=== PATIENT | female | born 1975 | race Caucasian/White ===

== ENCOUNTER 2017-09-24 11:29 | Emergency (ER) | payer OTHER, SELFPAY ==
[2017-09-24 11:31] VITALS: BP 120/76; PULSE 79; RESP 16; O2SAT 100; BMI 22.3
--- NOTE | 2017-09-24 11:42 | NURSING ---
NO OLD EKGS
--- NOTE | 2017-09-24 11:48 | EKG12_ITS ---
Test Reason : CP Blood Pressure : / mmHG Vent. Rate : 082 BPM Atrial Rate : 082 BPM P-R Int : 128 ms QRS Dur : 074 ms QT Int : 360 ms P-R-T Axes : 069 043 063 degrees QTc Int : 420 ms Normal sinus rhythm Normal ECG Confirmed by LEEANN DUBON, BERNICE ([id number]), editorial director ILDEFONSO ROLDAN ([id number] on 09/27/2017 8:37:59 AM Referred By: Confirmed By:BERNICE BRADSHAW MD
[2017-09-24 12:06] LABS: Absolute Lymphocyte Count 1.02 X10^3/ul (0.83-4.51); Absolute Neutrophil Count 3.8 X10^3/uL (2.0-7.7); Basophil# 0.04 X10^3/uL; Basophil% 0.8 % (0-1); Eosinophil# 0.05 X10^3/uL; Hematocrit 38.5 % (37-47); Hemoglobin 12.5 g/dl (12.0-15.0); Lymphocyte # 1.02 X10^3/ul (4.0); Lymphocyte % 19.6 % (19-41); Mean Corp Hgb Conc 32.5 g/gl (32-36); Mean Corpuscular Volume 101.6 fL (81-99); Mean Platelet Vol. 10.3 fl (6.2-12.0); Monocyte# 0.34 X10^3/uL; Monocyte% 6.5 % (0-10); Neutrophil # 3.75 X10^3/uL (2.7-7.7); Neutrophil % 71.9 % (47-70); Platelet Count 280 K/mm3 (150-450); RBC Distribution Width CV 12.4 % (11.6-14.6); RBC Distribution Width SD 45.5 fl (35.1-43.9); Red Blood Count 3.79 M/mm3 (4.2-5.4); White Blood Count 5.2 K/mm3 (4.4-11.0)
[2017-09-24 12:08] LABS: POSITIVE COUNT NO; POSITIVE DIFFERENTIAL NO; POSITIVE MORPHOLOGY NO
--- NOTE | 2017-09-24 12:14 | RAD_ITS ---
STUDY: X-RAY CHEST REASON FOR EXAM: Female, 41 years old. Chest pain. TECHNIQUE: PA and lateral views of the chest. COMPARISON: Prior comparison studies are not available for review at this time. FINDINGS: Cardiac monitoring leads are present. The lungs are clear and hyperexpanded. There is no demonstrated pleural abnormality. Normal size heart. Normal mediastinum and flakita. There is prominence of the pulmonary hilar arteries without peripheral pulmonary vascular congestion. Normal visualized aortic arch and descending thoracic aorta. There is an increased kyphosis of the thoracic spine. Normal visualized ribs, clavicles, and shoulders. There is no demonstrated abnormality of the visualized soft tissue structures of the upper abdomen. RAD/Chest PA and Lateral IMPRESSION: No radiographic evidence of acute cardiopulmonary disease. Electronically Signed: Debbie Hill MD at 12:33 EST , Service support ,
[2017-09-24 12:22] LABS: Anion Gap 9 (5-15); BUN 9 mg/dL (7-18); BUN/Creat Ratio 10.9 RATIO (10-20); Calcium,Total 9.4 mg/dL (8.5-10.1); Chloride 104 mmol/L (98-107); Creatinine, Serum 0.83 mg/dL (0.55-1.02); EST Glomerular Filtration Rate 81 mL/min (>60); Est Glom Filt Rate - Afr Amer 98 mL/min (>60); Glucose 87 mg/dL (74-106); Potassium 4.2 mmol/L (3.5-5.1); Sodium Level 142 mmol/L (136-145)
[2017-09-24 12:37] VITALS: BP 109/57; PULSE 84; RESP 18; O2SAT 100
--- NOTE | 2017-09-24 12:39 | ED.DCSUM_ITS ---
- ER Visit Summary Date of Service: 09/24/17 Chief Complaint: Chest pain History of Present Illness: The patient is a 41 F presenting with 2 weeks of intermittent midsternal nonradiating chest pain that has now been constant for the past 48 hours. She has a history of mitral valve prolapse and palpitations as well as anxiety and this does feel somewhat similar but she was concerned because the symptoms have been fairly constant now for 2 days. The pain is not pleuritic nor is it exertional or associated with diaphoresis or dyspnea. She denies recent travel or mobilization. She has been under a fair amount of stress recently and has been seeing a counselor. Denies any suicidal thoughts or ideation. Physical Examination: Vital signs are within normal limits. She is not in distress. Neck is supple. Heart tones are regular and without murmur. Lungs are clear bilaterally. Abdomen is soft and nontender. No tenderness along the lower extremity venous system, palpable cords, edema, or other evidence of DVT. Test Results: CBC and chemistries both normal. Troponin negative after 48 hours of constant symptoms. EKG unremarkable. Two-view chest x-ray unremarkable based on my independent interpretation. Emergency Department Course and Treatment: Workup here is unremarkable. Troponin negative after 2 days of symptoms which makes acute coronary syndrome extremely unlikely. The pain is not pleuritic and she has no clinical evidence of DVT. Additionally, her pulse ox is 100% so I think that pulmonary embolism is unlikely. Overall she looks well and I think she can safely follow-up as an outpatient. Treatment Plan: Follow-up with her primary care physician Disposition: Home in stable condition Impression: Initial encounter chest pain of uncertain etiology, initial encounter anxiety This note was generated with [employer] dictation software. It may contain incorrect words, spelling, and punctuation that were not noted in review of the chart prior to signing ED Disposition - Plan for ED Patient: Chief Complaint: Chest Pain Instructions: ED Chest Pain Atypical Unkn Cause Referrals: Ciara Frederick DO [Primary Care Provider] -
[2017-09-24 12:59] VITALS: BP 107/61; PULSE 71; RESP 16; O2SAT 100
== END 2017-09-24 13:04 | disposition home or self-care (01) ==
LOC: ED 12:41
PROVIDERS: Emergency Provider Emergency Medicine; Family Provider Internal Medicine; PCP Internal Medicine
DX: R07.9 Chest pain, unspecified (principal); R00.2 Palpitations; F41.9 Anxiety disorder, unspecified
CPT/HCPCS: 71046; 80048; 84484; 85025; 93005; 99285; A4216

== ENCOUNTER 2018-09-04 21:45 | Inpatient (IN) | payer OTHER, SELFPAY ==
[2018-09-04 17:22] VITALS: BMI 32.8
--- NOTE | 2018-09-04 20:49 | OB.TRI.NOTE ---
- Problem List (1) Advanced maternal age (AMA), 40 years or greater Status: Acute (2) Previous section Status: Acute (3) False labor after 37 completed weeks of gestation Status: Acute History of Present Illness Date of Service: 09/04/18 Was patient seen by the physician?: Yes Reason For Visit: R/O LABOR Date of Service: 09/04/18 Final DESMOND: 09/06/18 Final DESMOND Source: LMP Gestational age: 39 Weeks and 5 Days History of Present Illness: Patient presents to triage for labor evaluation today. Patient is 39+5 weeks by LMP and early 1st trimester ultrasound dating. Patient reports that ctx were intermittent on and off throughout last night and then became regular q 30 minutes apart starting at 0700 in the morning. As the day progressed, the ctx also progressed and became longer and stronger to where they are every 2-5 minutes apart and lasting 30-90 seconds in length. Patient denies VB, denies SROM. reports +FM. Patient's course has been uncomplicated though her history is significant for hx of multiple myomectomies that did not perforate through uterus and hx of LTCS for intolerance to labor with persistent deep variables from partially prolapsed umbilical cord. Allergies celecoxib [From Celebrex] Allergy (Verified 09/24/17 11:30) Other latex Allergy (Verified 09/24/17 11:30) Other morphine Allergy (Verified 09/24/17 11:30) Anaphylaxis NSAIDS (Non-Steroidal Anti-Inflamma Allergy (Verified 09/04/18 17:38) Hives food dye Allergy (Uncoded 09/04/18 17:38) Hives Review of Systems Constitutional: Denies: Chills, Fever, Weight Change HEENT: Denies: Head Aches, Sinus Congestion, Sinus Drainage Cardiovascular: Denies: Chest Pain, Palpitations Respiratory: Denies: Cough, Shortness of breath at rest, Sputum production Gastrointestinal: Denies: Nausea, Vomiting Genitourinary: Denies: Dysuria Musculoskeletal: Denies: Joint Pain, Joint Tenderness Skin: Denies: Rash, Wounds Neurological: Denies: Numbness, Tingling, Focal weakness Psychiatric: Denies: Anxiety, Depression, Homicidal Ideations, Suicidal Ideations Hematologic/ Lymphatic: Denies: Easy Bruising, Easy Bleeding Physical Exam Vitals: See nursing note for vital signs - patient is afebrile and normotensive General: Alert, Oriented x3, No apparent distress HEENT: Atraumatic, Normocephalic. Negative for: Thyromegaly, Lymphadenopathy Cardiovascular: Regular rate, Regular Rhythm Lungs: Clear to auscultation Abdomen: Soft, Non Tender, Gravid, Appropriate for Gestational Age Extremities:: No edema Neurological: Deep Tendon Reflexes 2+/4 and Symmetrical, Neuro grossly intact RHEUMATOLOGY SPECIALIST: Normal external genitalia. Negative for: Vulvar lesions Estimated gestational size: Appropriate for gestational size Presentation: Cephalic Cervix Dilation (cm): 3 - Per RN Station: -2 Effacement (%): 80 NST - FHR Rate Baby A Baseline: 130 Variability:: Moderate Accelerations:: 15 x 15 Decelerations:: None NST Reactive:: Yes, Appropriate for gestational age FHR Category:: Category I Uterine Activity:: Ctx q 2-10 minutes, most mildly palpable with strongest palpable about 10 minutes apart. Ctx lasting 40-120 seconds. Impression/Plan 42 y/o @ 39.5 wks, Category I FHT, TOLAC, Early vs. False Labor P: 1) Consultation with Dr. Tsang OB back-up - cervix is unchanged after several hours after walking and position changes. Patient elects discharge to home as NST is reactive 2) Labor precautions reviewed 3) RTC as scheduled tomorrow if labor does not progress for repeat labor evaluation Siri NIXON
[2018-09-04] MEDS: Lactated Ringers 1,000 ML 50 ML IV ×2 (22:32→23:40)
--- NOTE | 2018-09-04 22:39 | PCM.HP.OB ---
- Problem List (1) Advanced maternal age (AMA), 40 years or greater Status: Acute (2) Previous section Status: Acute (3) False labor after 37 completed weeks of gestation Status: Acute History Date of Admission: 09/04/18 Final DESMOND: 09/06/18 Final DESMOND Source: LMP Gestational age: 39 Weeks and 5 Days History of this : This is a 42 year-old, G [4], P [1], at 39.5 weeks gestational age returns back to triage reporting stronger and more intense contractions currently. Patient reports that contractions are closer and stronger now. Patient denies any vaginal bleeding, leaking of fluid or additional vaginal discharge. Patient continues to feel +FM. Per patient, contractions are coming <5 minutes apart and are lasting 60-120 seconds long. See [facility] record for full Personal Medical, Surgical, and Family Hx Allergies celecoxib [From Celebrex] Allergy (Verified 09/24/17 11:30) Other latex Allergy (Verified 09/24/17 11:30) Other morphine Allergy (Verified 09/24/17 11:30) Anaphylaxis NSAIDS (Non-Steroidal Anti-Inflamma Allergy (Verified 09/04/18 17:38) Hives food dye Allergy (Uncoded 09/04/18 17:38) Hives Home Medications: Home Medications Albuterol Aerosols 09/04/18 Cetirizine HCl [Zyrtec] 10 mg PO 09/04/18 DiphenhydrAMINE [Benadryl] 25 mg PO BID PRN PRN 09/04/18 Epinephrine [Epi Pen] 0.3 mg 09/04/18 L.acidoph,Paracasei, B.lactis [Probiotic] 1 each PO 09/04/18 Vits [Prenatabs FA] 1 tablet PO DAILY 09/04/18 Zantac 09/04/18 Zoloft 50mg PO daily Smoking Status: Former smoker Alcohol: None History Past Pregnancies: Past Pregnancies Delivery Date Name GA/Weeks Outcome Route Weight Infant Gender Labor Length Anesthesia Delivery Location Provider FOB 09/2004 6 weeks SAB 12/2013 40 weeks Live LTCS 7#3oz F 12/2016 11 weeks [facility] Labs: GBS neg, 1 hour GCT = 88, AFP Neg, Urine Tox Neg, O+ Abs Neg, Syphilis Neg, HIV NR, Rubella Immune, HepBsAg Neg, GC/CT = Neg/Neg, Urine Culture Neg, CBC WNL, TSH = 1.860, Vit B12 = 545 Expected Delivery Method: Spontaneous Vaginal, Describe any other labor & delivery plans:: Patient is considering an epidural at this time - may elect Nitrous Oxide first Number of Visits: 15 Review of Systems Constitutional: Denies: Chills, Fever, Weight Change HEENT: Denies: Head Aches, Sinus Congestion, Sinus Drainage Cardiovascular: Denies: Chest Pain, Palpitations Respiratory: Denies: Cough, Shortness of breath at rest, Sputum production Gastrointestinal: Denies: Abdominal Pain, Nausea, Vomiting Genitourinary: Denies: Dysuria Musculoskeletal: Denies: Joint Pain, Joint Tenderness Skin: Denies: Rash, Wounds Neurological: Denies: Numbness, Tingling, Focal weakness Psychiatric: Denies: Anxiety, Depression, Homicidal Ideations, Suicidal Ideations Hematologic/ Lymphatic: Denies: Easy Bruising, Easy Bleeding Physical Exam Vitals: VSS, Afebrile - see nursing note for copy of vital signs General: Alert, Oriented x3, No apparent distress HEENT: Atraumatic, Normocephalic. Negative for: Thyromegaly, Lymphadenopathy Cardiovascular: Regular rate, Regular Rhythm Lungs: Normal air movement Abdomen: Soft, Non Tender, Gravid, - - palpate strong with contractions Neurological: Deep Tendon Reflexes 2+/4 and Symmetrical, Neuro grossly intact BUTTON BREAKER: Normal external genitalia. Negative for: Vulvar lesions Estimated gestational size: Appropriate for gestational size Presentation: Cephalic Cervix Dilation (cm): 4 - Per staff anesthesiologist Station: -2 Effacement (%): 80 Assessment/Plan All Active Problems Advanced maternal age (AMA), 40 years or greater (Acute) Previous section (Acute) False labor after 37 completed weeks of gestation (Acute) This is a 42 year-old, G [4], P [1], at 39.5 weeks gestational age, TOLAC, Category I FHT, Labor. P: 1) Admit patient - IV heplock started and admission bloodwork drawn 2) Expectant management at this time 3) Epidural at request - may have nitrous at this time 4) Dr. Tsang OB back-up aware of admission and plan of care at this time 5) Anticipate Siri Hernández WASTE DISPOSAL ATTENDANT-JAQUELINEM
[2018-09-04 23:16] LABS: Hematocrit 38.6 % (37-47); Hemoglobin 12.5 g/dl (12.0-15.0); Mean Corp Hgb Conc 32.4 g/gl (32-36); Mean Corpuscular Hgb 33.2 pg (27.0-32.0); Mean Corpuscular Volume 102.4 fL (81-99); Mean Platelet Vol. 11.6 fl (6.2-12.0); Platelet Count 177 K/mm3 (150-450); RBC Distribution Width CV 17.8 % (11.6-14.6); RBC Distribution Width SD 64.5 fl (35.1-43.9); Red Blood Count 3.77 M/mm3 (4.2-5.4); White Blood Count 15.2 K/mm3 (4.4-11.0)
[2018-09-04 23:18] LABS: Scan Indicated on CBC? Y/N NO
--- NOTE | 2018-09-05 00:33 | PCM.PN.BLA ---
Progress Note Addendum: Update from nursing staff. Patient is now 5/80/-2 and continues to contract regularly at this time. HEEL SANDER RUBBER has been present in patient's room and spoke with patient. Epidural catheter has been placed but was not fully dosed per patient's preference, only test dose was given. Patient continues to labor well, supported at bedside by her . O: VSS, Afebrile FHT baseline 130, moderate variability, + accels, no decels noted Ctx q 3-5 minutes, lasting 60-120 seconds, palpate strong SVE = Deferred by this provider at this time, as last exam by RN < 1 hour ago P: 1) Dr. Tsang updated on patient status 2) Continue expectant management, encourage PO hydration and position changes 3) Will reassess cervix PRN with changes in maternal or status. Siri Hernández APRN-MAREN
--- NOTE | 2018-09-05 00:43 | PN_ITS ---
Progress Note Addendum: Update from nursing staff. Patient is now 5/80/-2 and continues to contract regularly at this time. PROCUREMENT CONSULTANT has been present in patient's room and spoke with patient. Epidural catheter has been placed but was not fully dosed per patient's preference, only test dose was given. Patient continues to labor well, supported at bedside by her . O: VSS, Afebrile FHT baseline 130, moderate variability, + accels, no decels noted Ctx q 3-5 minutes, lasting 60-120 seconds, palpate strong SVE = Deferred by this provider at this time, as last exam by RN < 1 hour ago P: 1) Dr. Tsang updated on patient status 2) Continue expectant management, encourage PO hydration and position changes 3) Will reassess cervix PRN with changes in maternal or status. Siri Hernández APRN-MAREN
--- NOTE | 2018-09-05 03:31 | PCM.PN.OB ---
Patient Problems: Active and Suspected Problems Advanced maternal age (AMA), 40 years or greater (Acute) Previous section (Acute) False labor after 37 completed weeks of gestation (Acute) Subjective: Patient changing positions, rocking back and forth while standing. Intermittent external monitoring of baby noted - recommendation for placement of internal monitors at this time to better assess heart tones and contraction pattern. Patient chose to have epidural catheter placed, considering having epidural dosed soon as her labor is becoming more uncomfortable. Patient requests SVE check at this time. Objective: FHT baseline 130, moderate variability, + accels, rare early or mild variable decel with mario to 110 for 10-15 seconds during contraction noted Ctx q 2-5 minutes, palpate moderate to strong lasting 60 seconds SVE = 6/90/-1, AROM for scant pink-brown fluid. Fluid without odor. FSE and IUPC placed at this time. - Physical Exam General: Alert, Oriented x3, Cooperative HEENT: Normocephalic Lungs: Normal air movement Cardiovascular: Regular rate, Regular Rhythm Abdomen: Soft, Non Tender, Non-Distended Extremities: No edema Weight: 191 lb Body Mass Index (BMI) 32.8 Laboratory Tests Past 24 Hrs 09/04/18 09/04/18 22:32 22:32 WBC 15.2 H RBC 3.77 L Hgb 12.5 Hct 38.6 MCV 102.4 H MCH 33.2 H MCHC 32.4 RDW 17.8 H RDW Differential 64.5 H Plt Count 177 MPV 11.6 Blood Type O POSITIVE Antibody Screen NEGATIVE Medical Necessity - Tobacco Use Smoking Status: Former smoker Assessment/Plan All Active Problems Advanced maternal age (AMA), 40 years or greater (Acute) Previous section (Acute) False labor after 37 completed weeks of gestation (Acute) A: 42 y/o @ 39.6 weeks, TOLAC, Category I FHT, Active Labor P: 1) Continue to monitor contraction pattern, if inadequate contraction pattern consider IV pitocin for labor augmentation 2) Patient requests epidural to be dosed at this time - anesthesia contacted 3) Anticipate , will start pushing with maternal urge or sensation of pelvic pressure Siri NIXON
[2018-09-05] MEDS: 0.9% Normal Saline 100 ML IV.SOLN. IV (03:45)
[2018-09-05] MEDS: Ondansetron 4 MG/2 ML Vial IV (04:02)
[2018-09-05] MEDS: Lactated Ringers 1,000 ML 50 ML IV ×2 (04:53→08:55)
--- NOTE | 2018-09-05 05:13 | PCM.PN.BLA ---
Progress Note Addendum: Urgently called to patient's room - prolonged heart rate decel noted with mario to 60-90s x 5 minutes with spontaneous recovery with maternal position changes, fluid bolus and O2 administration by facemask. Cervical exam done and patient found to be C/C/+1. After decel heart tracing baseline returned to 120 with moderate variability. + scalp stim also noted during exam. Will start trial of pushing soon. Anticipate . Dr. Tsang appraised of patient status and plan to start pushing shortly. Siri Hernández APRN-MAREN
--- NOTE | 2018-09-05 06:56 | PCM.PN.BLA ---
Progress Note Patient continues to push at this time - station of head remains +1 station. Patient reports fatigue - starting to feel increased incidence of heartburn and more frequent vomiting noted. Dr. Tsang updated of patient status, will continue to push at this time. Siri NIXON
--- NOTE | 2018-09-05 07:49 | PCM.PN.BLA ---
Progress Note Addendum: Patient reports exhaustion, feels like the baby is not moving down anymore and she is now requesting a repeat LTCS at this time. Repeat SVE = C/C/+1 station with small amount of caput. EFW = 8#, baby in LUAN position by Vlad's. Discussed option of IV pitocin administration for labor augmentation - contractions q 2 minutes currently and moderately strong to palpation. Patient declines IV pitocin augmentation. Desires to proceed with repeat LTCS at this time. Dr. Tsang notified of plan. Non-urgent LTCS called at this time - Category I FHT noted. Patient transferred to medical management. Will proceed with LTCS when Dr. Tsang is finished with her current operative case in the OR. Siri NIXON
--- NOTE | 2018-09-05 07:57 | PN_ITS ---
Progress Note Addendum: Patient reports exhaustion, feels like the baby is not moving down anymore and she is now requesting a repeat LTCS at this time. Repeat SVE = C/C/+1 station with small amount of caput. EFW = 8#, baby in LUAN position by Vlad's. Discussed option of IV pitocin administration for labor augmentation - contractions q 2 minutes currently and moderately strong to palpation. Patient declines IV pitocin augmentation. Desires to proceed with repeat LTCS at this time. Dr. Tsang notified of plan. Non-urgent LTCS called at this time - [facility] I T noted. Patient transferred to medical management. Will proceed with LTCS when Dr. Tsang is finished with her current operative case in the OR. Siri NIXON
--- NOTE | 2018-09-05 08:26 | NURSING ---
2304 elieser-aware of pt here , going to come in to evaluate pt 2311-elieser radar operator in room discussion done to place catheter and leave in, in the event of emergent situation for r c/s. 0009- test dose for epidural catheter 0337-called darwinr to come start epidural dosing 0345-epidural infusion started.
[2018-09-05] MEDS: Sodium Citrate/Citric Acid 30 ML UDC PO (08:55)
--- NOTE | 2018-09-05 09:08 | PCM.PN.BLA ---
Progress Note pt was seen at bedside, counseled on risks of repeat fully dilated Failed TOLAC c/s- pt was counseled on risks of bleeding, infection, injury to pelvic structures, trauma due to engaged head, cervical laceration. pt at this time accepts the risks and wishes to proceed. pt would like to proceed with BTL at this time as well. will proceed with section - pre op abx ordered- new consent obtained. FHR Cat 1.
[2018-09-05] MEDS: Oxytocin 30 units/NS 500 ml 30 UNITS/500 ML IV.SOLN 334 UNITS IV (09:59)
--- NOTE | 2018-09-05 10:17 | PCM.OB.VAG ---
Vaginal Delivery Maternal Presentation: Active Labor Amniotic Membrane Rupture Type: Artificial Amniotic Fluid Description: Clear Final DESMOND: 09/06/18 Gestational age: 39 Weeks and 6 Days Date of Procedure: 09/05/18 Pre-Operative Diagnosis: term gestation, TOLAC Post-Operative Diagnosis: Live male , successful , term gestation Surgery/ Procedure Performed: Vacuum Assisted Vaginal Delivery - Vacuum applied but suctioned was not able to be maintained- i was able to used the vacuum one pull with one popoff at +3 station- brought head to crowing and head delivered with good maternal effort. Type of Anesthesia: Epidural Description of Procedure: Pt was taken to OR for Repeat cs- while on table in supine position after epidural dosing i examined patient- found to be at +2-+3 station and at this time i felt the patient could deliver vaginally as trying to disengage head could cause more pontential injury. OR was complete with Double set up and staff available. Pt was placed in yellow fin stirrups and pushed effectively. Vacuum was attempted but unable to keep suction- however on one attempt suction remained and with gentle traction and good maternal pushing efforts the head crowned- vacuum popped off x 1 and with next contraction the infant delivered with good maternal effort- no complication with delivery. Delayed cord clamping performed. Terminal meconium noted. vigorous at delivery. Second degree perineal laceration repaired with 2-0 vicryl. placenta delivered spontaneously. Presentation: Vertex Placental Delivery Description: Spontaneous Placenta Disposition: [facility] Cord Vessel Description: 3 Vessels Cord Entanglement: None Drain: [place] to straight drain Estimated Blood Loss: 300 A gender: Male (1 minute): 8 (5 minute): 9 Episiotomy Description: None Laceration: Perineal Extension/lac - repaired with 2-0 vicryl, 2nd degree Medications given after delivery: IV Pitocin Complications: None
--- NOTE | 2018-09-05 10:23 | OP.PCM_ITS ---
Vaginal Delivery Maternal Presentation: Active Labor Amniotic Membrane Rupture Type: Artificial Amniotic Fluid Description: Clear Final DESMOND: 09/06/18 Gestational age: 39 Weeks and 6 Days Date of Procedure: 09/05/18 Pre-Operative Diagnosis: term gestation, TOLAC Post-Operative Diagnosis: Live male , successful , term gestation Surgery/ Procedure Performed: Vacuum Assisted Vaginal Delivery - Vacuum applied but suctioned was not able to be maintained- i was able to used the vacuum one pull with one popoff at +3 station- brought head to crowing and head delivered with good maternal effort. Type of Anesthesia: Epidural Description of Procedure: Pt was taken to OR for Repeat cs- while on table in supine position after epidural dosing i examined patient- found to be at +2-+3 station and at this time i felt the patient could deliver vaginally as trying to disengage head could cause more pontential injury. OR was complete with Double set up and staff available. Pt was placed in yellow fin stirrups and pushed effectively. Vacuum was attempted but unable to keep suction- however on one attempt suction remained and with gentle traction and good maternal pushing efforts the head crowned- vacuum popped off x 1 and with next contraction the infant delive red with good maternal effort- no complication with delivery. Delayed cord clamping performed. Terminal meconium noted. Infant vigorous at delivery. Second degree perineal laceration repaired with 2-0 vicryl. placenta delivered spontaneously. Presentation: Vertex Placental Delivery Description: Spontaneous Placenta Disposition: [facility] Cord Vessel Description: 3 Vessels Cord Entanglement: None Drain: [place] to straight drain Estimated Blood Loss: 300 Infant A gender: Male (1 minute): 8 (5 minute): 9 Episiotomy Description: None Laceration: Perineal Extension/lac - repaired with 2-0 vicryl, 2nd degree Medications given after delivery: IV Pitocin Complications: None
[2018-09-05] MEDS: Oxytocin 30 units/NS 500 ml 30 UNITS/500 ML IV.SOLN 167 UNITS IV (10:30)
[2018-09-05 18:00] VITALS: BP 112/61; PULSE 121; RESP 16; TEMP 36.4; O2SAT 97
[2018-09-05] MEDS: Acetaminophen 500 MG Tablet 1000 MG PO (18:22)
[2018-09-05 20:43] VITALS: BP 105/55; PULSE 103; RESP 16; TEMP 36.6; O2SAT 96
[2018-09-05 23:43] VITALS: BP 118/60; PULSE 61; RESP 18; TEMP 36.5; O2SAT 98
[2018-09-06 04:36] VITALS: BP 111/57; PULSE 75; RESP 18; TEMP 36.3; O2SAT 96
--- NOTE | 2018-09-06 08:11 | PCM.PN.OB ---
Patient Problems: Active and Suspected Problems Advanced maternal age (AMA), 40 years or greater (Acute) Previous section (Acute) False labor after 37 completed weeks of gestation (Acute) Subjective: pt seen up at bedside, doing well. reports good pain control. Lochia mild. Breast feeding well. pt reports voiding w/o difficulty - Physical Exam General: Alert, Oriented x3 Vital Signs Temp Pulse Resp BP Pulse Ox 97.4 F L 75 18 111/57 L 96 09/06/18 04:36 09/06/18 04:36 09/06/18 04:36 09/06/18 04:36 09/06/18 04:36 Oxygen Delivery Method Room Air Weight: 86.636 kg Body Mass Index (BMI) 32.8 Intake and Output for Last 24 Hours 09/04/18 09/05/18 09/06/18 23:59 23:59 23:59 Intake Total 3212 / 3212 Output Total 1425 / 1425 Balance 1787 / 1787 Medical Necessity - Tobacco Use Smoking Status: Former smoker Assessment/Plan All Active Problems Advanced maternal age (AMA), 40 years or greater (Acute) Previous section (Acute) False labor after 37 completed weeks of gestation (Acute) PPD#1, doing well Pain mgmt ambulation dc home requested per patient
--- NOTE | 2018-09-06 08:15 | DCINST_ITS ---
Discharge Diet: No Restrictions Discharge Activity: Return to Normal Activity, May not drive while taking narcotic pain medications., May Shower May resume sexual activity in: 4-6 weeks Additional Activity Instructions:: Nothing in the vagina for 4-6 weeks. You may return to work/school in 6 weeks. Call your doctor if your incision/area has: Continuous Slow Oozing, Sudden Increased Bleeding, Increased Pain/ Swelling, Increased Redness, Foul Smelling Discharge Additional Instructions: If you experience any of the following, contact your healthcare provider. * Bleeding that soaks a pad every hour for 2 hours * Fever 100.4 or higher * Unrelieved incision or abdominal pain * Swelling, redness, discharge or bleeding from your incision or episiotomy site * Your incision begins to separate * Problems urinating (including inability to urinate or burning while urinating). * Visual changes * Severe headache * Flu-like symptoms * Pain or redness in one of both of your breasts * Pain, warmth, tenderness or swelling in your legs, especially the calf area * Frequent nausea and vomiting * Symptoms of depression or anxiety If you experience any of the following, call 911 or go to the nearest Emergency Room. * Chest pain * Problems breathing * Seizure activity * Partial or complete paralysis of a body part, slurred speech, weakness or drooping of the face, or a sudden inability to walk or hold your balance Allergies/Adverse Reactions: Allergies celecoxib [From Celebrex] Allergy (Verified 09/24/17 11:30) Other latex Allergy (Verified 09/24/17 11:30) Other morphine Allergy (Verified 09/24/17 11:30) Anaphylaxis NSAIDS (Non-Steroidal Anti-Inflamma Allergy (Verified 09/04/18 17:38) Hives food dye Allergy (Uncoded 09/04/18 17:38) Hives Medications to take at Discharge Albuterol Aerosols 2 puff PO PRN PRN 09/04/18 Cetirizine HCl [Zyrtec] 10 mg PO DAILY 09/04/18 DiphenhydrAMINE [Benadryl] 25 mg PO BID PRN PRN 09/04/18 Epinephrine [Epi Pen (for allergic rxn)] 0.3 mg PRN PRN 09/04/18 L.acidoph,Paracasei, B.lactis [Probiotic] 1 each PO DAILY 09/04/18 Vits [Prenatabs FA ] 1 tablet PO DAILY 09/04/18 Zantac 150 mg PO BID 09/04/18 Ferrous Sulfate Syrup 300 mg PO DAILY@0800 09/05/18 Pyridoxine HCl [Vitamin B6] 100 mg PO DAILY 09/05/18 Acetaminophen [Tylenol] 1,000 mg PO Q8H PRN PRN #30 tablet 09/06/18 The following prescriptions were given: Acetaminophen [Tylenol] 1,000 mg PO Q8H PRN PRN #30 tablet PRN Reason: MILD PAIN (-10/29)/Temp>99.6F When: Call to make an appointment with your doctor in 6 weeks. If you had elevated Blood Pressure or 4th degree laceration you will need to be seen in 2 weeks. Primary Care Physician: Cheryl Maguire DO [Primary Care Provider] - Test Results: Test results from this visit will be discussed in further detail at your follow- up appointment, if applicable.
[2018-09-06 09:25] VITALS: BP 102/56; PULSE 83; RESP 16; TEMP 36.8; O2SAT 96
--- NOTE | 2018-09-06 12:45 | CASEMGMT ---
Social Work Brief Assessment - Labor and Delivery Unit Refer documentation below for further details. Date of Referral/Notification: 12/04/2018 Time of Referral: 9 Referred By: Dr Lemus Reason for Referral: maternal anxiety history Date of Intervention: 09-06-2018 Time of Intervention: 1245 Informant: Medical record and mother of baby (JERE) Marni Morelos History: MOB is a 42-year-old female, G4, P1 to 2 after delivering baby Vasiliy Morelos. MOB delivered baby via delivery. Baby Vasiliy weighed 7 pounds 14 ounces at , ?s 8 and 9 at 1 and 5 minutes of life. MOB with history of IUI though for child born in 2013. MOB has an older daughter at home. Father of baby (FOB) is the father to both children and is Mark Murdock, age 49. Mark as older sons from a previous marriage, who all live out of [facility]. MOB denies abuse in relationship with FOB. MOB reports originally from the [facility] and moved back from [place] 2 years ago, first trying out the [facility] for a while and then moving back to [place]. MOB reports to have a college education, does stay at home at this point to care for the children. FOB works in management at [employer]. MOB reports depression and anxiety during this , prescribed Zoloft and that this has been helpful. MOB does have a counselor named Tessy. MOB reports that FOWilfrid has bipolar disorder, has been through [facility] IOP program, and is in current outpatient treatment. MOB reports family history for self of a sister, father, and grandfather with history of bipolar disorder. MOB repots a niece also struggles with depression. MOB denies nay history of suicidal thoughts, plans, intent, or past attempts. No thoughts of harm to others either. MOB denies any substance use or abuse history. Maternal drug screen done on 01-26-18 and negative for any drugs of abuse. Assessment: MOB pleasant, cooperative, talkative and engaged in conversation with this typewriters functional tester. MOB held good eye contact and with logical thought process and normal speech patterns. MOB reports to have needed supplies for baby, to have adequate finances, to have adequate support from FOB and from MOB?s mother who lives locally. MOB reports to feel a connection to this baby and is looking forward to going home. MOB receptive to discussions about depression, anxiety, psychosis risks and importance of self-care. MOB plans to remain on antidepressants in the period. MOB denies any concerns for home going and accepting of community resource information and depression packet this typewriters functional tester provided. Note, MOB attentive, gentle and engaged with during social work visit, had baby to breast, smiled at baby, and gazed at baby intermittently. MOB expressed thanks for social work visit and support this date. Plan: MOB and baby to home today. [facility] resources and packet provided including online and local supports available. No further needs requested or indicated. -JESSICA Solis, MS
[2018-09-06 13:59] VITALS: BP 114/60; PULSE 104; RESP 18; TEMP 36.6; O2SAT 96
== END 2018-09-06 16:15 | disposition home or self-care (01) | DRG 807 ==
PROVIDERS: Admitting Provider Obstetrics & Gynecology; Family Provider Internal Medicine; PCP Internal Medicine; Referring Provider Obstetrics & Gynecology; Visit Provider Obstetrics & Gynecology
DX: O34.219 Maternal care for unspecified type scar from previous cesarean delivery (principal); O76 Abnormality in fetal heart rate and rhythm complicating labor and delivery; O75.81 Maternal exhaustion complicating labor and delivery; O77.0 Labor and delivery complicated by meconium in amniotic fluid; O70.1 Second degree perineal laceration during delivery; Z88.5 Allergy status to narcotic agent; Z88.8 Allergy status to other drugs, medicaments and biological substances; Z91.040 Latex allergy status; Z87.891 Personal history of nicotine dependence; Z3A.39 39 weeks gestation of pregnancy; Z37.0 Single live birth
CPT/HCPCS: 59025; 59050; 85027; 86850; 86900; 99218; J7120; G0378; J2405

== ENCOUNTER 2019-06-21 13:32 | Emergency (ER) | payer MEDICAID, SELFPAY ==
[2019-06-21 13:33] VITALS: BP 119/83; PULSE 124; RESP 18; TEMP 36.1; O2SAT 95; BMI 27.4
--- NOTE | 2019-06-21 14:43 | ED.VISSUMM ---
- ER Visit Summary Date of Service: 06/21/19 Chief Complaint: [Sore throat] History of Present Illness: The patient is a 43 F [presents to the ER with complaint of a sore throat that started yesterday. Patient states that her daughter was seen in the emergency department yesterday and had a negative strep screen. Patient eventually was started on amoxicillin empirically until her culture results came back. Patient also has a young son with her today that also being seen in the emergency department who was seen for a viral URI by his primary care physician earlier in the week. Patient has minimal cough. She is had no fever. Patient has history of mastocytosis and history of mitral valve prolapse. Patient has had prior appendectomy and prior tonsillectomy.] Physical Examination: [HEENT-PERRLA, EOMI. Cranial nerves II through XII grossly intact. TMs clear. Mucous membranes moist. No adenopathy. Tonsils are absent. No pharyngeal erythema. No ulcerating lesions noted. Uvula midline without trismus. No significant adenopathy. Cardiovascular-regular rate and rhythm without murmur or ectopy Lungs-clear to auscultation, chest wall stable without crepitus or subcu emphysema Abdomen-normoactive bowel sounds, soft, nontender, no rebound or rigidity, no peritoneal signs. Extremities-intact ?4, normal range of motion, normal pulses, atraumatic] Test Results: [Rapid strep screen performed was negative.] Emergency Department Course and Treatment: [Patient to follow-up with primary care physician in 3 to 5 days.] Treatment Plan: [Follow up with primary care physician 3 to 5 days.] Disposition: [Discharged to home in stable condition] Impression: [Viral pharyngitis] This note was generated with [employer] dictation software. It may contain incorrect words, spelling, and punctuation that were not noted in review of the chart prior to signing ED Disposition - Plan for ED Patient: Referrals: Cheryl Maguire DO [Primary Care Provider] -
--- NOTE | 2019-06-21 14:45 | ED.DEP ---
ED Disposition - Plan for ED Patient: Instructions: PHARYNGITIS, Viral Referrals: Cheryl Maguire DO [Primary Care Provider] - 3-5 Days
[2019-06-21 14:51] VITALS: PULSE 98; RESP 17; O2SAT 96
== END 2019-06-21 14:56 | disposition home or self-care (01) ==
LOC: ED 13:54
PROVIDERS: Emergency Provider Emergency Medicine; Family Provider Internal Medicine; PCP Internal Medicine
DX: J02.8 Acute pharyngitis due to other specified organisms (principal); I34.1 Nonrheumatic mitral (valve) prolapse; Z79.899 Other long term (current) drug therapy
CPT/HCPCS: 87880; 99282

== ENCOUNTER → 2019-09-17 15:22 | Outpatient (CLI) | payer MEDICAID, SELFPAY ==
[2019-09-17 14:58] VITALS: BMI 27.4
--- NOTE | 2019-09-17 15:23 | RAD_ITS ---
STUDY: X-RAY CHEST REASON FOR EXAM: Female, 43 years old. Pt. states she has had a cough since MAY 2019, currently paired with a fever TECHNIQUE: PA and lateral views of the chest. COMPARISON: Comparison is made with prior examination dated September 24, 2017. FINDINGS: The lungs are clear and expanded. Scattered calcified granulomas. There is no demonstrated pleural abnormality. Normal size heart. Normal mediastinum and flakita. Normal visualized pulmonary arteries. Normal visualized aortic arch and descending thoracic aorta. Normal visualized thoracic spine. Normal visualized ribs, clavicles, and shoulders. There is no demonstrated abnormality of the visualized soft tissue structures of the upper abdomen. RAD/Chest PA and Lateral IMPRESSION: Normal x-ray examination of the chest. Electronically Signed: Orion Gaines, at 15:44 EST , Service support ,
== END ==
LOC: HPRAD 15:23
PROVIDERS: PCP Internal Medicine; Referring Provider Physician Assistant Surgical; Visit Provider Physician Assistant Surgical
DX: J20.9 Acute bronchitis, unspecified (principal)
CPT/HCPCS: 71046

== ENCOUNTER 2021-02-26 07:56 | Day surgery (SDC) | payer MEDICAID, SELFPAY ==
[2019-09-17 14:58] VITALS: BMI 27.4
--- NOTE | 2021-02-18 16:15 | PCM.HP.BLA ---
History and Physical Date of Admission: 02/26/21 Marilee Tsang MD Physician Specialty: SENIOR TALENT ACQUISITION SPECIALIST H&P ? Signed Encounter Date: 02/17/2021 Expand AllCollapse All Expand All by Default Hide copied text Hover for details Pre-Op History and Physical ? HPI: The patient is a 25 year old female presenting for discussion regarding painful heavy menses and possible EM polyp found on ultrasound. Pt was given management options and would like to proceed with surgical intervention with Hysteroscopy, D&C, polypectomy. Pt reports doing well with new pill- had menses still heavy and did have a couple days of light spotting after stopping menses. ? She is scheduled for Hysteroscopy D&C and polypectomy, for AUB, Endometrial polyp on 02/26/21. Procedure discussed along with risks, benefits and complications. Other alternatives discussed for management. Consent form signed? Yes. ? ? PAST MEDICAL HISTORY PAST MEDICAL HISTORY Diagnosis Date ? Abdominal pain, right lower quadrant ? ? Suspected ruptured ovarian cyst ? Acute appendicitis without mention of peritonitis 06/22/2011 ? Dysmenorrhea ? ? HSV (herpes simplex virus) anogenital infection 2017 ? PMH - PAST MEDICAL HISTORY OF 02/03/2002 ? color vision - normal ? PMH - PAST MEDICAL HISTORY OF ? ? Started Menstrual Period 06/30 ? ? PAST SURGICAL HISTORY PAST SURGICAL HISTORY Procedure Laterality Date ? LAPAROSCOPY, SURGICAL, APPENDECTOMY ? 06/22/11 ? ? ? CURRENT MEDICATIONS Current Outpatient Medications Medication Sig Dispense Refill ? valACYclovir (VALTREX) 500 mg tablet Take 1 tablet by mouth twice daily. 14 tablet 3 ? L-Norgest and E Estradiol-E Estrad (SEASONIQUE) 0.15 mg-30 mcg (84)/10 mcg (7) Take 1 tablet by mouth once daily. 1 Package 4 ? No current facility-administered medications for this visit. ? ? ALLERGIES: Patient has no known allergies. ? PERSONAL HISTORY: SOCIAL HISTORY Social History ? Tobacco Use ? Smoking status: Never Smoker ? Smokeless tobacco: Never Used Vaping Use ? Vaping Use: Never used Substance Use Topics ? Alcohol use: No ? Drug use: No ? FAMILY HISTORY: FAMILY HISTORY FAMILY HISTORY Problem Relation Age of Onset ? other (Kidney Stones) Mother ? ? other (Crohn's) Mother ? ? other (congenital hip disease) Father ? ? Hypertension Maternal Grandmother ? ? Cancer Maternal Grandfather ? ? Cancer Paternal Grandfather ? ? Paternal side ? Cancer Maternal Uncle ? ? Hodgkins ? ? REVIEW OF SYMPTOMS: negative except as noted above PHYSICAL EXAMINATION: ? VITALS: Blood pressure 108/60, height 5' 6 (1.676 m), weight 135 lb (61.2 kg), last menstrual period 01/29/2021. ? GENERAL: The patient is well nourished, well hydrated in no acute distress. , The patient is oriented to time, place, and person. NECK: full range of motion ? IMPRESSION: AUB, endometrial polyp ? PLAN: Hysterscopy, D&C, polypectomy with symphion. ? Pt has been counseled on risks/benefits and alternatives of surgery including but not limited to anesthesia, bleeding, infection, uterine perforation with subsequent injury to pelvic structures including bowel, bladder, ureters and vessels. Pt wishes to proceed with surgery at this time. ? Covid testing reviewed- not vaccinated ? ? ? I have reviewed and updated past medical and surgical history, medications and allergies Marilee Tsang MD ?8:41 AM Office Visit on 02/17/2021 Office Visit on 02/17/2021 Note shared with patient Marilee Tsang MD Physician Specialty: SENIOR TALENT ACQUISITION SPECIALIST H&P ? Signed Encounter Date: 02/16/2021 Expand AllCollapse All Expand All by Default Hide copied text Hover for details Pre-Op History and Physical ? HPI: The patient is a 45 year old female presenting for discussion regarding AUB and desires sterilization. Pt reports if stops aygestin starts bleeding- pt wants to proceed with ablation and sterilization. She is scheduled for Hysteroscopy, Laura Ablation, and Laparoscopic bilateral salpingectomy, for AUB, Desires sterilization on 02/26/21. Procedure discussed along with risks, benefits and complications. Other alternatives discussed for management. Consent form signed? Yes. ? ? PAST MEDICAL HISTORY PAST MEDICAL HISTORY Diagnosis Date ? Anemia ? ? anxiety ? ? Asthma ? ? mild ? Complication of anesthesia ? ? Avoids narcotics - became unresponsive once morphine given ? Fibroids ? ? History of blood transfusion ? ? Infertility, female ? ? Needed IUI and clomid to conceive first child ? Mitral valve prolapse ? ? Urticaria pigmentosa ? ? ? PAST SURGICAL HISTORY PAST SURGICAL HISTORY Procedure Laterality Date ? APPENDECTOMY HX ? ? ? SNGL ? 01/06/2014 ? LTCS, double layer closure ? HYSTEROSCOPY ? ? ? x 4 others, one was 2 hrs w/ 5 liters of fluid used ? HYSTEROSCOPY; INTRAUT SEPTUM ? 01/05/2012 ? op report- myosure resection of septum and fibroid, no mention of entry into myometrium ? TONSILLECTOMY HX ? CURRENT MEDICATIONS Current Outpatient Medications Medication Sig Dispense Refill ? norethindrone (AYGESTIN) 5 mg tablet Take 1 tablet by mouth once daily. Take 1tab TID until bleeding stops, then take 1 tab BID for 2 two then one tab daily for 5 days. 90 tablet 0 ? albuterol HFA (PROVENTIL HFA, VENTOLIN HFA) 90 mcg/actuation inhaler Inhale 2 Puffs as instructed every 4 hours as needed (for wheezing and shortness of breath). 18 g 0 ? ferrous sulfate 220 mg (44 mg iron)/5 mL solution Take 5 mL by mouth once daily. 60 mL 1 ? EPINEPHrine (EPIPEN) 0.3 mg/0.3 mL auto-injector Inject 0.3 mg subcutaneously as needed. ? LACTOBACILLUS ACIDOPHILUS (PROBIOTIC ORAL) Take 1 tablet by mouth once daily. ? ? ? VIT/IRON FUM/FOLIC AC ( TABLET ORAL) Take 1 tablet by mouth once daily. ? ? ? mupirocin (CHICHI CANTU) Apply 1 Each to affected area as directed. (Patient not taking: Reported on 01/05/2021 ) 1 Tube 0 ? sertraline (ZOLOFT) 50 mg tablet Take 1 tablet by mouth once daily. Take 1/2 tab for 6 days then increase to 1 tab. 30 tablet 11 ? iron ps cmplx-vitamin D3 (NOVAFERRUM 125) 125 mg iron- 100 unit/5 mL liqd Take 5 mL by mouth every other day. 1 Bottle 0 ? ranitidine (ZANTAC) 150 mg tablet Take 150 mg by mouth twice daily. ? ? ? cetirizine (ZYRTEC) 10 mg tablet Take 10 mg by mouth once daily. ? ? ? pyridoxine HCl, vitamin B6, (VITAMIN B-6 ORAL) Take by mouth. (Patient not taking: Reported on 01/05/2021 ) ? ? ? CALCIUM CARB/MAGNESIUM OXID/D3 (CALCIUM MAGNESIUM + D ORAL) Take 1 tablet by mouth once daily. ? ? ? No current facility-administered medications for this visit. ? ? ALLERGIES: Celebrex [Celecoxib], Latex, Morphine, Narcotics [Opioids - Morphine Analogues], and Seasonal Allergies ? PERSONAL HISTORY: SOCIAL HISTORY Social History ? Tobacco Use ? Smoking status: Former Smoker ? ? Types: Cigarettes ? ? Quit date: 10/11/2002 ? ? Years since quittin.3 ? Smokeless tobacco: Never Used ? Tobacco comment: Smoked one pack a week x 8 years. Substance Use Topics ? Alcohol use: No ? Drug use: No ? FAMILY HISTORY: FAMILY HISTORY FAMILY HISTORY Problem Relation Age of Onset ? Arthritis Mother ? ? Skin Cancer Mother ? ? Heart Mother ? ? Skin Cancer Sister ? ? No Known Problems Father ? ? Arthritis Maternal Grandmother ? ? Hypertension Maternal Grandmother ? ? Heart Maternal Grandfather ? ? Arthritis Paternal Grandmother ? ? Cancer Paternal Grandmother ? ? Aneurysm Paternal Grandfather ? ? Allergies Daughter ? ? ? REVIEW OF SYMPTOMS: negative except as noted above PHYSICAL EXAMINATION: ? VITALS: Blood pressure 138/78, weight 171 lb (77.6 kg), last menstrual period 12/24/2020, currently . ? GENERAL: The patient is well nourished, well hydrated in no acute distress. , The patient is oriented to time, place, and person. NECK: full range of motion ? IMPRESSION: 45yo with AUB and desires sterilization ? PLAN: Laparoscopic bilateral salpingectomy, Hysteroscopy, Laura ablation. ? Pt has been counseled on risks/benefits and alternatives of surgery including but not limited to anesthesia, bleeding, infection, injury to pelvic structures including bowel, bladder, ureters and vessels. Pt wishes to proceed with surgery at this time. Title 19 signed 01/23/21 Covid Vaccinated. I have reviewed and updated past medical and surgical history, medications and allergies Marilee Tsang MD ? ? Office Visit on 02/16/2021 Office Visit on 02/16/2021 Note viewed by patient
[2021-02-26 08:21] LABS: Internal QC Validated? YES +Cl - CLEAR BKGD; Pregnancy, Urine Negative Negative
[2021-02-26 08:33] LABS: Hematocrit 41.9 % (37-47); Hemoglobin 13.8 g/dL (12.0-15.0); Mean Corp Hgb Conc 32.9 g/dL (32-36); Mean Corpuscular Hgb 32.1 pg (27.0-32.0); Mean Corpuscular Volume 97.4 fL (81-99); Mean Platelet Vol. 9.8 fl (6.2-12.0); Platelet Count 298 K/mm3 (150-450); RBC Distribution Width CV 12.5 % (11.6-14.6); RBC Distribution Width SD 44.9 fl (35.1-43.9); White Blood Count 7.4 K/mm3 (4.4-11.0)
[2021-02-26] MEDS: Lactated Ringers 1,000 ML 100 ML IV (08:35)
[2021-02-26 08:36] VITALS: BP 130/75; PULSE 90; RESP 16; TEMP 37.3; O2SAT 98; BMI 28.3
--- NOTE | 2021-02-26 09:15 | EMB_PTH ---
PATIENT: SOFIE SIEGEL LOC: [facility] [place] U#:[id number] AGE/SX: 45/F ROOM: RE02/26/[address]: Dr. Marilee Lemus, MDDOB: 1975 BED: DIS: 02/26/2021 SPEC #: [id number] RECD: 02/26/21 12:44 STATUS: JAMARI DELILAH #: [id number] CHICO: 02/26/21 09:[address]: Marilee Lemus DEPT: SURGICAL PATHOLOGY RECD BY: Kianna Olmedo ENTERED: 02/26/21 13:11 SP TYPE: ENDOM BX/C ANNIEHR DR: Dr. Cheryl Maguire, DO Tissues: A - Endometrium, NOS B - Fallopian tube Procedures: Surgery Specimen Level II Surgery Specimen Level IV HEADER OPERATION: Hysteroscopy, dilation and curettage, polypectomy, Symphion PRE-OP DIAGNOSIS: AUB, endometrial polyp TISSUE SUBMITTED: A ? Endometrial curettings and polyp, B ? Bilateral fallopian tubes MICROSCOPIC DIAGNOSIS A. Endometrium, curettings: Polypoid fragments of benign weakly proliferative to inactive endometrium. Benign stromal hyperplasia consistent with exogenous hormonal effect. B. Bilateral fallopian tubes, salpingectomies: Complete segments of fallopian tubes with no pathologic change. Benign paratubal cysts. AM:richard 02/27/2021 MICROSCOPIC DESCRIPTION Slides are reviewed. GROSS DESCRIPTION A - Received in fixative is one container labeled with the patient's name and designated endometrial curetting and polyp. The specimen consists of multiple irregular fragments of red-mandujano soft tissue that in aggregate measure 5.5 x 5 x 0.2 cm. The specimen is totally submitted in four cassettes. B - Received in fixative is one container labeled with the patient's name and designated bilateral fallopian tubes. The specimen consists of two fallopian tubes with an average length of 8 cm and has an average diameter of 0.5 cm. One fallopian tube contains a smooth, glistening paratubal cyst measuring 1 cm in greatest dimension and containing clear fluid. Both fallopian tubes have normal fimbriated ends. No mass lesions are identified. Perinatal Breastfeeding Assistant sections are submitted in two cassettes as follows: 1??fallopian tube with cyst, 2 - the other fallopian tube. / AM:richard 02/26/21 TC:5 CPT: 44526 x2, 82538
--- NOTE | 2021-02-26 09:15 | EMB_PTH ---
PATIENT: SOFIE SIEGEL [place] [facility] [place][id number] AGE/SX: 45/F ROOM: RE02/26/[address]: Dr. Marilee Lemus, MDDOB: 1975 BED: DIS: 02/26/2021 SPEC #: [id number] RECD: 02/26/21 12:44 STATUS: JAMARI DELILAH #: [id number] CHICO: 02/26/21 09:[address]: Marilee Lemus DEPT: SURGICAL PATHOLOGY RECD BY: Kianna Olmedo ENTERED: 02/26/21 13:11 SP TYPE: ENDOM BX/C ANNIEHR DR: Dr. Cheryl Maguire, DO Tissues: A - Endometrium, NOS B - Fallopian tube Procedures: Surgery Specimen Level II Surgery Specimen Level IV HEADER OPERATION: Hysteroscopy, dilation and curettage, polypectomy, Symphion PRE-OP DIAGNOSIS: AUB, endometrial polyp TISSUE SUBMITTED: A ? Endometrial curettings and polyp, B ? Bilateral fallopian tubes MICROSCOPIC DIAGNOSIS A. Endometrium, curettings: Polypoid fragments of benign weakly proliferative to inactive endometrium. Benign stromal hyperplasia consistent with exogenous hormonal effect. B. Bilateral fallopian tubes, salpingectomies: Complete segments of fallopian tubes with no pathologic change. AM:richard 02/27/2021 MICROSCOPIC DESCRIPTION Slides are reviewed. GROSS DESCRIPTION A - Received in fixative is one container labeled with the patient's name and designated endometrial curetting and polyp. The specimen consists of multiple irregular fragments of red-mandujano soft tissue that in aggregate measure 5.5 x 5 x 0.2 cm. The specimen is totally submitted in four cassettes. B - Received in fixative is one container labeled with the patient's name and designated bilateral fallopian tubes. The specimen consists of two fallopian tubes with an average length of 8 cm and has an average diameter of 0.5 cm. One fallopian tube contains a smooth, glistening paratubal cyst measuring 1 cm in greatest dimension and containing clear fluid. Both fallopian tubes have normal fimbriated ends. No mass lesions are identified. Pain Management Nurse sections are submitted in two cassettes as follows: 1??fallopian tube with cyst, 2 - the other fallopian tube. / AM:richard 02/26/21 TC:5 CPT: 83620 x2, 41662
[2021-02-26] MEDS: Bupivacaine Mpf 0.5% 30 ML VIAL (09:44)
[2021-02-26] MEDS: Lubricating Jelly 60 GM Tube 30 GM TOPICAL (09:44)
--- NOTE | 2021-02-26 10:16 | OP.PCM_ITS ---
Report of Operation Date of Procedure: 02/26/21 Pre-Operative Diagnosis: AUB, Desires sterilization Post-Operative Diagnosis: same, Septate uterus, endometrial Polyps, Surgery/Procedure Performed:: Hysteroscopy, D&C, Polypectomy , Laparoscopic bilateral salpingectomy Description of Surgical Findings:: Septate uterus noted - unable to perform ablation. Endometrial polyps - polypectomy with symphion performed Surgeon: Marilee Lemus supervisor in charge: Daphne Ramon Type of Anesthesia: General and Local Special Medications: 0.5% marcaine Specimen's removed: Bilateral fallopian tubes, Endometrial curettings, endometrial polyps Drains: none Estimated Blood Loss (mL): 5 Fluids Replaced: 800 Description of Procedure: Informed consent was obtained the patient was taken the operating room she was placed in supine position. She was given anesthesia. She was then placed in the [facility] where she was prepped and draped in the normal sterile fashion. At this time the weighted speculum was placed in the posterior fornix of vagina. Single-tooth tenaculum was used to gently grasp the anterior lip the cervix. At this time the uterine cavity was sounded to approximately 11 cm. Gentle dilatation was performed once adequate dilatation of the cervix was achieved the hysteroscope using normal saline as a distention medium was placed. septat uterus noted. At This time decision not to perform mary due to uterine anomly. Sharp currettage performed- large amount of tissue and polypoid tissue. decision to use Symphion resecting device used to perform further polypectomy. Tissue will be sent to pathology for evaluation. Maniulator placed for laparosocpic portion. Tenaculum removed. Legs then placed in parallel with the abdomen the tenaculum and the weighted speculum were removed. 2 towel clamps were placed at level of umbilicus. Marcaine was injected infraumbilical and a small incision was made. The 5 mm trocar was placed under direct visualization. CO2 gas was used to insufflate the intra- abdominal cavity. Upon inspection no gross abnormalities appreciated- the uterus tubes and ovaries appeared to be normal. At this time then the LLQ and RLQ ports were placed First Marcaine was injected and small incision was made a knife and the 5 mm trocars were placed. At this time then tubes were traced back to the fimbriated ends. Ligasure was used to coagulate and ligate along mesosalpynx bilaterally until tubes removed completely. Good hemostasis was appreciated. At this time procedure was deemed complete successful. The gas was desufflated on from the intra-abdominal cavity. The trochars were removed. Skin was closed using 4-0 Monocryl in a subcutaneous fashion. Dermabond glue was placed. Instrument lap and needle counts were correct ?2. The uterine manipulator was removed. Vaginal sweep was performed it was negative. There were no complications anticipated normal postoperative course for this patient. Grafts/Implants Used: none Procedure Start Time: 09:44 Procedure Stop Time: 10:17 Complications none Admit VTE Documentation VTE Present on Admission: Yes VTE Mechan Device Prophylaxis: SCD's VTE Pharm Prophylaxis ordered?: No Reason prophylaxis not ordered:: Procedure Not Indicated
--- NOTE | 2021-02-26 10:23 | EX.PCM.DISCH ---
Discharge Instructions Procedure Other Diet Discharge Diet: No restrictions Activity May resume sexual activity in: 2 weeks Lifting Restrictions: 20-25 lbs Dressing / Incision Call your doctor if your incision/area has: Continuous Slow Oozing, Sudden Increased Bleeding, Increased Pain/ Swelling, Increased Redness, Foul Smelling Discharge and Swelling at the incision site Call your doctor if you observe: Fever of 101 or Higher, Inability to urinate, Inability to have a bowel movement, Using more than 1 pad per hour and Uncontrolled pain Additional Dressing/Incision Instructions:: You have skin glue over your incision sites, do not pick off. You may shower and let the soap and water run over the incision sites and dab dry. Follow Up Care Please Follow Up With: Marilee Lemus MD When: 1-2 weeks post OP if you need an appointment please call [phone] Test Results: Test results from this visit will be discussed in further detail at your follow-up appointment, if applicable. Discharge Plan Admission Attending Provider: Marilee Lemus Primary Care Provider: Cheryl Maguire Discharge Orders/Prescriptions Prescriptions: No Action magnesium 200 mg tablet 325 mg PO QHS RF: 0 ascorbic acid (vitamin C) 500 mg capsule 500 mg PO DAILY RF: 0 epinephrine 0.3 MG syringe 0.3 mg PRN PRN (Reason: Anaphylaxis) RF: 0 Albuterol Aerosols 2 puff PO PRN PRN (Reason: asthma) RF: 0 vit,[id number] 1 TABLET tablet 1 tab PO DAILY RF: 0 L.acidoph, paracasei,B. lactis 1 EACH capsule 1 ea PO DAILY RF: 0 fexofenadine 180 MG tablet 180 mg PO BID RF: 0 albuterol sulfate 1 INHALER inhaler 1 - 2 puff inhalation Q4H PRN PRN (Reason: Sob &/Or Wheezing) RF: 0 famotidine [Pepcid] 20 mg Tablet 20 mg PO DAILY RF: 0 norethindrone acetate 5 mg Tablet 5 mg PO TID RF: 0 Disposition Discharge Orders: Discharge Patient (Routine); Ordered 02/26/21 Ordered By: Dr. Marilee Lemus
[2021-02-26 10:32] VITALS: BP 102/57; BP 130/75; PULSE 93; RESP 16; TEMP 36.2; O2SAT 94
[2021-02-26 10:45] VITALS: BP 106/57; BP 130/75; PULSE 84; RESP 16; O2SAT 95
[2021-02-26 11:00] VITALS: BP 106/50; BP 130/75; PULSE 81; RESP 16; TEMP 36.2; O2SAT 96
[2021-02-26 12:05] VITALS: BP 115/60; BP 130/75; PULSE 88; RESP 18; TEMP 36.7; O2SAT 99
== END 2021-02-26 12:20 | disposition home or self-care (01) ==
LOC: SDC 07:58 → AC 08:00
PROVIDERS: Anesthesiology; PCP Internal Medicine; Referring Provider Obstetrics & Gynecology; Visit Provider Obstetrics & Gynecology
PROC: 0U5B8ZZ Destruction of Endometrium, Via Natural or Artificial Opening Endoscopic (ICD-10-PCS; CPT 58558; principal; 2021-02-26 09:00)
PROC: (CPT 58661; 2021-02-26 09:00)
DX: N85.01 Benign endometrial hyperplasia (principal); Z30.2 Encounter for sterilization; N93.9 Abnormal uterine and vaginal bleeding, unspecified; N83.8 Other noninflammatory disorders of ovary, fallopian tube and broad ligament; Z79.899 Other long term (current) drug therapy; Z87.891 Personal history of nicotine dependence; Q51.28 Other and unspecified doubling of uterus
CPT/HCPCS: 58558; 58661; 81025; 85027; 88302; 88305; J7120; C1760; J2405

== ENCOUNTER 2021-04-09 05:28 | Day surgery (SDC) | payer MEDICAID, SELFPAY ==
--- NOTE | 2021-04-07 12:57 | PCM.HP.BLA ---
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 Signed Encounter Date: 04/07/2021 Expand AllCollapse All Expand All by Default Hide copied text Hover for details Pre-Op History and Physical ? HPI: The patient is a 45 year old female presenting for discussion regarding surgical management for abnormal uterine bleeding. Patient underwent laparoscopic bilateral salpingectomy with attempted endometrial ablation. On hysteroscopy was noted that the patient still has a uterine septum and unable to perform ablation or use Mirena IUD. At that time D&C was performed- pathology came back as Hyperplasia w/o atypia. Postoperatively continued Aygestin therapy but in the meantime started having breakthrough bleeding and significant headaches with it. Patient would like to proceed with definitive management with hysterectomy at this time. ? She is scheduled for TLH, Cystoscopy, for AUB, Endometrial Hyperplasia, Uterine anomaly on 04/09/21. Procedure discussed along with risks, benefits and complications. Other alternatives discussed for management. Consent form signed? Yes. ? ? PAST MEDICAL HISTORY PAST MEDICAL HISTORY Diagnosis Date ? Anemia ? ? anxiety ? ? Asthma ? ? mild ? Benign endometrial hyperplasia ? ? Complication of anesthesia ? ? Avoids narcotics - became unresponsive once morphine given ? Fibroids ? ? History of blood transfusion ? ? Infertility, female ? ? Needed IUI and clomid to conceive first child ? Mitral valve prolapse ? ? Urticaria pigmentosa ? ? ? PAST SURGICAL HISTORY PAST SURGICAL HISTORY Procedure Laterality Date ? APPENDECTOMY HX ? ? ? SNGL ? 01/06/2014 ? LTCS, double layer closure ? D&C, DIAG AND/OR THERAPEUTIC ? 02/26/2021 ? polypectomy, BENIGN ENDOMETRIAL HYPERPLASIA, septum ? HYSTEROSCOPY ? ? ? x 4 others, one was 2 hrs w/ 5 liters of fluid used ? HYSTEROSCOPY; INTRAUT SEPTUM ? 01/05/2012 ? op report- myosure resection of septum and fibroid, no mention of entry into myometrium ? SALPINGECTOMY Bilateral 02/26/2021 ? laparoscopic ? TONSILLECTOMY HX ? CURRENT MEDICATIONS Current Outpatient Medications Medication Sig Dispense Refill ? norethindrone (AYGESTIN) 5 mg tablet Take 1 tablet by mouth once daily. 30 tablet 5 ? albuterol HFA (PROVENTIL HFA, VENTOLIN HFA) 90 mcg/actuation inhaler Inhale 2 Puffs as instructed every 4 hours as needed (for wheezing and shortness of breath). 18 g 0 ? mupirocin (CHICHI CANTU) Apply 1 Each to affected area as directed. (Patient not taking: Reported on 01/05/2021 ) 1 Tube 0 ? sertraline (ZOLOFT) 50 mg tablet Take 1 tablet by mouth once daily. Take 1/2 tab for 6 days then increase to 1 tab. 30 tablet 11 ? ferrous sulfate 220 mg (44 mg iron)/5 mL solution Take 5 mL by mouth once daily. 60 mL 1 ? iron ps cmplx-vitamin D3 (NOVAFERRUM 125) 125 mg iron- 100 unit/5 mL liqd Take 5 mL by mouth every other day. 1 Bottle 0 ? ranitidine (ZANTAC) 150 mg tablet Take 150 mg by mouth twice daily. ? ? ? cetirizine (ZYRTEC) 10 mg tablet Take 10 mg by mouth once daily. ? ? ? pyridoxine HCl, vitamin B6, (VITAMIN B-6 ORAL) Take by mouth. (Patient not taking: Reported on 01/05/2021 ) ? ? ? EPINEPHrine (EPIPEN) 0.3 mg/0.3 mL auto-injector Inject 0.3 mg subcutaneously as needed. ? CALCIUM CARB/MAGNESIUM OXID/D3 (CALCIUM MAGNESIUM + D ORAL) Take 1 tablet by mouth once daily. ? ? ? LACTOBACILLUS ACIDOPHILUS (PROBIOTIC ORAL) Take 1 tablet by mouth once daily. ? ? ? VIT/IRON FUM/FOLIC AC ( TABLET ORAL) Take 1 tablet by mouth once daily. ? ? ? No current facility-administered medications for this visit. ? ? ALLERGIES: Celebrex [Celecoxib], Latex, Morphine, Narcotics [Opioids - Morphine Analogues], and Seasonal Allergies ? PERSONAL HISTORY: SOCIAL HISTORY Social History ? Tobacco Use ? Smoking status: Former Smoker ? ? Types: Cigarettes ? ? Quit date: 10/11/2002 ? ? Years since quittin.5 ? Smokeless tobacco: Never Used ? Tobacco comment: Smoked one pack a week x 8 years. Substance Use Topics ? Alcohol use: No ? Drug use: No ? FAMILY HISTORY: FAMILY HISTORY FAMILY HISTORY Problem Relation Age of Onset ? Arthritis Mother ? ? Skin Cancer Mother ? ? Heart Mother ? ? Skin Cancer Sister ? ? No Known Problems Father ? ? Arthritis Maternal Grandmother ? ? Hypertension Maternal Grandmother ? ? Heart Maternal Grandfather ? ? Arthritis Paternal Grandmother ? ? Cancer Paternal Grandmother ? ? Aneurysm Paternal Grandfather ? ? Allergies Daughter ? ? ? REVIEW OF SYMPTOMS: negative except as noted above PHYSICAL EXAMINATION: ? VITALS: Last menstrual period 12/24/2020, currently . ? GENERAL: The patient is well nourished, well hydrated in no acute distress. , The patient is oriented to time, place, and person. NECK: full range of motion LUNGS: Clear to auscultation bilaterally. no wheezes, rhonchi or rales HEART: Regular rate and rhythm and Normal heart sounds ? IMPRESSION: AUB, Endoemtrial hyperplasia, Uterine anomaly ? PLAN: TLH, Cystoscopy ? Pt has been counseled on risks/benefits and alternatives of surgery including but not limited to anesthesia, bleeding, infection, injury to pelvic structures including bowel, bladder, ureters and vessels. Pt wishes to proceed with surgery at this time. ? COVID VACCINATED ? PRE AND POST OP INSTRUCTIONS reviewed ERAS protocol reviewed POST OP MEDS GIVEN - reviewed allergies with patient- percocet- pt reports can take as well as motrin. Celebrex reviewed- not allergy- intermittent intolerance. ? I have reviewed and updated past medical and surgical history, medications and allergies Marilee Tsang MD ?9:29 AM Office Visit on 04/07/2021 Office Visit on 04/07/2021 Note shared with patient
[2021-04-09] VITALS (9 sets, daily range): BP systolic 102–124; BP diastolic 56–74; PULSE 75–99; RESP 16–20; TEMP 36.2–37; O2SAT 96–100; BMI 29.0
[2021-04-09 06:19] LABS: Internal QC Validated? YES +Cl - CLEAR BKGD; Pregnancy, Urine Negative Negative
[2021-04-09] MEDS: Phenazopyridine 95 MG Tablet 190 MG PO (06:53)
[2021-04-09] MEDS: Gabapentin 600 MG Tablet PO (06:53)
[2021-04-09] MEDS: Acetaminophen 500 MG Tablet 1000 MG PO (06:53)
[2021-04-09] MEDS: Scopolamine 1mg/72hr Patch 1 PATCH TD (06:54)
[2021-04-09] MEDS: Celecoxib 200 MG Capsule 400 MG PO (06:54)
[2021-04-09] MEDS: Enoxaparin 40 MG/0.4 ML Syringe SC (06:56)
[2021-04-09] MEDS: Lactated Ringers 1,000 ML 40 ML IV (06:59)
[2021-04-09] MEDS: dexAMETHasone 10 MG/ML Vial 8 MG IV (06:59)
[2021-04-09 07:01] LABS: Hemoglobin 12.5 g/dL (12.0-15.0); Mean Corp Hgb Conc 32.1 g/dL (32-36); Mean Corpuscular Hgb 31.8 pg (27.0-32.0); Mean Corpuscular Volume 99.2 fL (81-99); Mean Platelet Vol. 10.2 fl (6.2-12.0); Platelet Count 283 K/mm3 (150-450); RBC Distribution Width CV 12.8 % (11.6-14.6); Red Blood Count 3.93 M/mm3 (4.2-5.4); White Blood Count 8.2 K/mm3 (4.4-11.0)
[2021-04-09 07:12] LABS: Magnesium 2.2 mg/dL (1.6-2.6)
--- NOTE | 2021-04-09 07:27 | OP.PCM_ITS ---
Problems Associated Problem List Diagnoses (1) Endometrial hyperplasia: (2) Abnormal uterine bleeding (AUB): (3) Uterine anomaly: (4) Septate uterus: Report of Operation Date of Procedure: 04/09/21 Pre-Operative Diagnosis: AUB, endometrial hyperplasia, Uterine anomaly, Septate uterus Post-Operative Diagnosis: same , suspect adenomyosis Surgery/Procedure Performed:: TLH, Cystoscopy Surgeon: Marilee Lemus Assistant: Daphne Ramon Type of Anesthesia: General Special Medications: 0.5% maracaine Specimen's removed: uterus, cervix Drains: none Estimated Blood Loss (mL): 50 Fluids Replaced: 700 Description of Procedure: Patient take to OR and prepped and draped in usual sterile fashion in dorsal lithotomy position with her arms tucked in a neurologically safe and neutral position. The uterus sounded to 10.5 cm. The detective narcotics and vice uterine manipulator was placed and aguirre were placed. Attention was turned to the abdomen. All port sites were infiltrated with 0.5% marcaine before the incisions were made. The anterior abdominal wall was tented up with towel clamps and using a direct visualization entry approach a 5 mm intraumbilical port was placed. Intraperitoneal placement was confirmed with the laparoscope and the pneumoperitoneum was created. The patient was placed in Trendelenburg and 5 mm right and left lower quadrant ports were placed under direct visualization. The Infraumbilical incision was removed and replaced supraumbilically for better visualization. Air seal rapid insufflator was used. The bowel was swept away. Ovaries appeared normal. previous salpingectomy appreciated. The uteroovarian ligaments were clamped, sealed and ligated. round ligaments were divided. The anterior peritoneum was dissected down to create the bladder flap with blunt dissection and the LigaSure. The uterine arteries were isolated, clamped, sealed and cut. There was minimal back bleeding from the uterus. Straight bites on uterine arteries performed to drop them off the cuff. The manipulator was used as guide to create colpotomy using monopolar tip of ligasure. once specimen was removed attention was turned to vaginal portion. The specimen was handed off. The cuff was closed with interrupted 0-vicryl figure of 8 sutures. Cystoscopy was performed bilateral ureters were visualized with good efflux. bladder was intact. aguirre replaced and sponge stick placed in vagina. The pneumoperitoneum was recreated and the cuff and pedicles were hemostatic. Good was placed over cuff and pedicles. The skin incisions were closed with skin glue and 3-0 monocryl in the LLQ port site. The vaginal sweep was completed by me. Grafts/Implants Used: none bookkeeper assistant help to hold camera, manipulate uterus and retract for cuff closure. Grafts/Implants Used: none Procedure Start Time: 07:51 Procedure Stop Time: 09:03 Complications none Admit VTE Documentation VTE Present on Admission: Yes VTE Mechan Device Prophylaxis: SCD's VTE Pharm Prophylaxis ordered?: Yes
--- NOTE | 2021-04-09 07:30 | HYST_PTH ---
PATIENT: SOFIE SIEGEL LOC: [facility] [place] U#:[id number] AGE/SX: 45/F ROOM: RE04/09/[address]: Dr. Marilee Lemus, MDDOB: 1975 BED: DIS: 04/09/2021 SPEC #: [id number] RECD: 04/09/21 10:43 STATUS: JAMARI REHomer #: [id number] CHICO: 04/09/21 07:[address]: Marilee Lemus DEPT: SURGICAL PATHOLOGY RECD BY: Kianna Olmedo ENTERED: 04/09/21 12:46 SP TYPE: HYSTERECT OTHR DR: Dr. Cheryl Maguire DO Tissues: Uterus, NOS Procedures: Decalcification bone/plaque Surgery Specimen Level V HEADER OPERATION: ERAS, hysterectomy, TLH, cystoscopy PRE-OP DIAGNOSIS: Endometrial hyperplasia, uterine septum, abnormal uterine bleeding TISSUE SUBMITTED: Uterus and cervix MICROSCOPIC DIAGNOSIS Uterus, hysterectomy: Cervix ? minimal chronic inflammation. Endometrium ? late secretory endometrium. Myometrium ? leiomyomas and adenomyosis. AM:richard 04/10/2021 COMMENT Case has been reviewed in consultation with Dr. De La Cruz who concurs with the above diagnosis. IDC:SJ MICROSCOPIC DESCRIPTION Slides are reviewed. GROSS DESCRIPTION Received in fixative is one container labeled with the patient's name and designated uterus and cervix. The specimen consists of a hysterectomy specimen consisting of uterus with cervix and weighing 222 gm and measuring 11.5 x 10 x 6 cm. The serosal surface is focally ragged. Multiple subserosal nodules are noted. The ectocervical mucosa is unremarkable. The external os is oval in contour. The endocervical canal measures 4 cm in length and the endocervical mucosa is unremarkable. The triangular endometrial cavity measures 5 cm in length and up to 3.5 cm in width. No distinct uterine septum is noted. The endometrium is mandujano, glistening without any mass lesion and measures 0.1 cm in thickness. Sections of the uterine wall reveal multiple intramural and subserosal nodular masses. The largest mass measures 3 cm in greatest dimension. Sections of this mass reveal extensive calcified cut surfaces. Sections of the rest of the nodular mass reveal multiple nodules. Sections of these masses reveal mandujano whorled cut surfaces without areas of hemorrhage, necrosis or cystic degeneration. The uterine wall measures up to 3 cm in thickness. Telecommunications Operator sections are submitted in 12 cassettes as follows: 1 - anterior cervix, 2?- posterior cervix, 3-5 - anterior uterine wall, 6-8 - posterior uterine wall. Almost the entire endometrium is submitted. 9 & 10 - smaller and intermediate nodular masses, 11 & 12 - largest nodular mass with calcified area, submitted after decalcification. / SJ:richard 04/09/21 TC:5 CPT: 62365, 21895
[2021-04-09] MEDS: Cefazolin 2 GM in 0.9% Normal Saline 100 ML IV (07:46)
[2021-04-09 08:26] LABS: Bedside Glucose 84 mg/dL (70-110)
[2021-04-09] MEDS: Ondansetron 4 MG/2 ML Vial IV (09:00)
--- NOTE | 2021-04-09 09:05 | EX.PCM.DISCH ---
Discharge Instructions Diet Discharge Diet: No restrictions Activity Discharge Activity: May Not Drive (while taking narcotics. may drive when pain controlled. ) and May Shower Return to work on:: 03/12/21 May shower in (days): 1 May resume sexual activity in: 6-8 weeks Weight Bearing Status: Full weight bearing Lifting Restrictions: 20 Additional Activity Instructions:: NOTHING IN THE VAGINA x 6-8 weeks. Dressing / Incision Call your doctor if your incision/area has: Continuous Slow Oozing, Sudden Increased Bleeding, Increased Pain/ Swelling, Increased Redness, Foul Smelling Discharge and Swelling at the incision site Call your doctor if you observe: Fever of 101 or Higher, Inability to have a bowel movement, Using more than 1 pad per hour and Uncontrolled pain Change Dressing in: leave in place till F/U (you have skin glue over incision sites- do not pick off) Cleanse incision/area with: Soap & Water, Keep Dressing Clean & Dry and - (you may let soap and water run over incision sites and dab dry. ) Follow Up Care Please Follow Up With: Marilee Lemus MD When: 2 weeks as scheduled for post op visit Test Results: Test results from this visit will be discussed in further detail at your follow-up appointment, if applicable. Discharge Plan Admission Attending Provider: Marilee Lemus Primary Care Provider: Cheryl Maguire Discharge Orders/Prescriptions Prescriptions: No Action magnesium 200 mg tablet 325 mg PO QHS RF: 0 epinephrine 0.3 MG syringe 0.3 mg IM PRN PRN (Reason: Anaphylaxis) RF: 0 Albuterol Aerosols 2 puff PO PRN PRN (Reason: asthma) RF: 0 vit,[id number] 1 TABLET tablet 3 tab PO DAILY RF: 0 L.acidoph, paracasei,B. lactis 1 EACH capsule 1 ea PO DAILY RF: 0 fexofenadine 180 MG tablet 180 mg PO BID RF: 0 albuterol sulfate 1 INHALER inhaler 1 - 2 puff inhalation Q4H PRN PRN (Reason: Sob &/Or Wheezing) RF: 0 famotidine [Pepcid] 20 mg Tablet 20 mg PO DAILY RF: 0 norethindrone acetate 5 mg Tablet 2.5 mg PO BID RF: 0 ferrous sulfate 27 mg iron Tablet 27 mg PO DAILY RF: 0 d-mannose 500 mg Capsule 500 mg PO DAILY RF: 0 Referrals / Follow Up: Cheryl Maguire DO [Primary Care Provider] - Disposition Disposition (needs filled in before D/C Order can be placed): Home, Self Care
[2021-04-09 12:15] LABS: Hematocrit 38.6 % (37-47); Hemoglobin 12.7 g/dL (12.0-15.0); Mean Corp Hgb Conc 32.9 g/dL (32-36); Mean Corpuscular Hgb 32.6 pg (27.0-32.0); Mean Corpuscular Volume 99.2 fL (81-99); Mean Platelet Vol. 10.3 fl (6.2-12.0); Platelet Count 273 K/mm3 (150-450); RBC Distribution Width CV 12.9 % (11.6-14.6); RBC Distribution Width SD 46.6 fl (35.1-43.9); Red Blood Count 3.89 M/mm3 (4.2-5.4); White Blood Count 17.8 K/mm3 (4.4-11.0)
[2021-04-09] MEDS: HYDROcodone Bitartrate/Apap 5/325 Tablet PO (14:00)
== END 2021-04-09 14:37 | disposition home or self-care (01) ==
LOC: SDC 05:28 → AC 05:30
PROVIDERS: Anesthesiology; PCP Internal Medicine; Referring Provider Obstetrics & Gynecology; Visit Provider Obstetrics & Gynecology
PROC: 0UT94ZZ Resection of Uterus, Percutaneous Endoscopic Approach (ICD-10-PCS; CPT 58570; principal; 2021-04-09 07:10)
DX: N85.00 Endometrial hyperplasia, unspecified (principal); Q51.9 Congenital malformation of uterus and cervix, unspecified; J45.909 Unspecified asthma, uncomplicated; D64.9 Anemia, unspecified; F41.9 Anxiety disorder, unspecified; Z79.899 Other long term (current) drug therapy; Z87.891 Personal history of nicotine dependence
CPT/HCPCS: 58570; 81025; 82962; 83735; 85027; 86850; 86900; 86901; 88307; 88311; J7120; J2405

== ENCOUNTER 2021-09-14 06:21 | Outpatient (CLI) | payer OTHER, MEDICAID, SELFPAY ==
--- NOTE | 2021-09-14 06:30 | ECHOD_ITS ---
Reason For Study: CHEST PAIN Procedure This was a 2D Doppler, Color Flow transthoracic echocardiogram. Exam performed in department. Left Ventricle Normal LV size. Left ventricular systolic function is normal. The estimated ejection fraction is 60 %. Stage 1 diastolic dysfunction. No regional wall motion abnormalities noted. Right Ventricle Normal RV size. Normal systolic function. Atria Normal left atrium. Normal right atrium. Mitral Valve Posterior leaflet mitral valve prolapse. Mild (1+) eccentric mitral valve insufficiency. Tricuspid Valve Normal tricuspid valve. Aortic Valve Trisinus/trileaflet aortic valve. Pulmonic Valve Normal pulmonic valve. Great Vessels Normal aortic root. The pulmonary artery is normal size. Normal inferior vena cava. Pericardium/Pleural No pericardial effusion. MMode/2D Measurements & Calculations LVIDd: 4.8 cm IVSd: 0.67 cm Ao root diam: 3.0 cm LVIDs: 3.2 cm LVPWd: 0.72 cm RVDd: 3.4 cm FS: 32.9 % LAV(MOD-bp): 43.7 ml LVAd ap4: 26.4 cm2 LVAd ap2: 25.0 cm2 LAV(MOD-bp) Indexed: 23.7 ml/m2 LVLd ap4: 7.7 cm LVLd ap2: 7.8 cm LAV(MOD-sp2): 43.0 ml EDV(MOD-sp4): 75.0 ml EDV(MOD-sp2): 67.0 ml LAV(MOD-sp4): 44.2 ml EDV(sp4-el): 76.9 ml EDV(sp2-el): 68.0 ml LVAs ap4: 14.3 cm2 LVAs ap2: 14.4 cm2 LVLs ap4: 6.3 cm LVLs ap2: 6.2 cm ESV(MOD-sp4): 27.4 ml ESV(MOD-sp2): 27.8 ml ESV(sp4-el): 27.8 ml ESV(sp2-el): 28.4 ml EF(MOD-sp4): 63.4 % EF(MOD-sp2): 58.4 % EF(sp4-el): 63.9 % SV(MOD-sp4): 47.6 ml SV(MOD-sp2): 39.1 ml SV(sp4-el): 49.1 ml LA dimension(2D): 3.0 cm LA A4 area: 17.2 cm2 RA A4 area: 17.5 cm2 Doppler Measurements & Calculations MV E max devan: 61.3 cm/sec Lat Peak E' Devan: 13.0 cm/sec Med Peak E' Devan: 7.6 cm/sec MV A max devan: 74.5 cm/sec E/E' lat: 4.7 E/E' med: 8.0 MV E/A: 0.82 Ao V2 max: 140.3 cm/sec LV V1 max: 144.0 cm/sec PA V2 max: 96.1 cm/sec Ao max P.9 mmHg LV V1 max P.3 mmHg TR max devan: 222.2 cm/sec TR max P.8 mmHg ECHO/Echo Complete Interpretation Summary Normal LV size. Left ventricular systolic function is normal. The estimated ejection fraction is 60 %. Stage 1 diastolic dysfunction. Posterior leaflet mitral valve prolapse. Mild (1+) eccentric mitral valve insufficiency. Ordering Physician: Cheryl Maguire Referring Physician: Cheryl Maguire Performed By: Lyla Yarbrough, ULYSSES, RVT
--- NOTE | 2021-09-14 17:44 | STRESSREP ---
Stress Test Report Exercise myocardial perfusion stress test. 45-year-old lady with a history of chest pain. Stress protocol: Resting EKG demonstrates normal sinus rhythm with a rate of 80 bpm normal intervals are noted resting blood pressure is 122/70 mmHg. The patient exercised according to regular Neville protocol for total duration of 5 minutes and 30 seconds. Patient completed 2 minutes and 30 seconds of stage II of the Neville protocol the maximum heart rate attained was 162 bpm which was 92% of max impact at heart rate the maximum workload was 7 metabolic equivalents. Patient maintained sinus rhythm throughout the recording with 2 episodes of ventricular couplet activity. During recovery there were frequent premature ventricular complexes noted appear to have an inferior axis. At rest there were no ST or T wave changes noted to suggest ischemia. The test was terminated due to dyspnea. The peak blood pressure was 140/70 mmHg. With a rate-pressure product of 22,680. Myocardial perfusion protocol. 11.1 mCi of technetium 99m sestamibi was injected at rest. The patient exercised according to regular Neville protocol for total duration of 5-1/2 minutes and at peak exercise 32.6 mCi of technetium 99m sestamibi was injected stress images were obtained stress and rest images were reconstructed and compared in the short axis vertical long and horizontal long axis. Gated images were also obtained per Perfusion SPECT analysis: Review of the stress images demonstrate normal uptake of tracer noted in all areas of the myocardium. The resting images similarly demonstrate normal uptake of tracer noted in all areas of the myocardium. No areas of reversibility are noted to suggest ischemia and no previous infarct is noted. Gated SPECT analysis: The gated ejection fraction is 76%. Conclusion: Normal exercise myocardial perfusion stress test at a moderate workload. Preserved ejection fraction.
== END 2021-09-14 23:59 | disposition short-term general hospital (02) ==
LOC: CVS 06:24
PROVIDERS: PCP Internal Medicine; Referring Provider Internal Medicine; Visit Provider Internal Medicine
DX: R07.9 Chest pain, unspecified (principal)
CPT/HCPCS: 78452; 93017; 93306; A9500; A4216

== ENCOUNTER 2021-11-20 14:52 | Outpatient (CLI) | payer OTHER, MEDICAID, SELFPAY ==
[2021-11-20 16:15] LABS: Absolute Lymphocyte Count 1.61 X10^3/uL (0.83-4.51); Absolute Neutrophil Count 7.6 X10^3/uL (2.0-7.7); Basophil# 0.03 X10^3/uL; Basophil% 0.3 % (0-1); Eosinophil# 0.06 X10^3/uL; Eosinophils% 0.6 % (0-5); Hemoglobin 13.3 g/dL (12.0-15.0); Lymphocyte # 1.61 X10^3/ul (0.83-4.51); Lymphocyte % 16.3 % (19-41); Mean Corp Hgb Conc 33.3 g/dL (32-36); Mean Corpuscular Hgb 32.5 pg (27.0-32.0); Mean Corpuscular Volume 97.8 fL (81-99); Mean Platelet Vol. 10.4 fl (6.2-12.0); Monocyte# 0.57 X10^3/uL; Monocyte% 5.8 % (0-10); NRBC Flagged by Analyzer 0 % (0-5); Neutrophil # 7.57 X10^3/uL (2.7-7.7); Neutrophil % 76.7 % (47-70); Platelet Count 278 K/mm3 (150-450); RBC Distribution Width CV 12.3 % (11.6-14.6); RBC Distribution Width SD 44.1 fl (35.1-43.9); Red Blood Count 4.09 M/mm3 (4.2-5.4); White Blood Count 9.9 K/mm3 (4.4-11.0)
== END 2021-11-20 23:59 | disposition home or self-care (01) ==
LOC: LAB 14:55
PROVIDERS: PCP Internal Medicine; Visit Provider Dermatology
DX: D47.01 Cutaneous mastocytosis (principal); D22.5 Melanocytic nevi of trunk; L82.1 Other seborrheic keratosis; D18.01 Hemangioma of skin and subcutaneous tissue; Z71.89 Other specified counseling; Z80.8 Family history of malignant neoplasm of other organs or systems
CPT/HCPCS: 36415; 83520; 85025

== ENCOUNTER 2021-11-28 11:27 | Day surgery (SDC) | payer OTHER, MEDICAID, SELFPAY ==
[2021-11-28] VITALS (7 sets, daily range): BP systolic 95–130; BP diastolic 49–76; PULSE 99–138; RESP 16–18; TEMP 36.8–37.9; O2SAT 92–100; BMI 28.7
--- NOTE | 2021-11-28 11:49 | CT_ITS ---
EXAM: CT ABDOMEN AND PELVIS WITH INTRAVENOUS CONTRAST CLINICAL INDICATION: Rectal area pain.? Abscess. TECHNIQUE: Helically acquired images were obtained of the abdomen and pelvis with intravenous contrast. This CT exam was performed using one or more of the following dose reduction techniques: automated exposure control, adjustment of the mA and/or kV according to patient size, and/or use of iterative reconstruction technique. This report was created using flipClass report generation technology. CONTRAST: Oral and amp; IV Gastrografin and amp; 100mL Isovue-370 COMPARISON: None. FINDINGS: LOWER THORAX: Unremarkable. Lung bases are clear. No cardiomegaly. No significant pericardial effusion. ABDOMEN: LIVER: Unremarkable. Homogeneous. No focal mass. GALLBLADDER AND BILE DUCTS: Unremarkable. No calcified gallstones. No gallbladder distention or wall edema. No intra- or extrahepatic biliary ductal dilation. PANCREAS: Unremarkable. No focal cystic or solid mass. SPLEEN: Unremarkable. Normal size without focal cystic or solid mass. ADRENALS: Unremarkable. No nodules. KIDNEYS AND URETERS: Unremarkable. Normal renal size and position. No hydronephrosis. STOMACH AND BOWEL: Unremarkable. No stomach or bowel distention. No focal inflammatory change. PELVIS: APPENDIX: Normal. BLADDER: Unremarkable. REPRODUCTIVE: Unremarkable as visualized. No mass. ABDOMEN and PELVIS: INTRAPERITONEAL SPACE: Unremarkable. No ascites or other fluid collection. No free air. BONES/JOINTS: Unremarkable. No suspicious lytic or blastic abnormality. SOFT TISSUES: 5.0 x 5.0 x 1.8 cm rim-enhancing perianal abscess. No discrete abdominal or pelvic wall hernia. VASCULATURE: Unremarkable. Abdominal aorta is non-dilated. LYMPH NODES: Unremarkable. No enlarged lymph nodes. CT/Abdomen/Pelvis WITH Contrast IMPRESSION: 5 x 5 x 1.8 cm rim-enhancing perianal abscess. Electronically Signed: Dawson Weaver MD at 14:58 EDT ,
--- NOTE | 2021-11-28 11:54 | EX.ED.DYSGE1 ---
HPI History of Present Illness Chief Complaint: Other, Pain/Inj Informant: patient Narrative Narrative: Patient complains of rectal pain concerning for hemorrhoid. She states it started to hurt about a week ago but is gotten slowly worse. She does state that there is a red area that is tender and most of the pain is toward the left side of her rectum and buttock. She states she is actually developed some nausea but no vomiting. She has not been eating much because of the nausea. She is also had fevers up to 101. She has been taking Tylenol for the pain that helps but does not relieve it. It seems to be getting slowly worse. Nothing makes it better. No trauma. Patient has no history of immunosuppression or Crohn's ulcerative colitis or symptoms like that. No diabetes. No polyuria or polydipsia. She has had appendectomy, hysterectomy and salpingectomy. [facility] Medical History Allergic contact urticaria Anemia Asthma Chest pain on respiration Cutaneous mastocytosis Dietary restriction Fatigue Former smoker Frequent headaches Hay fever Heart disease History of Helicobacter pylori infection History of hemorrhoids History of irregular heartbeat History of ulceration Hx of echocardiogram Injury of head and neck Knee pain Limb weakness Mastocytosis Rectal abscess SOB (shortness of breath) Wears glasses Home Medications Albuterol Aerosols 2 puff PO PRN PRN 09/04/18 [History Last Taken 2 Months Ago ~07/06/18] L.acidoph, paracasei,B. lactis 1 ea PO DAILY 09/04/18 [History Last Taken 09/04/18 09:00] epinephrine 0.3 mg IM PRN PRN 09/04/18 [History Last Taken Unknown] vit,[id number] 3 tab PO DAILY 09/04/18 [History Last Taken 09/04/18 09:00] albuterol sulfate 1 - 2 puff INHALATION Q4H PRN PRN 06/21/19 [History Last Taken Unknown] magnesium 200 mg tablet 325 mg PO QHS 09/17/19 [History Last Taken Unknown] famotidine [Pepcid] 20 mg PO DAILY 02/19/21 [History Last Taken Unknown] d-mannose 500 mg PO DAILY 04/06/21 [History Last Taken Unknown] amoxicillin-pot clavulanate [Augmentin] 1 tab PO Q8H 5 Days #15 tab 11/28/21 [Rx Last Taken Unknown] tramadol 50 mg PO Q8H PRN #10 tab 11/28/21 [Rx Last Taken Unknown] Allergy/AdvReac Type Severity Reaction Status Date / Time latex Allergy Other Verified 11/28/21 11:29 morphine Allergy Anaphylaxis Verified 11/28/21 11:29 NSAIDS (Non-Steroidal Allergy Hives Verified 11/28/21 11:29 Anti-Inflamma celecoxib [From Celebrex] AdvReac Other Verified 11/28/21 11:29 food dye Allergy Hives Uncoded 11/28/21 11:29 NARCOTICS AdvReac HYPERSENSTIVE Uncoded 11/28/21 11:29 TO NARCOTICS Surgical History H/O bilateral salpingectomy History of History of hysteroscopy History of tonsillectomy and adenoidectomy Hx of appendectomy Social History Smoking Status: Former smoker ROS ROS ED Constitutional Constitutional ED: Reports chills and fever(s) ENT ENT ED: Denies rhinorrhea Cardiovascular Cardiovascular: Denies chest pain or palpitations Respiratory/Chest Respiratory/Chest: Denies dyspnea Gastrointestinal Gastrointestinal: Reports nausea and other Details: See history of present illness ; Denies abdominal pain, constipation, diarrhea, melena or vomiting Genitourinary Genitourinary ED: Denies dysuria or hematuria Musculoskeletal Musculoskeletal: Reports myalgias Integumentary Denies rash Neurologic Neurologic: Denies headache(s) Endocrine Endocrinology: Denies polydipsia or polyuria Allergic/Immunologic Allergic/Immunologic ED: Denies urticaria EXAM Physical Exam Const Vital Signs: 11/28/21 11:29 11/28/21 14:26 Temperature 98.4 F 98.3 F Temperature Source Temporal Temporal Pulse Rate 123 H 99 Respiratory Rate 17 18 Blood Pressure 128/70 H 122/59 H Blood Pressure Mean 89 80 Pulse Ox 98 100 Oxygen Delivery Method Room Air Room Air Positive well nourished and well developed Constitutional Narrative: Patient looks mildly uncomfortable. However, she does not want much for pain. She states she is comfortable now. She would take Tylenol but did not want IV meds for pain. She is still breast-feeding her youngest child. General Appearance ED: well developed; Negative for cyanotic or diaphoretic HEENT Reports moist mucous membranes Eyes PERRL Neck no lymphadenopathy and supple Chest Wall inspection of chest normal Resp normal respiratory effort and clear to auscultation bilaterally Cardio regular rhythm; Negative for regular rate Rate: tachycardic GI normal to inspection, nondistended, normoactive bowel sounds and non-tender GI Narrative: Patient does have some small hemorrhoids that are not inflamed or red. I do not see erythema generally around the rectum or buttock. However, the entire left gluteal area is slightly firmer than her right side. Superior and lateral to the rectum on the left side there is an area of erythema and softness that is about 1 cm around. This looks like an area that could be close to draining but there is no surrounding erythema in the fullness of the buttock seems quite deep. Palpation: soft Back/Spine no CVA tenderness Extremity normal to inspection Neuro oriented x3 Sensorium / Orientation: alert Psych mental status grossly normal Skin no rashes or lesions noted Skin Narrative: See skin exam of rectal area as above MDM MDM MDM Narrative Medical decision making narrative: Patient's labs do show elevated white count at 13 6. Electrolytes are overall unremarkable. Lactate is negative. CT scan does show a 5 x 5 x 1.8 cm rim-enhancing perianal abscess. I do not think that this is an abscess that I can appropriately drained in the emergency department. I discussed case with Dr. Olga Odonnell who is on for surgery. She is coming in to evaluate the patient. Plan is to take the patient to surgery. As long as she does well, she will likely be discharged home after that. Lab Data Attestation: I reviewed the patient's lab results. Labs: Laboratory Results - last 24 hr 11/28/21 11/28/21 11/28/21 12:05 12:05 12:05 WBC 13.6 H RBC 3.82 L Hgb 12.4 Hct 37.9 MCV 99.2 H MCH 32.5 H MCHC 32.7 RDW Std Deviation 44.4 H RDW Coeff of Bruna 12.2 Plt Count 286 MPV 9.7 Immature Gran % (Auto) 0.300 Neut % (Auto) 89.1 H Lymph % (Auto) 4.6 L Garza % (Auto) 5.6 Eos % (Auto) 0.2 Baso % (Auto) 0.2 Absolute Neuts (auto) 12.1 H Absolute Lymphs (auto) 0.62 L Nucleated RBC % 0 Sodium 138 Potassium 3.8 Chloride 106 Carbon Dioxide 28.0 Anion Gap 4 L BUN 10 Creatinine 0.78 Estim Creat Clear Calc 81.96 Est GFR (MDRD) Af Amer 103 Est GFR (MDRD) Non-Af 85 BUN/Creatinine Ratio 12.9 Glucose 105 Lactic Acid 0.8 Calcium 9.4 Radiography Diagnostic Testing: Clinical Impression(s) from Imaging Studies Abdomen/Pelvis CT 11/28/21 11:49 IMPRESSION: 5 x 5 x 1.8 cm rim-enhancing perianal abscess. Electronically Signed: Dawson Weaver MD at 14:58 EDT , Discharge Plan Dx/Rx/DC Orders Clinical Impression: Abscess, perianal, Leukocytosis Disposition Disposition: Acute Care Hospital [facility] [place] [facility]
[2021-11-28] MEDS: Acetaminophen 325 MG Tablet 650 MG PO (12:15)
[2021-11-28] MEDS: Ondansetron 4 MG/2 ML Vial IV (12:15)
[2021-11-28] MEDS: 0.9% Normal Saline 1,000 ML 1000 ML IV (12:15)
[2021-11-28 12:24] LABS: Absolute Lymphocyte Count 0.62 X10^3/uL (0.83-4.51); Absolute Neutrophil Count 12.1 X10^3/uL (2.0-7.7); Basophil# 0.03 X10^3/uL; Basophil% 0.2 % (0-1); Eosinophil# 0.03 X10^3/uL; Eosinophils% 0.2 % (0-5); Hematocrit 37.9 % (37-47); Hemoglobin 12.4 g/dL (12.0-15.0); Lymphocyte # 0.62 X10^3/ul (0.83-4.51); Lymphocyte % 4.6 % (19-41); Mean Corp Hgb Conc 32.7 g/dL (32-36); Mean Corpuscular Hgb 32.5 pg (27.0-32.0); Mean Corpuscular Volume 99.2 fL (81-99); Mean Platelet Vol. 9.7 fl (6.2-12.0); Monocyte# 0.76 X10^3/uL; Monocyte% 5.6 % (0-10); NRBC Flagged by Analyzer 0 % (0-5); Neutrophil # 12.09 X10^3/uL (2.7-7.7); Neutrophil % 89.1 % (47-70); Platelet Count 286 K/mm3 (150-450); RBC Distribution Width CV 12.2 % (11.6-14.6); RBC Distribution Width SD 44.4 fl (35.1-43.9); Red Blood Count 3.82 M/mm3 (4.2-5.4); White Blood Count 13.6 K/mm3 (4.4-11.0)
[2021-11-28 12:31] LABS: Anion Gap 4 (5-15); BUN 10 mg/dL (7-18); BUN/Creat Ratio 12.9 RATIO (10-20); Calcium,Total 9.4 mg/dL (8.5-10.1); Chloride 106 mmol/L (98-107); Creatinine, Serum 0.78 mg/dL (0.55-1.02); EST Glomerular Filtration Rate 85 mL/min (>60); Est Glom Filt Rate - Afr Amer 103 mL/min (>60); Estimated Creatinine Clearance 81.96 ml/min; Glucose 105 mg/dL (74-106); Potassium 3.8 mmol/L (3.5-5.1); Sodium Level 138 mmol/L (136-145)
[2021-11-28 12:43] LABS: Lactic Acid 0.8 mmol/L (0.4-1.9)
[2021-11-28] MEDS: Ketorolac 15 MG/ML Vial IV (14:29)
--- NOTE | 2021-11-28 16:05 | HP.PCM.SX_ITS ---
HPI - General HPI Narrative SOFIE SIEGEL, is a 46 F who presents with perineal pain. This has been going on for a week. She presents to [facility] ED and found to have champ-rectal abscess. CT scan findings c/w above. Patient noted to have elevated WBC. She denies chronic constipation. She denies straining with bowel movements, she denies prolonged sitting on toilet. She has not had previous perianal/perirectal abscess. [facility] Medical History Allergic contact urticaria Anemia Asthma Chest pain on respiration Cutaneous mastocytosis Dietary restriction Fatigue Former smoker Frequent headaches Hay fever Heart disease History of Helicobacter pylori infection History of hemorrhoids History of irregular heartbeat History of ulceration Hx of echocardiogram Injury of head and neck Knee pain Limb weakness Mastocytosis Rectal abscess SOB (shortness of breath) Wears glasses Home Medications Albuterol Aerosols 2 puff PO PRN PRN 09/04/18 [History Last Taken 2 Months Ago ~07/06/18] L.acidoph, paracasei,B. lactis 1 ea PO DAILY 09/04/18 [History Last Taken 09/04/18 09:00] epinephrine 0.3 mg IM PRN PRN 09/04/18 [History Last Taken Unknown] vit,[id number] 3 tab PO DAILY 09/04/18 [History Last Taken 09/04/18 09:00] albuterol sulfate 1 - 2 puff INHALATION Q4H PRN PRN 06/21/19 [History Last Taken Unknown] magnesium 200 mg tablet 325 mg PO QHS 09/17/19 [History Last Taken Unknown] famotidine [Pepcid] 20 mg PO DAILY 02/19/21 [History Last Taken Unknown] d-mannose 500 mg PO DAILY 04/06/21 [History Last Taken Unknown] amoxicillin-pot clavulanate [Augmentin] 1 tab PO Q8H 5 Days #15 tab 11/28/21 [Rx Last Taken Unknown] tramadol 50 mg PO Q8H PRN #10 tab 11/28/21 [Rx Last Taken Unknown] Allergy/AdvReac Type Severity Reaction Status Date / Time latex Allergy Other Verified 11/28/21 11:29 morphine Allergy Anaphylaxis Verified 11/28/21 11:29 NSAIDS (Non-Steroidal Allergy Hives Verified 11/28/21 11:29 Anti-Inflamma celecoxib [From Celebrex] AdvReac Other Verified 11/28/21 11:29 food dye Allergy Hives Uncoded 11/28/21 11:29 NARCOTICS AdvReac HYPERSENSTIVE Uncoded 11/28/21 11:29 TO NARCOTICS Surgical History H/O bilateral salpingectomy History of History of hysteroscopy History of tonsillectomy and adenoidectomy Hx of appendectomy Social History Smoking Status: Former smoker ROS Constitutional Constitutional: Reports fatigue and weight loss Cardiovascular Cardiovascular: Reports chest pain Respiratory/Chest Respiratory/Chest: Reports dyspnea Gastrointestinal Gastrointestinal: Reports abdominal pain, hematochezia and other Details: has rectal pain Genitourinary Genitourinary: Denies dysuria Musculoskeletal Musculoskeletal: Denies abnormal gait Integumentary Integumentary: Denies jaundice Neurologic Neurologic: Denies dizziness Vital Signs Vital Signs Vital Signs: 11/28/21 11:29 11/28/21 14:26 Temperature 98.4 F 98.3 F Temperature Source Temporal Temporal Pulse Rate 123 H 99 Respiratory Rate 17 18 Blood Pressure 128/70 H 122/59 H Blood Pressure Mean 89 80 Pulse Ox 98 100 Oxygen Delivery Method Room Air Room Air Weight Weight: 78.2 kg Body Mass Index (BMI) 28.7 Physical Exam Const oriented x3 and no apparent distress Resp normal respiratory effort Cardio regular rate GI soft to palpation Narrative: perianal erythematous site < 1 cm, probably pointing of the abscess Extremity normal to inspection Results Lab / Micro Data Result Diagrams: 11/28/21 12:05 11/28/21 12:05 Labs: Laboratory Results - last 24 hr 11/28/21 12:05: Sodium 138, Potassium 3.8, Chloride 106, Carbon Dioxide 28.0, Anion Gap 4 L, BUN 10, Creatinine 0.78, Estim Creat Clear Calc 81.96, Est GFR (MDRD) Af Amer 103, Est GFR (MDRD) Non-Af 85, BUN/Creatinine Ratio 12.9, Glucose 105, Calcium 9.4 11/28/21 12:05: Lactic Acid 0.8 11/28/21 12:05: WBC 13.6 H, RBC 3.82 L, Hgb 12.4, Hct 37.9, MCV 99.2 H, MCH 32.5 H, MCHC 32.7, RDW Std Deviation 44.4 H, RDW Coeff of Bruna 12.2, Plt Count 286, MPV 9.7, Immature Gran % (Auto) 0.300, Neut % (Auto) 89.1 H, Lymph % (Auto) 4.6 L, Hawkins % (Auto) 5.6, Eos % (Auto) 0.2, Baso % (Auto) 0.2, Absolute Neuts (auto) 12.1 H, Absolute Lymphs (auto) 0.62 L, Nucleated RBC % 0 Radiology Impression Abdomen/Pelvis CT 11/28/21 11:49 IMPRESSION: 5 x 5 x 1.8 cm rim-enhancing perianal abscess. Electronically Signed: Dawson Weaver MD at 14:58 EDT , Assessment & Plan Assessment/Plan (1) Rectal abscess: PLAN: I have discussed above with patient. Plan: already given IV antibiotics by ED physician as well as IV toradol for pain relief Will proceed to OR for I&D of rectal abscess and placement of drain Patient can be discharged to home after with pain medications and antibiotics To follow up with me in clinic for check on drain and slow pull back removal. Patient has been counseled as to the risks of the procedure, including but not limited to: infection, bleeding, injury to any blood vessels/nerves, scar tissue , recurrence of abscess, fistula, scar tissue, etc. - she understands. She wishes to proceed. I have answered all her questions and she has no further questions.
--- NOTE | 2021-11-28 17:15 | OP.PCM_ITS ---
Report of Operation Date of Procedure: 11/28/21 Pre-Operative Diagnosis: perirectal abscess Post-Operative Diagnosis: same Surgery/Procedure Performed:: incision and drainage and placement of drain of champ-rectal abscess Surgeon: Olga Odonnell Type of Anesthesia: General Anesthesiologist: Miladys Scherer Specimen's removed: cultures of purulent drainage of perirectal abscess Drains: large monika drain in abscessed cavity - champ-rectal Estimated Blood Loss (mL): < 10 ml Fluids Replaced: 500 ml RL Description of Procedure: After informed consent was given, the patient was brought into the Operating Room. Appropriate time out protocol was followed. The patient was the placed under anesthesia by the anesthesia provider. The patient was placed in the modified lithotomy position. The patient's perineum and genitalia were then prepped with a sterile surgical preparation. Appropriate surgical drapes were placed. The skin and subcutaneous tissues at the location of the abscess were then infiltrated with local anesthetic. A finder needle was used to identify the location of the abscess. This was at the left lateral aspect. Purulent fluid was aspirated. At the needle site, an incision was made radially with a 15 blade scalpel. The abscess was not supe rficial. It was at least 2 cm deep to the surface. Blunt dissection to the abscess cavity was done and then the abscess cavity was entered. A large amount of purulent fluid emanated from the opening. This was collected for cultures. Digital examination of the abscessed cavity was done. It was noted that the cavity extended superiorly along the left rectal sidewall about 3 cm and posteriorly crossing the midline to the right posterior aspect. This was consistent with a horseshoe abscess. To improve drainage, a small incision was made on the posterior right buttock, however there was no drainage, even with deeper examination. The cavity on the left was then bluntly dissected to delineate the entire cavity - about 5 cm deep and about 4 cm extending radially from the rectum. The cavity was vigorously irrigated with hydrogen peroxide and then normal saline, no further purulent drainage was noted. A wide Monika drain was then inserted into the cavity. 15 cm of the [place] drain was positioned into the abscess cavity to drain its entirety. it was sutured exteriorly to the skin using 2-0 nylon suture at two sites. Gauze dressings were applied to the incision site and netting underwear to hold this in place. The patient tolerated the procedure well and was brought to the Recovery Room in stable condition. Complications none noted
[2021-11-28] MEDS: Bupivacaine Mpf 0.5% 30 ML VIAL (17:50)
--- NOTE | 2021-11-28 18:07 | DCINST_ITS ---
Discharge Instructions Follow Up Care Test Results: Test results from this visit will be discussed in further detail at your follow-up appointment, if applicable. Discharge Plan Admission Attending Provider: Olga Odonnell Primary Care Provider: Cheryl Maguire Instructions Additional Instructions / Restrictions: Recommended pain control regimen - May take 600 mg ibuprofen (Motrin) and then in 3-4 hours, may take 650 mg acetaminophen (Tylenol), then in 3-4 hours may take 600 mg ibuprofen, then in 3- 4 hours may take 650 mg acetaminophen and so on for 2-3 days May take narcotic pain medication for pain that is not controlled by above and at night for comfort through the night Leave drain in place. It is sutured to the skin, so for cleaning you may want to consider a Bidet type cleaning method and/or moist towelettes. You will need pads in your underwear for the drainage. May shower, do not scrub in the area of surgery. Rinse well in this area and pat dry. Do not soak - no tub baths/swimming Regular diet as tolerated, drink plenty of fluids. If you feel constipated, you can take over the counter laxatives. Please call my office for an appointment to see me on December 04, please call for a time. If any questions, please call my office at and ask the dustless operator for the general surgery nurses desk Discharge Orders/Prescriptions Prescriptions: New tramadol 50 mg tablet 50 mg PO Q8H PRN (Reason: pain) Qty: 10 RF: 0 amoxicillin-pot clavulanate [Augmentin] 500-125 mg tablet 1 tab PO Q8H 5 Days Qty: 15 RF: 0 No Action magnesium 200 mg tablet 325 mg PO QHS RF: 0 epinephrine 0.3 MG syringe 0.3 mg IM PRN PRN (Reason: Anaphylaxis) RF: 0 Albuterol Aerosols 2 puff PO PRN PRN (Reason: asthma) RF: 0 vit,[id number] 1 TABLET tablet 3 tab PO DAILY RF: 0 L.acidoph, paracasei,B. lactis 1 EACH capsule 1 ea PO DAILY RF: 0 albuterol sulfate 1 INHALER inhaler 1 - 2 puff inhalation Q4H PRN PRN (Reason: Sob &/Or Wheezing) RF: 0 famotidine [Pepcid] 20 mg Tablet 20 mg PO DAILY RF: 0 d-mannose 500 mg Capsule 500 mg PO DAILY RF: 0 Referrals / Follow Up: Cheryl Maguire DO [Primary Care Provider] - Olga Odonnell MD [STAFF PHYSICIAN] - Keep Luis F appointment Disposition Disposition (needs filled in before D/C Order can be placed): Home, Self Care
--- NOTE | 2021-11-28 19:17 | SUR.PHASEII ---
1845- DR JONI WORTHY D/C FROM PACU WITH HR IN 120-130S, PT IS IN NO PAIN, ALBUTEROL TX GIVEN IN OR.
== END 2021-11-28 23:59 | disposition home or self-care (01) ==
LOC: ED 16:41 → SDC 17:08
PROVIDERS: Emergency Provider Emergency Medicine; PCP Internal Medicine; Visit Provider Surgery
PROC: (CPT 45020; principal; 2021-11-28 16:40)
DX: K61.1 Rectal abscess (principal); R11.0 Nausea; D72.829 Elevated white blood cell count, unspecified; R50.9 Fever, unspecified; Z20.822 Contact with and (suspected) exposure to COVID-19; J45.909 Unspecified asthma, uncomplicated; Z79.899 Other long term (current) drug therapy; Z87.891 Personal history of nicotine dependence
CPT/HCPCS: 45020; 00902; 74177; 80048; 83605; 85025; 87070; 87075; 87077; 87176; 87186; 87205; 87811; 99282; Q9967; J2405

== ENCOUNTER → 2021-12-10 | Outpatient (CLI) | payer OTHER, MEDICAID, SELFPAY ==
[2021-12-10 16:31] LABS: Absolute Lymphocyte Count 1.19 X10^3/uL (0.83-4.51); Absolute Neutrophil Count 10.8 X10^3/uL (2.0-7.7); Basophil# 0.04 X10^3/uL; Basophil% 0.3 % (0-1); Eosinophil# 0.06 X10^3/uL; Eosinophils% 0.5 % (0-5); Hematocrit 39.8 % (37-47); Hemoglobin 12.9 g/dL (12.0-15.0); Lymphocyte # 1.19 X10^3/ul (0.83-4.51); Lymphocyte % 9.3 % (19-41); Mean Corp Hgb Conc 32.4 g/dL (32-36); Mean Corpuscular Hgb 31.9 pg (27.0-32.0); Mean Corpuscular Volume 98.5 fL (81-99); Mean Platelet Vol. 9.8 fl (6.2-12.0); Monocyte# 0.62 X10^3/uL; Monocyte% 4.9 % (0-10); NRBC Flagged by Analyzer 0 % (0-5); Neutrophil # 10.81 X10^3/uL (2.7-7.7); Neutrophil % 84.6 % (47-70); Platelet Count 424 K/mm3 (150-450); RBC Distribution Width CV 12.1 % (11.6-14.6); RBC Distribution Width SD 43.8 fl (35.1-43.9); Red Blood Count 4.04 M/mm3 (4.2-5.4); White Blood Count 12.8 K/mm3 (4.4-11.0)
[2021-12-10 16:43] LABS: Erythrocyte Sedimentation Rate 20 mm/hr (0-30)
[2021-12-10 16:51] LABS: AST(SGOT) 15 U/L (15-37); Alanine Aminotransfer ALT/SGPT 26 U/L (13-56); Alkaline Phosphatase 57 U/L (45-117); BUN 14 mg/dL (7-18); BUN/Creat Ratio 18.2 RATIO (10-20); Calcium,Total 9.1 mg/dL (8.5-10.1); Chloride 105 mmol/L (98-107); Creatinine, Serum 0.77 mg/dL (0.55-1.02); EST Glomerular Filtration Rate 86 mL/min (>60); Est Glom Filt Rate - Afr Amer 104 mL/min (>60); Glucose 91 mg/dL (74-106); Potassium 3.9 mmol/L (3.5-5.1); Sodium Level 136 mmol/L (136-145)
[2021-12-10 16:52] LABS: Anion Gap 8 (5-15); CRP 3.71 mg/L (0.0-3.0); T4 Free Direct 1.08 ng/dL (0.76-1.46); Thyroid Stim Hormone (TSH) 3.05 uIU/mL (0.358-3.74)
[2021-12-14 17:24] LABS: ANTINUCLEAR ANTIBODIES DIRECT Negative (Negative)
== END | disposition home or self-care (01) ==
LOC: BIMLAB 14:50
PROVIDERS: PCP Internal Medicine; Referring Provider Internal Medicine; Visit Provider Internal Medicine
DX: M19.90 Unspecified osteoarthritis, unspecified site (principal); K52.9 Noninfective gastroenteritis and colitis, unspecified; D72.829 Elevated white blood cell count, unspecified; K61.1 Rectal abscess; K61.0 Anal abscess
CPT/HCPCS: 36415; 80053; 84439; 84443; 85025; 85652; 86038; 86140; 86225; 86235; 87040

== ENCOUNTER 2021-12-11 14:03 | Emergency (ER) | payer OTHER, MEDICAID, SELFPAY ==
[2021-12-11 14:05] VITALS: BP 131/78; PULSE 98; RESP 15; TEMP 36.7; O2SAT 97; BMI 28.3
--- NOTE | 2021-12-11 14:58 | CT_ITS ---
STUDY: CT PELVIS WITH CONTRAST REASON FOR EXAM: Female, 46 years old. rectal abscess RADIATION DOSAGE (If Supplied By Facility): CTDIvol = ( 28.21 ) mGy, DLP = ( 915.79 ) mGycm TECHNIQUE: Transaxial imaging of the pelvis was performed without oral contrast. IV 100mL Isovue-300 was administered intravenously. Individualized dose optimization techniques were used for this CT. COMPARISON: 11/28/2021. FINDINGS: The feet previously visualized left perirectal abscess has resolved, radiopaque gauze/packing visualized in the medial aspect of the left gluteal region most likely representing the abscess cavity. No evidence of fluid collections is visualized, no evidence of stranding of the perirectal fat planes is seen. The rectum is visualized and is unremarkable, distal rectosigmoid is unremarkable. No evidence of stranding of the pelvic fat planes. No evidence of pelvic collection is seen. There is no pelvic fluid. There is no pelvic lymphadenopathy or mass lesion. Subtle bilateral inguinal lymph nodes seen. The urinary bladder is distended. Normal visualized small intestine. Normal visualized colon. Normal visualized pelvic arteries. Normal abdominal wall. Normal osseous structures. CT/Pelvis WITH IV Contrast IMPRESSION: Resolution of the previously visualized pelvic abscess. Electronically Signed: Stewart Hardy MD at 15:40 EDT ,
--- NOTE | 2021-12-11 15:01 | EX.ED.DYSGE1 ---
HPI <NADIYA Parra - Last Filed: 12/11/21 15:05> History of Present Illness Chief Complaint: Abscess Narrative Narrative: 46-year-old female with history of multiple allergies, presents to the emergency department with concerns of a recurring infection in her left rectal area. Patient on 20 November noticed a lump to the left rectal area, she was seen in the emergency department on November 28, 2021, she did receive a CT scan which showed deep tissue infection. Patient did have a surgery from Dr. Odonnell, a 15 cm drain was placed. Since this time, for the last 2 weeks, patient has had worsening symptoms, patient states that the pain is worse, there is redness around the site as well as drainage around the tube. She has seen Dr. Odonnell for this x2, she states that this is okay and then did place her on amoxicillin. Patient saw her PCP today, he was unable to do anything, patient called with Dr. Bowers office again today however they were told to come to the emergency department. Patient states to have subjective fevers and chills. Patient states her some white discharge around the drain. She is here for reevaluation [facility] <NADIYA Parra - Last Filed: 12/11/21 15:05> [facility] Medical History (Updated 12/11/21 @ 16:[address] Colt Melendrez MD) Allergic contact urticaria Anemia Arthritis Asthma Chest pain on respiration Chronic diarrhea Cutaneous mastocytosis Dietary restriction Fatigue Former smoker Frequent headaches Hay fever Heart disease History of Helicobacter pylori infection History of hemorrhoids History of irregular heartbeat History of ulceration Hx of echocardiogram Injury of head and neck Knee pain Limb weakness Mastocytosis Mitral valve prolapse Rectal abscess SOB (shortness of breath) Urticaria Uterine fibroid Wears glasses Home Medications Albuterol Aerosols 2 puff PO PRN PRN 09/04/18 [History Last Taken 2 Months Ago ~07/06/18] L.acidoph, paracasei,B. lactis 1 ea PO DAILY 09/04/18 [History Last Taken 09/04/18 09:00] epinephrine 0.3 mg IM PRN PRN 09/04/18 [History Last Taken Unknown] vit,[id number] 3 tab PO DAILY 09/04/18 [History Last Taken 09/04/18 09:00] albuterol sulfate 1 - 2 puff INHALATION Q4H PRN PRN 06/21/19 [History Last Taken Unknown] magnesium 200 mg tablet 325 mg PO QHS 09/17/19 [History Last Taken Unknown] famotidine [Pepcid] 20 mg PO DAILY 02/19/21 [History Last Taken Unknown] d-mannose 500 mg PO DAILY 04/06/21 [History Last Taken Unknown] amoxicillin-pot clavulanate [Augmentin] 1 tab PO Q8H 5 Days #15 tab 11/28/21 [Rx Last Taken Unknown] diphenhydramine HCl 25 mg capsule 25 mg PO QHS PRN 12/10/21 [History Last Taken Unknown] ibuprofen 600 mg PO Q8H PRN PRN #21 tablet 12/11/21 [Rx Last Taken Unknown] Allergy/AdvReac Type Severity Reaction Status Date / Time latex Allergy Other Verified 12/11/21 14:09 morphine Allergy Anaphylaxis Verified 12/11/21 14:09 NSAIDS (Non-Steroidal Allergy Hives Verified 12/11/21 14:09 Anti-Inflamma celecoxib [From Celebrex] AdvReac Other Verified 12/11/21 14:09 food dye Allergy Hives Uncoded 12/11/21 14:09 NARCOTICS AdvReac HYPERSENSTIVE Uncoded 12/11/21 14:09 TO NARCOTICS Family History Grandfather Heart disease Myocardial infarction Mother Melanoma Father Melanoma Prostate cancer Sister Melanoma Other Arthritis Hypertension Surgical History (Updated 12/11/21 @ 16:[address] Colt Melendrez MD) H/O bilateral salpingectomy History of History of hysteroscopy History of tonsillectomy and adenoidectomy Hx of appendectomy Social History Smoking Status: Former smoker Tobacco: How many years used: 10 alcohol intake: never substance use type: does not use what type of physical activity do you participate in: none ROS <NADIYA Parra - Last Filed: 12/11/21 15:05> ROS ED ROS Narrative Constitutional: Negative for fever, chills, weight loss, weakness Eyes: Negative for vision loss, vision change, double vision ENT: Negative for any sore throat, ear pain, congestion Cardiovascular: Negative for any chest pain, tightness, palpitations, racing heartbeat Respiratory: Negative for any cough, sputum production, hemoptysis, shortness of breath, shortness of breath on exertion, orthopnea Gastrointestinal: Negative for any abdominal pain, nausea, vomiting, diarrhea, constipation, blood in stool, blood in vomit : Negative for any urinary frequency, incontinence, dysuria, retention, blood in urine. Positive for left perirectal abscess drainage, pain Muscle skeletal: Negative for any muscle joint pain, stiffness, myalgias, arthralgias, neck pain, back pain Neurological: Negative for any headache, dizziness, syncope, numbness or tingling Skin: Negative for any rashes, lumps, itching, abrasions, lacerations Psychiatric: Negative for any depression, anxiety, stress, suicidal ideation, homicidal ideation Hematologic: Negative for any easy bruising, excessive bruising, easy bleeding Allergies: Negative for any eczema, hives, rash EXAM <NADIYA Parra - Last Filed: 12/11/21 15:05> Physical Exam Narrative Exam Narrative: Vital signs reviewed. HEET: Head normocephalic atraumatic, TMs clear bilaterally. Posterior pharynx is clear, moist mucous membranes. Nares clear bilaterally. Neck: Supple with no lymphadenopathy or tenderness. No signs of meningismus, negative jolt sign. Cardiac: Regular rate and rhythm no murmurs gallops or rubs, equal peripheral pulses bilaterally. Respiratory: Lungs clear to auscultation bilaterally. No chest tenderness. Abdomen: Soft, nontender, nondistended. No abdominal bruit or pulsatile masses. No hepatosplenomegaly Extremities: No peripheral edema, no signs of gross trauma or deformity. Active full range of motion of all extremities. Neuro: Cranial nerves II through XII intact, no focal neurological deficits. Skin: Clean dry and intact with no rash, purpura, petechiae, vesicles or pustules. Backslash flank: No CVA tenderness, no midline spinal tenderness, no deformity. Psych: Normal mood and affect. No SI, HI or acute psychosis. Recatl: Patient has a open wound to the right buttock medially around the rectum. There is no rectal involvement. Patient does have a drain placed, there is no drainage from the drain. There is slight white drainage around the drain. There is slight induration however minimal erythema, edema. Patient does have pain on palpation. I do not see any gross infection, however there is slight induration around the incision site. Const Vital Signs: 12/11/21 14:05 Temperature 98.0 F Temperature Source Temporal Pulse Rate 98 Respiratory Rate 15 Blood Pressure 131/78 H Blood Pressure Mean 95 Pulse Ox 97 Oxygen Delivery Method Room Air Positive well nourished and well developed General Appearance ED: well developed <Dr. Colt Melendrez MD - Last Filed: 12/11/21 16:22> Physical Exam Const Vital Signs: 12/11/21 14:05 Temperature 98.0 F Temperature Source Temporal Pulse Rate 98 Respiratory Rate 15 Blood Pressure 131/78 H Blood Pressure Mean 95 Pulse Ox 97 Oxygen Delivery Method Room Air MDM <NADIYA Parra - Last Filed: 12/11/21 15:05> [facility] Lab Data Labs: Laboratory Results - last 24 hr 12/11/21 15:05 WBC 8.8 RBC 3.85 L Hgb 12.4 Hct 37.9 MCV 98.4 MCH 32.2 H MCHC 32.7 RDW Std Deviation 44.0 H RDW Coeff of Bruna 12.2 Plt Count 330 MPV 9.4 Immature Gran % (Auto) 0.500 Neut % (Auto) 82.3 H Lymph % (Auto) 10.7 L [place] % (Auto) 5.7 Eos % (Auto) 0.6 Baso % (Auto) 0.2 Absolute Neuts (auto) 7.3 Absolute Lymphs (auto) 0.94 Nucleated RBC % 0 Radiography Diagnostic Testing: Clinical Impression(s) from Imaging Studies Pelvis CT 12/11/21 14:58 IMPRESSION: Resolution of the previously visualized pelvic abscess. Electronically Signed: Stewart Hardy MD at 15:40 EDT Reading Location ID and State: [facility] / [place] Tel , Service support , <Dr. Colt Melendrez MD - Last Filed: 12/11/21 16:22> [facility] Narrative Medical decision making narrative: Seen and evaluated independently and in conjunction with nurse practitioner. Agree with notes above unless documented otherwise. As above, patient had a perirectal abscess drainage and has a Monika drain in. She was seen 5 days ago by her surgeon and was advised to continue removing the drain little by little. There is approximately 15 cm packed within the abscess cavity which was about 2 cm deep. She states the pain has worsened and she is having some creamy discharge from the wound around the packing/drain. She denies any fevers or chills, but there is some redness around it. On exam, very tender wound in the 9 o'clock position, there is no anal discharge, but there is some scant amount of purulent discharge from the wound around the packing. The packing is within place. There is erythema around the edges of the wound, but no cellulitis that seems to extend away from it or palpable abscess, I am not able to express any significant amount of the material with pushing around the affected area. She had a CBC yesterday with a white blood count just over 12, repeated that and her blood count came back down to 8.8. We also obtained a CT with IV contrast of the area, it shows that the abscess is indeed resolved and the packing is in place. This is reassuring. We discussed options here. She is only been on antibiotics for about 48 hours and certainly has not failed those. We discussed boosting that with a dose of IV vancomycin and having her follow-up after the weekend as it is Tuesday evening right now. She prefers that. We also discussed removing the Monika drain in case she is having mastocytosis/reaction to the material of it, and not replacing it with gauze packing which she declines right now. Her surgeon is unfortunately out of the country for 2 weeks now, and she was referred to her colleague Dr. Garner who will be in the office and able to see her on Tuesday, which she plans on doing as well. Her PCP suggested wound care and she wants to see them, which I think is reasonable, if they decide to replace the drain with something there that would be reasonable as well. She was offered something for pain and prefers prescription ibuprofen tablets only which she can take without any allergy, she sometimes reacts to the plastic on the caplets and does not want any narcotics. After the vancomycin she will be discharged home and we discussed reasons to return she is comfortable with this plan, she will continue the Augmentin. Lab Data Attestation: I reviewed the patient's lab results. Labs: Laboratory Results - last 24 hr 12/11/21 15:05 WBC 8.8 RBC 3.85 L Hgb 12.4 Hct 37.9 MCV 98.4 MCH 32.2 H MCHC 32.7 RDW Std Deviation 44.0 H RDW Coeff of Bruna 12.2 Plt Count 330 MPV 9.4 Immature Gran % (Auto) 0.500 Neut % (Auto) 82.3 H Lymph % (Auto) 10.7 L [place] % (Auto) 5.7 Eos % (Auto) 0.6 Baso % (Auto) 0.2 Absolute Neuts (auto) 7.3 Absolute Lymphs (auto) 0.94 Nucleated RBC % 0 Radiography Diagnostic Testing: Clinical Impression(s) from Imaging Studies Pelvis CT 12/11/21 14:58 IMPRESSION: Resolution of the previously visualized pelvic abscess. Electronically Signed: Stewart Hardy MD at 15:40 EDT Reading Location ID and State: [address] [place] [address] Tel , Service support , Discharge Plan Triage Chief Complaint: Abscess ED Midlevel Provider: Dustin Le ED Provider: Colt Melendrez Dx/Rx/DC Orders Clinical Impression: Wound infection, S/P champ-rectal abscess repair, follow-up exam Instructions: ED Wound Check (Infection) Prescriptions: New ibuprofen 600 MG tablet 600 mg PO Q8H PRN PRN (Reason: pain) Qty: 21 RF: 0 No Action magnesium 200 mg tablet 325 mg PO QHS RF: 0 diphenhydramine HCl [Benadryl] 25 mg capsule 25 mg PO QHS PRNRF: 0 epinephrine 0.3 MG syringe 0.3 mg IM PRN PRN (Reason: Anaphylaxis) RF: 0 Albuterol Aerosols 2 puff PO PRN PRN (Reason: asthma) RF: 0 vit,[id number] 1 TABLET tablet 3 tab PO DAILY RF: 0 L.acidoph, paracasei,B. lactis 1 EACH capsule 1 ea PO DAILY RF: 0 albuterol sulfate 1 INHALER inhaler 1 - 2 puff inhalation Q4H PRN PRN (Reason: Sob &/Or Wheezing) RF: 0 famotidine [Pepcid] 20 mg Tablet 20 mg PO DAILY RF: 0 d-mannose 500 mg Capsule 500 mg PO DAILY RF: 0 amoxicillin-pot clavulanate [Augmentin] 500-125 mg tablet 1 tab PO Q8H 5 Days Qty: 15 RF: 0 Primary Care Provider: Tomy Martel Referrals: [facility] [Outside] ([phone]) Tomy Martel MD [Primary Care Provider] - Disposition Disposition: Home, Self Care
[2021-12-11 15:20] LABS: Absolute Lymphocyte Count 0.94 X10^3/uL (0.83-4.51); Absolute Neutrophil Count 7.3 X10^3/uL (2.0-7.7); Basophil# 0.02 X10^3/uL; Basophil% 0.2 % (0-1); Eosinophil# 0.05 X10^3/uL; Eosinophils% 0.6 % (0-5); Hematocrit 37.9 % (37-47); Hemoglobin 12.4 g/dL (12.0-15.0); Lymphocyte # 0.94 X10^3/ul (0.83-4.51); Lymphocyte % 10.7 % (19-41); Mean Corp Hgb Conc 32.7 g/dL (32-36); Mean Corpuscular Hgb 32.2 pg (27.0-32.0); Mean Corpuscular Volume 98.4 fL (81-99); Mean Platelet Vol. 9.4 fl (6.2-12.0); Monocyte% 5.7 % (0-10); NRBC Flagged by Analyzer 0 % (0-5); Neutrophil # 7.25 X10^3/uL (2.7-7.7); Neutrophil % 82.3 % (47-70); Platelet Count 330 K/mm3 (150-450); RBC Distribution Width CV 12.2 % (11.6-14.6); Red Blood Count 3.85 M/mm3 (4.2-5.4); White Blood Count 8.8 K/mm3 (4.4-11.0)
--- NOTE | 2021-12-11 16:35 | EX.ED.DYSGE1 ---
HPI History of Present Illness Chief Complaint: Abscess [facility] Medical History (Updated 12/11/21 @ 16:[address] Colt Melendrez MD) Allergic contact urticaria Anemia Arthritis Asthma Chest pain on respiration Chronic diarrhea Cutaneous mastocytosis Dietary restriction Fatigue Former smoker Frequent headaches Hay fever Heart disease History of Helicobacter pylori infection History of hemorrhoids History of irregular heartbeat History of ulceration Hx of echocardiogram Injury of head and neck Knee pain Limb weakness Mastocytosis Mitral valve prolapse Rectal abscess SOB (shortness of breath) Urticaria Uterine fibroid Wears glasses Home Medications Albuterol Aerosols 2 puff PO PRN PRN 09/04/18 [History Last Taken 2 Months Ago ~07/06/18] L.acidoph, paracasei,B. lactis 1 ea PO DAILY 09/04/18 [History Last Taken 09/04/18 09:00] epinephrine 0.3 mg IM PRN PRN 09/04/18 [History Last Taken Unknown] vit,[id number] 3 tab PO DAILY 09/04/18 [History Last Taken 09/04/18 09:00] albuterol sulfate 1 - 2 puff INHALATION Q4H PRN PRN 06/21/19 [History Last Taken Unknown] magnesium 200 mg tablet 325 mg PO QHS 09/17/19 [History Last Taken Unknown] famotidine [Pepcid] 20 mg PO DAILY 02/19/21 [History Last Taken Unknown] d-mannose 500 mg PO DAILY 04/06/21 [History Last Taken Unknown] amoxicillin-pot clavulanate [Augmentin] 1 tab PO Q8H 5 Days #15 tab 11/28/21 [Rx Last Taken Unknown] diphenhydramine HCl 25 mg capsule 25 mg PO QHS PRN 12/10/21 [History Last Taken Unknown] ibuprofen 600 mg PO Q8H PRN PRN #21 tablet 12/11/21 [Rx Last Taken Unknown] Allergy/AdvReac Type Severity Reaction Status Date / Time latex Allergy Other Verified 12/11/21 14:09 morphine Allergy Anaphylaxis Verified 12/11/21 14:09 NSAIDS (Non-Steroidal Allergy Hives Verified 12/11/21 14:09 Anti-Inflamma celecoxib [From Celebrex] AdvReac Other Verified 12/11/21 14:09 food dye Allergy Hives Uncoded 12/11/21 14:09 NARCOTICS AdvReac HYPERSENSTIVE Uncoded 12/11/21 14:09 TO NARCOTICS Family History Grandfather Heart disease Myocardial infarction Mother Melanoma Father Melanoma Prostate cancer Sister Melanoma Other Arthritis Hypertension Surgical History (Updated 12/11/21 @ 16:[address] Colt Melendrez MD) H/O bilateral salpingectomy History of History of hysteroscopy History of tonsillectomy and adenoidectomy Hx of appendectomy Social History Smoking Status: Former smoker Tobacco: How many years used: 10 alcohol intake: never substance use type: does not use what type of physical activity do you participate in: none EXAM Physical Exam Const Vital Signs: 12/11/21 14:05 Temperature 98.0 F Temperature Source Temporal Pulse Rate 98 Respiratory Rate 15 Blood Pressure 131/78 H Blood Pressure Mean 95 Pulse Ox 97 Oxygen Delivery Method Room Air MDM MDM MDM Narrative Medical decision making narrative: She didPatient appears well, patient appears nontoxic, vital signs are stable. Patient presents the emergency department for concern of a incision from an abscess with a drain being infected. Receive a repeat CBC here, the patient's white blood count was 8.8, this is better from the 12.8 which occurred yesterday. Patient does not appear septic, vital signs are stable. Patient also received a CT scan of the pelvis to ensure the infection has not returned, this CT scan showed resolution of the previously visualized pelvic abscess. At this time, believe the patient is stable for discharge. We did come up with a plan, patient will receive IV vancomycin 1 dose, and will follow up outpatient with her surgeon. Patient is happy with the plan of care and is stable for discharge. Strict return for any worsening symptoms Lab Data Labs: Laboratory Results - last 24 hr 12/11/21 15:05 WBC 8.8 RBC 3.85 L Hgb 12.4 Hct 37.9 MCV 98.4 MCH 32.2 H MCHC 32.7 RDW Std Deviation 44.0 H RDW Coeff of Bruna 12.2 Plt Count 330 MPV 9.4 Immature Gran % (Auto) 0.500 Neut % (Auto) 82.3 H Lymph % (Auto) 10.7 L [place] % (Auto) 5.7 Eos % (Auto) 0.6 Baso % (Auto) 0.2 Absolute Neuts (auto) 7.3 Absolute Lymphs (auto) 0.94 Nucleated RBC % 0 Radiography Diagnostic Testing: Clinical Impression(s) from Imaging Studies Pelvis CT 12/11/21 14:58 IMPRESSION: Resolution of the previously visualized pelvic abscess. Electronically Signed: Stewart Hardy MD at 15:40 EDT Reading Location ID and State: [facility] / [place] Tel , Service support , Discharge Plan Triage Chief Complaint: Abscess ED Midlevel Provider: Dustin Le ED Provider: Colt Melendrez Dx/Rx/DC Orders Clinical Impression: Wound infection, S/P champ-rectal abscess repair, follow-up exam Instructions: ED Wound Check (Infection) Prescriptions: New ibuprofen 600 MG tablet 600 mg PO Q8H PRN PRN (Reason: pain) Qty: 21 RF: 0 No Action magnesium 200 mg tablet 325 mg PO QHS RF: 0 diphenhydramine HCl [Benadryl] 25 mg capsule 25 mg PO QHS PRNRF: 0 epinephrine 0.3 MG syringe 0.3 mg IM PRN PRN (Reason: Anaphylaxis) RF: 0 Albuterol Aerosols 2 puff PO PRN PRN (Reason: asthma) RF: 0 vit,[id number] 1 TABLET tablet 3 tab PO DAILY RF: 0 L.acidoph, paracasei,B. lactis 1 EACH capsule 1 ea PO DAILY RF: 0 albuterol sulfate 1 INHALER inhaler 1 - 2 puff inhalation Q4H PRN PRN (Reason: Sob &/Or Wheezing) RF: 0 famotidine [Pepcid] 20 mg Tablet 20 mg PO DAILY RF: 0 d-mannose 500 mg Capsule 500 mg PO DAILY RF: 0 amoxicillin-pot clavulanate [Augmentin] 500-125 mg tablet 1 tab PO Q8H 5 Days Qty: 15 RF: 0 Primary Care Provider: Tomy Martel Referrals: [facility] [Outside] ([phone]) Tomy Martel MD [Primary Care Provider] - Disposition Disposition: Home, Self Care
--- NOTE | 2021-12-11 17:30 | ED.RN ---
PT HOT AND RED FROM [facility]. STATES REDNESS TO SCALP AND DOWN NECK. DR AWARE. RATE DECREASED TO HALF
[2021-12-11 18:33] VITALS: BP 130/82; PULSE 88; RESP 18; O2SAT 99
[2021-12-11] MEDS: DiphenhydrAMINE 50 MG/ML Syringe 25 MG IV (19:17)
[2021-12-11 19:30] VITALS: BP 123/53; PULSE 78; RESP 16; O2SAT 100
== END 2021-12-11 19:45 | disposition home or self-care (01) ==
PROVIDERS: Nurse Practitioner; Emergency Provider Emergency Medicine; PCP Internal Medicine; Visit Provider Emergency Medicine
DX: T81.40XA Infection following a procedure, unspecified, initial encounter (principal); Z98.890 Other specified postprocedural states; J45.909 Unspecified asthma, uncomplicated; M19.90 Unspecified osteoarthritis, unspecified site; Z87.891 Personal history of nicotine dependence
CPT/HCPCS: 72193; 85025; 96365; 96366; 96375; 99283; J7050; Q9967

== ENCOUNTER → 2021-12-11 | Outpatient (CLI) | payer OTHER, MEDICAID, SELFPAY ==
[2021-12-16 11:51] LABS: Calprotectin, Stool 143 ug/g (0-120)
== END | disposition home or self-care (01) ==
LOC: LABSPEC 13:55
PROVIDERS: PCP Internal Medicine; Referring Provider Internal Medicine; Visit Provider Internal Medicine
DX: K52.9 Noninfective gastroenteritis and colitis, unspecified (principal)
CPT/HCPCS: 72193; 83630; 83993; 85025; 87493; 87506; 96365; 96366; 96375; 99283; J7050; Q9967

== ENCOUNTER → 2021-12-24 | Outpatient (CLI) | payer OTHER, MEDICAID, SELFPAY ==
[2021-12-24 16:41] LABS: Absolute Lymphocyte Count 1.47 X10^3/uL (0.83-4.51); Basophil# 0.05 X10^3/uL; Basophil% 0.6 % (0-1); Eosinophil# 0.08 X10^3/uL; Hematocrit 40.6 % (37-47); Hemoglobin 13.1 g/dL (12.0-15.0); Lymphocyte # 1.47 X10^3/ul (0.83-4.51); Lymphocyte % 18.2 % (19-41); Mean Corp Hgb Conc 32.3 g/dL (32-36); Mean Corpuscular Hgb 32.3 pg (27.0-32.0); Mean Platelet Vol. 10.3 fl (6.2-12.0); Monocyte# 0.48 X10^3/uL; NRBC Flagged by Analyzer 0 % (0-5); Neutrophil # 5.96 X10^3/uL (2.7-7.7); Platelet Count 307 K/mm3 (150-450); Red Blood Count 4.06 M/mm3 (4.2-5.4); White Blood Count 8.1 K/mm3 (4.4-11.0)
[2021-12-24 16:57] LABS: ALB/GLOB Ratio 1.1 RATIO (0.9-2.4); AST(SGOT) 21 U/L (15-37); Alanine Aminotransfer ALT/SGPT 28 U/L (13-56); Alkaline Phosphatase 45 U/L (45-117); Anion Gap 6 (5-15); BUN 10 mg/dL (7-18); BUN/Creat Ratio 11.4 RATIO (10-20); Chloride 105 mmol/L (98-107); Creatinine, Serum 0.88 mg/dL (0.55-1.02); EST Glomerular Filtration Rate 74 mL/min (>60); Est Glom Filt Rate - Afr Amer 90 mL/min (>60); Globulin 3.7 g/dL (2.2-4.2); Glucose 83 mg/dL (74-106); Potassium 4.2 mmol/L (3.5-5.1); Protein, Total 7.7 g/dL (6.4-8.2); Sodium Level 137 mmol/L (136-145)
== END | disposition home or self-care (01) ==
LOC: BIMLAB 15:31
PROVIDERS: PCP Internal Medicine; Referring Provider Internal Medicine; Visit Provider Internal Medicine
DX: K52.9 Noninfective gastroenteritis and colitis, unspecified (principal); A49.8 Other bacterial infections of unspecified site
CPT/HCPCS: 36415; 80053; 85025

== ENCOUNTER → 2021-12-25 | Outpatient (CLI) | payer OTHER, MEDICAID, SELFPAY | END | disposition home or self-care (01) | LOC: LABSPEC 11:30 | PROVIDERS: PCP Internal Medicine; Referring Provider Internal Medicine; Visit Provider Internal Medicine | DX: K52.9 Noninfective gastroenteritis and colitis, unspecified (principal); A49.8 Other bacterial infections of unspecified site | CPT/HCPCS: 87493 ==

== ENCOUNTER → 2022-01-14 | Outpatient (CLI) | payer OTHER, MEDICAID, SELFPAY ==
[2022-01-14 14:31] LABS: Erythrocyte Sedimentation Rate 5 mm/hr (0-30)
[2022-01-14 14:33] LABS: Absolute Lymphocyte Count 1.11 X10^3/uL (0.83-4.51); Absolute Neutrophil Count 7.2 X10^3/uL (2.0-7.7); Basophil# 0.03 X10^3/uL; Basophil% 0.3 % (0-1); Eosinophil# 0.05 X10^3/uL; Eosinophils% 0.6 % (0-5); Hematocrit 39.2 % (37-47); Hemoglobin 12.7 g/dL (12.0-15.0); Lymphocyte # 1.11 X10^3/ul (0.83-4.51); Lymphocyte % 12.6 % (19-41); Mean Corp Hgb Conc 32.4 g/dL (32-36); Mean Corpuscular Hgb 32.3 pg (27.0-32.0); Mean Corpuscular Volume 99.7 fL (81-99); Mean Platelet Vol. 10.1 fl (6.2-12.0); Monocyte# 0.44 X10^3/uL; NRBC Flagged by Analyzer 0 % (0-5); Neutrophil # 7.18 X10^3/uL (2.7-7.7); Neutrophil % 81.2 % (47-70); Platelet Count 277 K/mm3 (150-450); RBC Distribution Width CV 12.8 % (11.6-14.6); RBC Distribution Width SD 47.5 fl (35.1-43.9); Red Blood Count 3.93 M/mm3 (4.2-5.4); White Blood Count 8.8 K/mm3 (4.4-11.0)
[2022-01-14 15:06] LABS: AST(SGOT) 13 U/L (15-37); Alanine Aminotransfer ALT/SGPT 19 U/L (13-56); Albumin, Serum 3.9 g/dL (3.2-5.0); Alkaline Phosphatase 47 U/L (45-117); Anion Gap 7 (5-15); BUN 12 mg/dL (7-18); BUN/Creat Ratio 15.4 RATIO (10-20); CRP < 2.90 mg/L (0.0-3.0); Calcium,Total 9.3 mg/dL (8.5-10.1); Chloride 107 mmol/L (98-107); Creatinine, Serum 0.78 mg/dL (0.55-1.02); EST Glomerular Filtration Rate 85 mL/min (>60); Est Glom Filt Rate - Afr Amer 103 mL/min (>60); Globulin 3.8 g/dL (2.2-4.2); Glucose 86 mg/dL (74-106); Protein, Total 7.7 g/dL (6.4-8.2); Sodium Level 140 mmol/L (136-145)
[2022-01-19 15:08] LABS: Anti-Centromere B Ab <0.2 AI (0.0-0.9); Anti-Chromatin <0.2 AI (0.0-0.9); Anti-Jo <0.2 AI (0.0-0.9); Anti-Scleroderma-70 AB <0.2 AI (0.0-0.9); RNP Ab <0.2 AI (0.0-0.9); SJOGREN'S Anti-SS-A test < 0.2 AI (0.0-0.9); SJOGREN'S Anti-SS-B test < 0.2 AI (0.0-0.9); Smith Ab <0.2 AI (0.0-0.9)
[2022-01-19 16:08] LABS: Endomysial Antibody IgA Negative (Negative)
[2022-01-20 09:39] LABS: Immunoglobulin A 114 mg/dL (87-352); t-Transglutaminase IgA <2 U/mL (0-3)
[2022-01-20 11:09] LABS: Anti-dsDNA Ab <1 IU/mL (0-9)
[2022-01-22 22:06] LABS: Alpha-1-Globulins 0.2 g/dL (0.0-0.4); Alpha-2-Globulins 0.7 g/dL (0.4-1.0); Cytoplasmic Ab (C-ANCA) <1:20 titer (Neg:<1:20); Gamma Globulin 1.4 g/dL (0.4-1.8); Immunoglobulin A 113 mg/dL (87-352); Immunoglobulin E 44 IU/mL (6-495); Immunoglobulin G 1301 mg/dL (586-1602); Immunoglobulin M 151 mg/dL (26-217); PROEL- TOTAL PROTEIN 7.3 g/dL (6.0-8.5)
[2022-01-22 22:33] LABS: Perinuclear Ab (P-ANCA) <1:20 titer (Neg:<1:20)
== END | disposition home or self-care (01) ==
LOC: LAB 13:43
PROVIDERS: PCP Internal Medicine; Referring Provider Internal Medicine Gastroenterology; Visit Provider Internal Medicine Gastroenterology
DX: K52.9 Noninfective gastroenteritis and colitis, unspecified (principal)
CPT/HCPCS: 36415; 80053; 82784; 82785; 83516; 84165; 85025; 85652; 86140; 86225; 86235; 86255; 86256; 86334

== ENCOUNTER → 2022-01-15 | Outpatient (CLI) | payer OTHER, MEDICAID, SELFPAY ==
[2022-01-20 11:21] LABS: Giardia Lamblia, Stool EIA Negative (Negative)
[2022-01-22 07:54] LABS: Calprotectin, Stool 19 ug/g (0-120)
== END | disposition home or self-care (01) ==
LOC: LABSPEC 13:08
PROVIDERS: PCP Internal Medicine; Referring Provider Internal Medicine Gastroenterology; Visit Provider Internal Medicine Gastroenterology
DX: K52.9 Noninfective gastroenteritis and colitis, unspecified (principal)
CPT/HCPCS: 83630; 83993; 87177; 87209; 87329; 87493; 87506

== ENCOUNTER 2022-03-03 11:05 | Day surgery (SDC) | payer OTHER, MEDICAID, SELFPAY ==
[2022-03-03] VITALS (7 sets, daily range): BP systolic 96–125; BP diastolic 56–77; PULSE 68–87; RESP 16; TEMP 36.2–36.9; O2SAT 95–100; BMI 27.5
[2022-03-03] MEDS: Lactated Ringers 1,000 ML 15 ML IV (11:55)
--- NOTE | 2022-03-03 12:47 | HP.PCM_ITS ---
History and Physical Date of Admission: 03/03/22 Date of Service:? 02/24/22 MR#: [id number] Acct: [id number] Name:SOFIE PRINGLE Rep #: [id number] : 1975 ? ? Provider: Dr. Julio Conde MD Age/Sex:? 46/F ? ? Location: [facility] Status: Signed Intake Vital Signs ? 02/24/2210:25 Height 5 ft 5 in Weight: 164 lb BMI 27.3 BP 126/74 H Blood Pressure Location Rt brachial Position Sitting Respiration 16 Pulse 74 Pulse Source Monitor Temp 97.5 F L Temp Source Temporal Pulse Oximetry (%) 98 Oxygen Delivery Method room air Intake Visit Reasons:?2 W FU RECTAL ABSCESS Chief Complaint: rectal abscess Enterprise Resource Planner Required: No Is patient in pain?: Yes Pain scale (1-10): 2 Allergies latex Allergy (Verified 02/24/22 10:26) Othermorphine Allergy (Verified 02/24/22 10:26) AnaphylaxisNSAIDS (Non-Steroidal Anti-Inflamma Allergy (Verified 02/24/22 10:26) Hivescelecoxib [From Celebrex] Adverse Reaction (Verified 02/24/22 10:26) Otherfood dye Allergy (Uncoded 02/24/22 10:26) HivesNARCOTICS Adverse Reaction (Uncoded 02/24/22 10:26) HYPERSENSTIVE TO NARCOTICS Medications Albuterol Aerosols 2 puff PO PRN PRN asthma 09/04/18 [History Confirmed 02/24/22] L.acidoph, paracasei,B. lactis 10 billion cell capsule 1 ea PO DAILY gut health 09/04/18 [History Confirmed 02/24/22] epinephrine 0.3 mg/0.3 mL injection, auto-injector 0.3 mg IM PRN PRN Anaphylaxis 09/04/18 [History Confirmed 02/24/22] vits,calcium no.78-iron fumarate-folic acid 29 mg-1 mg tablet 3 tab PO DAILY SUPPLEMENT 09/04/18 [History Confirmed 02/24/22] albuterol sulfate 90 mcg/actuation aerosol inhaler 1 - 2 puff inhalation Q4H PRN PRN Sob &/Or Wheezing 06/21/19 [History Confirmed 02/24/22] magnesium 200 mg tablet 325 mg PO QHS 09/17/19 [History Confirmed 02/24/22] famotidine 20 mg tablet (Pepcid) 20 mg PO DAILY 02/19/21 [History Confirmed 02/24/22] d-mannose 500 mg capsule 500 mg PO DAILY 04/06/21 [History Confirmed 02/24/22] amoxicillin 500 mg-potassium clavulanate 125 mg tablet (Augmentin) 1 tab PO Q8H 5 days #15 tabs 11/28/21 [Rx Confirmed 02/24/22] diphenhydramine HCl 25 mg capsule (Benadryl) 25 mg PO QHS PRN Sleep 12/10/21 [History Confirmed 02/24/22] ibuprofen 600 mg tablet 600 mg PO Q8H PRN PRN pain #21 TABLETS 12/11/21 [Rx Confirmed 02/24/22] nystatin 100,000 unit/mL oral suspension 400,000 unit (4 mL) PO Q6H 10 days #160 mL 12/24/21 [Rx Confirmed 02/24/22] clindamycin phosphate 1 % lotion 1 applic topical BID #60 mL 01/14/22 [Rx Confirmed 02/24/22] metronidazole 375 mg capsule (Flagyl) 375 mg PO TID #42 caps 01/14/22 [Rx Confirmed 02/24/22] vancomycin 125 mg capsule 125 mg PO Q6H #56 caps 01/14/22 [Rx Confirmed 02/24/22] PFSH Medical History? Allergic contact urticaria Anemia Arthritis Asthma Chest pain on respiration Chronic diarrhea Clostridioides difficile infection Cutaneous mastocytosis Dietary restriction Fatigue Former smoker Frequent headaches Hay fever Heart disease History of Helicobacter pylori infection History of hemorrhoids History of irregular heartbeat History of ulceration Hx of echocardiogram Injury of head and neck Knee pain Limb weakness Mastocytosis Mitral valve prolapse Oral candidiasis Rectal abscess Right carpal tunnel syndrome SOB (shortness of breath) Urticaria Uterine fibroid Wears glasses Surgical History? H/O bilateral salpingectomy History of History of hysteroscopy History of tonsillectomy and adenoidectomy Hx of appendectomy Family History? Grandfather Heart disease Myocardial infarctionMother MelanomaFather Melanoma Prostate cancerSister MelanomaOther Arthritis Hypertension Social History? Smoking Status:? Former smoker Tobacco: How many years used:? 10 alcohol intake:? never substance use type:? does not use what type of physical activity do you participate in:? none HPI HPI HPI: SOFIE MORELOS, is a 46 F who presents to the office today for complaint of a persistent perirectal opening following an I&D procedure in November.? This is her second consultation visit.? She reports that following her first visit on 02/10/2022 she experienced passage of a large amount of blood clot with her subsequent bowel movement.? Thereafter she did not experience further drainage or bleeding and seemed encouraged that things were better.? However, she notes recurrence of some perianal discomfort beginning yesterday.? She denies any associated fevers or chills.? She states that her bowel movements remain loose and frequent secondary to her chronic C. difficile infection. Below is recapitulated from patient's initial surgical visitation: Patient states that starting 20 November 2021 she began with a pain in her buttock that became progressively more symptomatic to the point that she was unable to sit comfortably.? She had initially question whether this was related to her change in antihistamine prescribed by her jump iron machine presser (she notes a history of urticaria mastocytosis and a change to Zyrtec that was associated with a serotonin-like syndrome description).? She states that when the discomfort did not improve, she sought ER evaluation where a CT scan was performed and an abscess was found.? She then underwent surgery with Dr. Odonnell who placed a [place] drain in the cavity for ongoing drainage.? She notes a allergy to latex and silicone and was concerned that there was increasing redness developing around the drain in the postoperative period.? She saw Dr. Odonnell for this issue and was advised to begin slowly backing out the drain.? Unfortunately this wound persisted and Dr. Odonnell left the country and was unavailable to her so Dr. Garner was asked to see her.? However, when she learned Dr. Garner did not have privileges at [facility] she presented to the ER where she was prescribed Augmentin for the cellulitis at her drain site.? She notes that she then followed up with Dr. Garner as an outpatient following this ER visit and he pulled the [place] drain and stated he was concerned for an allergic reaction.? She relates that there was one other visit with Dr. Garner and she was advised that if the wound continued to drain she may need to seek reevaluation as this could possibly represent a fistula.? Mrs. Morelos states that the wound is now draining a pinkish-dickinson color.? She notes that there is some new stinging pain.? She denies any recurrence of the fullness she first felt at this location.? She denies any fevers or chills.? She followed up with her PCP Dr. Martel who expressed concern that she still had an open wound and then established following with Dr. Sánchez for a diagnosis of refractory C. difficile who also prescribed a clindamycin gel for her wound given a prior culture showing staph growth. Patient was first diagnosed with C. difficile after she went on Augmentin for the redness around her Monika drain.? She was placed on Flagyl with seeming improvement in her symptoms, however her diarrhea recurred and she again tested positive for C. difficile.? At that time she was placed on p.o. bank.? Again, she experienced some improvement of her symptoms, but again she experienced a recurrence.? It was at this time that she saw Dr. Sánchez to declared she had a chronic C. difficile infection and prescribed a combination of Vanco and Flagyl.? She states that she has now completed the Flagyl and is on this until she is due to follow-up with Dr. Sánchez in March for a colonoscopy.? At this point she states that her stools are soft and controlled, but seems to bemoaning the fact that she has to restrict her diet of the things she most enjoys?detailing this to mean fruits and veggies.? She also relates that she is now showering 5-6 times daily after her bowel movements to try to keep her backside wound clean. Patient denies any significant family diagnoses and specifically denies any family history of inflammatory bowel disease.? Her only medications at this time are Zyrtec, Pepcid, and oral vancomycin. ROS General General: Yes weight change and fatigue; No appetite, colon cancer, breast cancer or weakness HEENT HEENT: No difficulty swallowing, eye injury, eye surgery, swollen glands or hoarseness Endo Endocrine: No thyroid disease, diabetes mellitus, thyroid cancer, Hair loss, heat intolerance or cold intolerance Skin Skin: Yes rash; No changing moles Breast Breast: No left breast lump, right breast lump, nipple discharge, breast pain, abnormal mammogram, abnormal US or breast enlargement Musc Musculoskeletal: No back problems, arthritis, rheumatoid arthritis, gout or joint pain Cardio Cardiovascular: Yes murmur; No pacemaker, heart disease, atrial fibrillation, high blood pressure, heart attack, heart stent, palpitations, shortness of breat with exertion or chest pain Psych Psychiatric: Yes anxiety; No depression or hearing voices Resp Respiratory: Yes shortness of breath, No sleep apnea, No cough, No COPD, Yes asthma, No emphysema and No wheezing Gastro Gastrointestinal: Yes abdominal pain, Yes nausea or vomiting, Yes diarrhea, No constipation, No blood in stool, Yes acid reflux, No hemorrhoids, No ulcers, No gallbladder problem and No black,tarry stools Manish Hematologic: No blood thinners, No blood disorders, No bleeding, Yes anemia and No blood clots Neuro Neurologic: No system reviewed and no additional complaints, except as documented, No as per HPI, No abnormal gait, No abnormal hearing, No abnormal movements, No abnormal speech, No behavioral changes, No burning sensations, No confusion, No convulsions, No disequilibrium, No dizziness, No localized weakness, No frequent falls, No headache(s), No lack of coordination, No loss of vision, No memory loss, Yes numbness, No other visual disturbances, No radicular pain, No restless legs, No sensory deficit, No syncope, Yes tingling, No tremor(s), No weakness and No other Exam Const General: cooperative and comfortable (Until exam) Orientation: alert, awake and oriented x3 GI Other: Patient with persistent break in the perianal skin at approximately 11 o'clock position.? There is no visible drainage.? This opening appears smaller in size.? A digital rectal exam was performed and the patient notes increased tenderness along the anal canal adjacent to the perianal opening.? I did not palpate an area of fluctuance, but there is increased fullness.? The perianal opening is probed with a 14-gauge angiocatheter tip and accommodates the full length of the catheter without excessive force. Assessment and Plan Assessment and Plan (1) Nonhealing surgical wound: ?Status:?Acute ?Comment: This is a 46-year-old female, with a history of chronic C. difficile infection (now symptomatically controlled) and perirectal abscess who presents with a nonhealing surgical wound status post drainage procedure for perirectal abscess earlier in November 2021.? She seems to have experienced some transient relief of drainage and discomfort following a application of silver nitrate to the site at her last visit on 02/10/2022.? Unfortunately with today's exam identified a persistent perianal opening and there is substantial depth to this area as it accommodates the entire length of a 14-gauge angiocatheter.? I do not have a anoscope at my disposal to definitively examine this area to confirm a fistula.? Given the persistence of this tract, I have recommended a exam under anesthesia with possible seton?type drainage placement and curettage of the tract.? Patient is excepting of this recommendation and we will get her scheduled for this procedure. ?Plan: ? Anal exam under anesthesia with possible seton type drain placement and curettage of tract ? Patient instructed to continue to keep the area clean and dry I have re-examined the patient. There are no clinical changes since date of exam. Proceed with anorectal exam under anesthesia and possible seton placement.
[2022-03-03] MEDS: Cefazolin 2 GM in 0.9% Normal Saline 100 ML IV (12:51)
[2022-03-03] MEDS: Lubricating Jelly 60 GM Tube 30 GM (13:17)
[2022-03-03] MEDS: Bupivacaine 0.25% 30 ML Vial (13:17)
--- NOTE | 2022-03-03 13:53 | OP.PCM_ITS ---
Report of Operation Date of Procedure: 03/03/22 Pre-Operative Diagnosis: 1. Nonhealing postoperative perianal wound 2. Chronic C. difficile infection Post-Operative Diagnosis: Same Surgery/Procedure Performed:: 1. Anorectal exam under anesthesia 2. Curettage of chronic wound Description of Surgical Findings:: ? Sinus tract without evidence of communicating fistula that measured 2 cm in depth Surgeon: Julio Conde loan approver: Asif Sandra Type of Anesthesia: General/Supplemental Anesthesiologist: Henry Marie Estimated Blood Loss (mL): 5 Description of Procedure: After appropriate identification in the preoperative holding area the patient was brought to the operating room where she was positioned supine. She was administered preoperative antibiotics and induced with a general endotracheal anesthetic. She was then repositioned in lithotomy with leg holders. Her vulva, perineal area and perianal area were prepped and draped. A formal timeout was conducted to confirm the patient and the procedure to be performed. The procedure was begun with insertion of a lubricated Alex-Valdovinos retractor. This retractor was oriented in such a way as to expose the inner aspect of the anal canal subjacent the patient's chronic wound. I then used a series of lacrimal probes to probe the wound and assess whether there was tracking towards the canal. The probe passed a distance of 2 cm, but no further despite multiple diameter probes. I then did a second fistula test by inserting a 14-gauge angiocatheter attached to a syringe of hydrogen peroxide. The tip of the angiocatheter, likewise, did not pass beyond this depth and when I injected the sinus with hydrogen peroxide I was unable to visualize any bubbling within the anal canal. Therefore this attempt was abandoned and I performed a curettage of the inner lining of the patient's sinus tract. I then instilled 10 mL's of 0.25% plain bupivacaine about the area to improve postoperative analgesia. To facilitate hemostasis, the cavity was packed with quarter inch iodoform gauze. Lastly 3 gauze rolls were made and taped as a compressive/absorbent dressing over the patient's surgical site. Case was then concluded and the patient was awakened and transferred to PACU for ongoing recovery.
--- NOTE | 2022-03-03 14:42 | DCINST_ITS ---
Discharge Instructions Diet Discharge Diet: No restrictions Activity May shower in (days): 1 Dressing / Incision Call your doctor if your incision/area has: Continuous Slow Oozing, Sudden Increased Bleeding, Increased Pain/ Swelling and Increased Redness Call your doctor if you observe: Fever of 101 or Higher Remove Dressing in: 1 day (Remove packing on 03/04/2022 unless becomes soiled sooner and may leave wound unpacked) Cleanse incision/area with: Soap & Water Additional Dressing/Incision Instructions:: Okay to remove outer gauze this later this evening Follow Up Care Please Follow Up With: Julio Conde MD When: 1.5 weeks postop Test Results: Test results from this visit will be discussed in further detail at your follow- up appointment, if applicable. Discharge Plan Admission Primary Reason for Your Visit: Nonhealing postoperative perianal wound Attending Provider: Julio Conde Primary Care Provider: Tomy Martel Discharge Orders/Prescriptions Prescriptions: No Action diphenhydramine HCl [Benadryl] 25 mg capsule 25 mg PO QHS PRN (Reason: Sleep) vancomycin 125 mg capsule 125 mg PO Q6H Qty: 56 2RF epinephrine 0.3 MG syringe 0.3 mg IM PRN PRN (Reason: Anaphylaxis) Albuterol Aerosols 2 puff PO PRN PRN (Reason: asthma) albuterol sulfate 1 INHALER inhaler 1 - 2 puff inhalation Q4H PRN PRN (Reason: Sob &/Or Wheezing) famotidine [Pepcid] 20 mg Tablet 20 mg PO DAILY ascorbic acid (vitamin C) [Vitamin C] 1,000 mg Tablet 1 g PO DAILY Calcium + Vitamin D 600 mg calcium- 200 unit Tablet 2 tab PO QHS Zyrtec 10 mg Capsule 10 mg PO BID Referrals / Follow Up: Tomy Martel MD [Primary Care Provider] - Disposition Disposition (needs filled in before D/C Order can be placed): Home, Self Care
== END 2022-03-03 15:35 | disposition home or self-care (01) ==
LOC: SDC 11:06 → AC 11:08
PROVIDERS: PCP Internal Medicine; Visit Provider Surgery
PROC: (CPT 45990; principal; 2022-03-03 12:25)
DX: T81.89XA Other complications of procedures, not elsewhere classified, initial encounter (principal); A04.71 Enterocolitis due to Clostridium difficile, recurrent; J45.909 Unspecified asthma, uncomplicated; M19.90 Unspecified osteoarthritis, unspecified site; Z79.899 Other long term (current) drug therapy; Z87.891 Personal history of nicotine dependence
CPT/HCPCS: 45990; 00902; J7120; J2405

== ENCOUNTER → 2022-03-29 | Outpatient (CLI) | payer OTHER, MEDICAID, SELFPAY | END | disposition home or self-care (01) | LOC: LABSPEC 14:36 | PROVIDERS: PCP Internal Medicine; Referring Provider Internal Medicine Gastroenterology; Visit Provider Internal Medicine Gastroenterology | DX: A49.8 Other bacterial infections of unspecified site (principal) | CPT/HCPCS: 87493 ==

== ENCOUNTER 2022-04-21 10:41 | Day surgery (SDC) | payer OTHER, MEDICAID, SELFPAY ==
--- NOTE | 2022-04-21 | COLBX_PTH ---
PATIENT: SOFIE SIEGEL LOC: EN U#:[id number] AGE/SX: 46/F ROOM: RE04/21/[address]: Dr. Andrew Sánchez DO : 1975 BED: DIS: 04/21/2022 SPEC #: [id number] RECD: 04/21/22 13:57 STATUS: JAMARI DELILAH #: [id number] CHICO: 04/21/22 00:[address]: Andrew Sánchez DEPT: SURGICAL PATHOLOGY RECD BY: [place] ENTERED: 04/22/22 11:05 SP TYPE: COLON BX NENA DR: Dr. Tomy Martel MD Tissues: A - Duodenum, NOS B - Esophageal mucous membrane Procedures: Surgery Specimen Level IV HEADER OPERATION: Colonoscopy, EGD ([facility]), biopsy PRE-OP DIAGNOSIS: Nonspecific colitis, mastocytosis, clostridioides difficle infection TISSUE SUBMITTED: A ? Duodenum biopsy, B ? Distal esophagus biopsy MICROSCOPIC DIAGNOSIS A. Duodenum, biopsy: Fragments of duodenal mucosa, no pathologic diagnosis. B. Distal esophagus, biopsy: Fragments of squamous epithelium with chronic inflammation. NATHEN:richard 04/23/2022 MICROSCOPIC DESCRIPTION Slides are reviewed. GROSS DESCRIPTION A - Received in fixative is one container labeled with the patient's name and designated duodenum biopsy. The specimen consists of two irregular fragments of light mandujano soft tissue that in aggregate measure 0.6 x 0.3 x 0.1 cm. The specimen is totally submitted in one cassette. B - Received in fixative is one container labeled with the patient's name and designated distal esophagus biopsy. The specimen consists of two irregular fragments of light mandujano soft tissue that in aggregate measure 0.6 x 0.3 x 0.1 cm. The specimen is totally submitted in one cassette. / NATHEN:richard 04/22/2022 TC:3 CPT: 25890 x2
[2022-04-21] MEDS: Lactated Ringers 1,000 ML 15 ML IV (10:55)
--- NOTE | 2022-04-21 10:55 | HP.PCM_ITS ---
History and Physical Date of Admission: 04/21/22 SOFIE SIEGEL, is a 46 F who presents to the office today for Initial consult. Sofie established with this clinic 01.14.22 with referral from her PCP. Following the of her son in 2018 she began experiencing weight gain, bloating and loose stools. She thought this was part of adjustment/mastocytosis that spread to her GI tract and did not pursue workup. [facility] ED presentation 11.28.21 for rectal pain that was worsening and included a fever. She was found to have a perianal abscess that was drained in surgery with a rectal tube placed; amoxicillin started x15 days. Diarrhea has also been an issue for several years, but just prior ED presentation she noted increased w atery movements. Stool testing performed 12.11.21 and 12.25.21 both positive for CDI. Since CDI diagnosis she has lost 15lbs. CT abd/pel 11.28.21 finding a rim-enhancing perianal abscess. Taken to surgery for drainage and tube placement. CT pel 12.11.21 showed resolution of perianal abscess. CDI testing and treatment: 12.11.21 C.Diff ag A/B and toxin positive. Lactoferrin also +. IV vancomycin administered in ED. PO flagyl 500mg [id number]. PO vancomycin not covered by insurance 12.25.21 C.Diff ag A/B and toxin positive. Vancomycin 125 Q6H 22 ROS Const Constitutional: No fatigue, malaise, night sweats, weight change, sleep problems, abnormal sleep pattern or change in appetite ENT ENT: No difficulty swallowing, hoarseness or sore throat Cardio Cardiology: No chest pain at rest Gastro GI: No abdominal pain, belching, change in bowel habits, change in stool character, coffee ground emesis, constipation, cramping, heartburn, difficulty swallowing, feeling full early, excessive flatus, incontinent of stools, Vomiting blood/hematemesis, Blood in stool, loose stools, Black,tarry stools, nausea/dyspepsia, pain with swallowing, vomiting or other Musc Musculoskeletal: No joint pain Skin Skin: No yellowing of the eye or itchy eyes Neuro Neurology: No behavioral changes Psych Psychiatric: No abnormal sleep pattern, No anxiety, No behavioral changes, No change in appetite and No depression Endo Endocrine: No fatigue or weight change Aller/Imm Allergy/Immunologic: No itchy eyes Manish/Lymp Hematologic/Lymphatic: No easy bleeding or easy bruising Exam Const General: cooperative and comfortable Nutritional Appearance: average body habitus and well nourished [facility] Head: normal to inspection Ears: hearing grossly normal bilaterally Nose: external nose normal Face and sinus: normal facial exam Mouth: oral mucosae normal Throat: posterior oropharynx normal Eyes General: appearance normal, both eyes and all related structures Neck Neck: normal visual inspection Chest Chest palpation & inspection: normal inspection of the chest and normal palpation of entire chest wall Resp Effort & Inspection: normal respiratory effort Auscultation: Bilateral: Clear to Auscultation Cardio Palpation: normal PMI Rate: regular rate Rhythm: regular rhythm GI Inspection: normal to inspection Auscultation: normal bowel sounds Percussion: normal to percussion Palpation: no hepatosplenomegaly Skin General: no rashes or lesions noted Neuro General: patient alert Extrem General: normal to inspection Psych Affect: normal affect Quality Reporting Tobacco Screening ([facility]) Smoking Status: Former smoker Assessment and Plan Assessment and Plan (1) Non-specific colitis: ? ? ? Orders:?Orders: ? Comprehensive Metabolic Profil Today ? ? ? CRP Today ? ? ? CBC W/Diff, Automated Today ? ? ? Erythrocyte Sed Rate Today ? ? ? ALICJA Comprehensive Panel Today ?A ? ? Calprotectin, Stool Today ? ? ? Ova and Parasites [id number] Today ? ? ? CDIFF (PCR) Today ? ? ? ENTERIC PATHOGEN PANEL STOOL Today ? ? ? Stool Lactoferrin/WBC Today ? ? ? ANCA Today ? ? ? Celiac Disease Profile Today ? ? ? Immunoglobulins G/A/M/E Today ? ? ? Giardia Lamblia, Stool EIA Today ? ? ? PILAR + Protein Elect, Serum Today ?Plan - Dr. Morales Friend, DO: We will Recheck her stools for C. difficile. this is off of vancomycin.? She will also get stool studies to look for enteric pathogens due to the fact she is still having diarrhea, stool lactoferrin, stool fecal elastase, stool for ova and parasite.? We will also check her stools for Giardia and check her serum immunoglobulin G, A, M, MD and protein electrophoresis with immunofixation.? We will also get a CBC with differential to look for signs of eosinophilic disease given the she has had systemic mastocytosis. (2) Mastocytosis: ?Status:?Acute ?Plan - Dr. Morales Friend, DO: She will stay on antihistamine therapy.? We will assess the upper and lower GI tract for any signs of systemic mastocytosis.? This can be associated with age pylori and other allergic conditions that affect the GI tract which we will also evaluate her for. (3) Clostridioides difficile infection: ?Status:?Acute ?Plan - Dr. Morales Friend, DO: After she gives a stool sample we will put her back on vancomycin therapy because she will need a topical clindamycin cream because her previous opening her pelvic abscess has not closed and is still rather erythematous.? We will her Flagyl therapy because the Bacteroides fragilis that was on her culture was responsive to that.? 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 She is okay with this plan. Plan Details Other Medications: ?New: ? clindamycin phosphate 1% 1 applic? topical BID 60 mL 0RF ? ? ? metronidazole (Flagyl) 375 mg? PO TID 42 caps 0RF ?Refilled: ? vancomycin 125 mg? PO Q6H 56 caps 2RF ? ? I have re-examined the patient. There are no clinical changes since date of exam.
[2022-04-21 11:03] VITALS: BP 120/65; PULSE 96; RESP 18; TEMP 36.4; O2SAT 97; BMI 27.1
--- NOTE | 2022-04-21 12:10 | OP.EGD_ITS ---
Patient Name: Marni Morelos Procedure Date: 04/21/2022 11:23 AM Date of : 1975 Age: 46 Procedure: Upper GI endoscopy Indications: Epigastric abdominal pain Providers: Andrew Sánchez DO Medicines: Monitored Anesthesia Care Patient Profile: This is a 46 year old female. Refer to note in patient chart for documentation of history and physical. Patient has symptoms of chronic epigastric abdominal pain. Complications: No immediate complications. Procedure: Pre-Anesthesia Assessment: - Prior to the procedure, a History and Physical was performed, and patient medications and allergies were reviewed. The risks and benefits of the procedure and the sedation options and risks were discussed with the patient. All questions were answered and informed consent was obtained. Patient identification and proposed procedure were verified by the physician in the pre-procedure area. Mental Status Examination: alert and oriented. Airway Examination: normal oropharyngeal airway and neck mobility. Respiratory Examination: clear to auscultation. CV Examination: normal. Prophylactic Antibiotics: The patient does not require prophylactic antibiotics. Prior Anticoagulants: The patient has taken no previous anticoagulant or antiplatelet agents. After reviewing the risks and benefits, the patient was deemed in satisfactory condition to undergo the procedure. The anesthesia plan was to use moderate sedation / analgesia (conscious sedation). Immediately prior to administration of medications, the patient was re-assessed for adequacy to receive sedatives. The heart rate, respiratory rate, oxygen saturations, blood pressure, adequacy of pulmonary ventilation, and response to care were monitored throughout the procedure. The physical status of the patient was re-assessed after the procedure. After obtaining informed consent, the endoscope was passed under direct vision. Throughout the procedure, the patient's blood pressure, pulse, and oxygen saturations were monitored continuously. The pediatric colonoscope was introduced through the mouth, and advanced to the second part of duodenum. The upper GI endoscopy was accomplished without difficulty. The patient tolerated the procedure well. Moderate Sedation: Moderate (conscious) sedation was personally administered by an anesthesia professional. The following parameters were monitored: oxygen saturation, heart rate, blood pressure, respiratory rate, EKG, adequacy of pulmonary ventilation, and response to care. Total physician intraservice time was 15 minutes. Scope In: 11:41:37 AM Scope Out: 11:46:23 AM Total Procedure Duration Time 0 hours 4 minutes 46 seconds Findings: The exam of the esophagus was otherwise normal. The Z-line was irregular and was found 37 cm from the incisors. Biopsies were taken with a cold forceps for histology. Verification of patient identification for the specimen was done. Estimated blood loss was minimal. A small hiatal hernia was present. No gross lesions were noted in the second portion of the duodenum. Biopsies were taken with a cold forceps for histology. Verification of patient identification for the specimen was done. Estimated blood loss was minimal. Impression: - Z-line irregular, 37 cm from the incisors. Biopsied. - Small hiatal hernia. - No gross lesions in the second portion of the duodenum. Biopsied. Recommendation: - Written discharge instructions were provided to the patient. - The signs and symptoms of potential delayed complications were discussed with the patient. - Patient has a contact number available for emergencies. - Return to normal activities tomorrow. - Resume previous diet. - Continue present medications. - Await pathology results. - Repeat upper endoscopy for surveillance. Procedure Code(s): --- Professional --- 17493, Esophagogastroduodenoscopy, flexible, transoral; with biopsy, single or multiple CPT copyright 2017 [employer]. All rights reserved. The codes documented in this report are preliminary and upon trucker hand review may be revised to meet current compliance requirements. Andrew Sánchez DO 04/21/2022 12:10:37 PM This report has been signed electronically. Number of Addenda: 1 Note Initiated On: 04/21/2022 11:23 AM Addendum Number: 1 Addendum Date: 05/27/2022 5:57:42 AM MAC was used as sedation for this procedure. Andrew Sánchez DO 05/27/2022 5:57:51 AM This report has been signed electronically.
[2022-04-21 12:11] VITALS: BP 120/65; BP 96/75; PULSE 79; RESP 18; TEMP 36.4; O2SAT 98
--- NOTE | 2022-04-21 12:11 | OP.CCLET_ITS ---
05/27/2022 Tomy Martel MD [address] [place] [address] [place] [address] Re : Upper GI endoscopy procedure for Marni Morelos Dear Dr. Martel This procedure was performed on Thursday, April 21, 2022. My impressions and recommendations are as follows: Impressions : - Z-line irregular, 37 cm from the incisors. Biopsied. - Small hiatal hernia. - No gross lesions in the second portion of the duodenum. Biopsied. Recommendations : - Written discharge instructions were provided to the patient. - The signs and symptoms of potential delayed complications were discussed with the patient. - Patient has a contact number available for emergencies. - Return to normal activities tomorrow. - Resume previous diet. - Continue present medications. - Await pathology results. - Repeat upper endoscopy for surveillance. My findings are described in the full procedure note, which is enclosed. If I can be of further assistance, please feel free to contact me at . Sincerely, Andrew Sánchez, 04/21/2022 12:10:37 PM This report has been signed electronically.
[2022-04-21 12:15] VITALS: BP 101/60; BP 120/65; PULSE 83; RESP 18; O2SAT 100
--- NOTE | 2022-04-21 12:16 | OP.COLON_ITS ---
Patient Name: Marni Morelos Procedure Date: 04/21/2022 11:46 AM Date of : 1975 Age: 46 Procedure: Colonoscopy Indications: Chronic diarrhea, Clinically significant diarrhea of unexplained origin Providers: Andrew Sánchez DO Medicines: Monitored Anesthesia Care Patient Profile: This is a 46 year old female. Refer to note in patient chart for documentation of history and physical. Patient has symptoms of chronic epigastric abdominal pain. Last Colonoscopy: date unknown. Unable to locate last colonoscopy report. Complications: No immediate complications. Procedure: Pre-Anesthesia Assessment: - Prior to the procedure, a History and Physical was performed, and patient medications and allergies were reviewed. The risks and benefits of the procedure and the sedation options and risks were discussed with the patient. All questions were answered and informed consent was obtained. Patient identification and proposed procedure were verified by the physician in the pre-procedure area. Mental Status Examination: alert and oriented. Airway Examination: normal oropharyngeal airway and neck mobility. Respiratory Examination: clear to auscultation. CV Examination: normal. Prophylactic Antibiotics: The patient does not require prophylactic antibiotics. Prior Anticoagulants: The patient has taken no previous anticoagulant or antiplatelet agents. After reviewing the risks and benefits, the patient was deemed in satisfactory condition to undergo the procedure. The anesthesia plan was to use moderate sedation / analgesia (conscious sedation). Immediately prior to administration of medications, the patient was re-assessed for adequacy to receive sedatives. The heart rate, respiratory rate, oxygen saturations, blood pressure, adequacy of pulmonary ventilation, and response to care were monitored throughout the procedure. The physical status of the patient was re-assessed after the procedure. After I obtained informed consent, the scope was passed under direct vision. Throughout the procedure, the patient's blood pressure, pulse, and oxygen saturations were monitored continuously. The colonoscope was introduced through the anus and advanced to the terminal ileum. The colonoscopy was performed without difficulty. The patient tolerated the procedure well. The quality of the bowel preparation was good. Scope In: 11:49:50 AM Scope Withdrawal Time 0 hours 10 minutes 37 seconds Scope Out: 12:05:01 PM Total Procedure Duration Time 0 hours 15 minutes 11 seconds Findings: The perianal and digital rectal examinations were normal. The colon (entire examined portion) appeared normal. The exam was otherwise without abnormality on direct and retroflexion views. Impression: - The entire examined colon is normal. - The examination was otherwise normal on direct and retroflexion views. - No specimens collected. Recommendation: - Discharge patient to home. - Resume previous diet. - Continue present medications. - Repeat colonoscopy in 5 years for surveillance. Procedure Code(s): --- Professional --- 63499, Colonoscopy, flexible; diagnostic, including collection of specimen(s) by brushing or washing, when performed (separate procedure) CPT copyright 2017 [employer]. All rights reserved. The codes documented in this report are preliminary and upon bag inspector review may be revised to meet current compliance requirements. Andrew Sánchez DO 04/21/2022 12:15:41 PM This report has been signed electronically. Number of Addenda: 1 Note Initiated On: 04/21/2022 11:46 AM Addendum Number: 1 Addendum Date: 05/27/2022 5:57:58 AM MAC was used as sedation for this procedure. Andrew Sánchez DO 05/27/2022 5:58:05 AM This report has been signed electronically.
--- NOTE | 2022-04-21 12:17 | OP.CCLET_ITS ---
05/27/2022 Tomy Martel MD [address] [place] [address] [place] [address] Re : Colonoscopy procedure for Marni Morelos Dear Dr. Martel This procedure was performed on Thursday, April 21, 2022. My impressions and recommendations are as follows: Impressions : - The entire examined colon is normal. - The examination was otherwise normal on direct and retroflexion views. - No specimens collected. Recommendations : - Discharge patient to home. - Resume previous diet. - Continue present medications. - Repeat colonoscopy in 5 years for surveillance. My findings are described in the full procedure note, which is enclosed. If I can be of further assistance, please feel free to contact me at . Sincerely, Andrew Friend, 04/21/2022 12:15:41 PM This report has been signed electronically.
[2022-04-21 12:24] VITALS: BP 103/64; BP 120/65; PULSE 89; RESP 18; O2SAT 100
[2022-04-21 12:25] VITALS: BP 104/82; BP 120/65; PULSE 87; RESP 18; TEMP 36.4; O2SAT 100
[2022-04-21 12:47] VITALS: BP 120/65
== END 2022-04-21 12:59 | disposition home or self-care (01) ==
LOC: EN 10:43 → AC 10:45
PROVIDERS: PCP Internal Medicine; Referring Provider Internal Medicine; Visit Provider Internal Medicine Gastroenterology
PROC: 0DJD8ZZ Inspection of Lower Intestinal Tract, Via Natural or Artificial Opening Endoscopic (ICD-10-PCS; CPT 45378; principal; 2022-04-21 11:25)
DX: K44.9 Diaphragmatic hernia without obstruction or gangrene (principal); K21.00 Gastro-esophageal reflux disease with esophagitis, without bleeding; J45.909 Unspecified asthma, uncomplicated; Z87.891 Personal history of nicotine dependence; Z79.899 Other long term (current) drug therapy
CPT/HCPCS: 45378; 43239; 88305; J7120; J2405

== ENCOUNTER → 2022-05-13 | Outpatient (CLI) | payer OTHER, MEDICAID, SELFPAY ==
--- NOTE | 2022-05-13 11:18 | RAD_ITS ---
INDICATION: pre cath EXAMINATION/TECHNIQUE: X-RAY - XR Chest 2 Views COMPARISON: 09/17/2019. FINDINGS: LINES/DEVICES: None. LUNGS: No consolidation, edema or effusion. No pneumothorax. MEDIASTINUM AND CARDIOVASCULAR STRUCTURES: Cardiac silhouette not enlarged. Central airways and mediastinal contour are unremarkable. BONES AND SOFT TISSUES: Unremarkable. RAD/Chest PA and Lateral IMPRESSION: No radiographic evidence of acute cardiopulmonary disease. Electronically Signed: Stewart Hardy MD at 14:26 EDT ,
--- NOTE | 2022-05-13 11:18 | ECHOD_ITS ---
Reason For Study: ARRYTHMIA Procedure This was a 2D Doppler, Color Flow transthoracic echocardiogram. Exam performed in department. Left Ventricle Normal LV size. Left ventricular systolic function is normal. The estimated ejection fraction is 65 %. Transmitral doppler flow suggestive of impaired relaxation of left ventricle. No regional wall motion abnormalities noted. Right Ventricle Normal RV size. Normal systolic function. Atria Normal left atrium. Normal right atrium. No doppler evidence for ASD. Mitral Valve There is no mitral annular calcification. Mild diffuse mitral valve thickening. Mild mitral valve prolapse. Mild (1+) eccentric mitral valve insufficiency. Tricuspid Valve Normal tricuspid valve. Mild tricuspid valve insufficiency. Unable to estimate RV systolic pressure due to insufficient tricuspid regurgitant envelope. Aortic Valve Trisinus/trileaflet aortic valve. Mild focal aortic valve thickening. Pulmonic Valve The pulmonic valve is not well visualized. Trivial pulmonic valve insufficiency. Great Vessels Normal sized aortic root. Pericardium/Pleural No pericardial effusion. MMode/2D Measurements & Calculations RVDd: 3.1 cm Ao root diam: 2.9 cm LAV(MOD-sp4): 29.9 ml LVAd ap4: 24.7 cm2 SV(MOD-sp4): 35.4 ml SV(sp4-el): 37.5 ml LVLd ap4: 7.7 cm EDV(MOD-sp4): 65.8 ml EDV(sp4-el): 67.1 ml LVAs ap4: 14.9 cm2 LVLs ap4: 6.4 cm ESV(MOD-sp4): 30.4 ml ESV(sp4-el): 29.6 ml EF(MOD-sp4): 53.8 % EF(sp4-el): 55.9 % LA A4 area: 14.0 cm2 LA dimension(2D): 3.4 cm RA A4 area: 11.1 cm2 Time Measurements MV dec time: 0.15 sec Doppler Measurements & Calculations MV E max devan: 60.4 cm/sec Lat Peak E' Devan: 14.6 cm/sec Med Peak E' Devan: 6.8 cm/sec MV A max devan: 81.1 cm/sec E/E' lat: 4.1 E/E' med: 8.9 MV E/A: 0.75 MV V2 max: 80.0 cm/sec Ao V2 max: 152.0 cm/sec MV max P.6 mmHg MV dec slope: 454.3 cm/sec2 Ao max P.3 mmHg MV V2 mean: 49.9 cm/sec Ao V2 mean: 112.5 cm/sec MV mean P.1 mmHg Ao mean P.6 mmHg MV V2 VTI: 15.0 cm Ao V2 VTI: 26.3 cm LV V1 max: 140.9 cm/sec PA V2 max: 82.4 cm/sec LV V1 max P.9 mmHg PA max PG (full): -0.27 mmHg LV V1 mean P.3 mmHg PA V2 mean: 59.7 cm/sec LV V1 mean: 97.3 cm/sec PA mean PG (full): -0.16 mmHg LV V1 VTI: 22.8 cm ECHO/Echo Complete Interpretation Summary Left ventricular systolic function is normal. The estimated ejection fraction is 65 %. Mild diffuse mitral valve thickening. Mild mitral valve prolapse. Mild (1+) eccentric mitral valve insufficiency. Mild tricuspid valve insufficiency. Mild focal aortic valve thickening. Trivial pulmonic valve insufficiency. Unable to estimate RV systolic pressure due to insufficient tricuspid regurgita nt envelope. Transmitral doppler flow suggestive of impaired relaxation of left ventricle Ordering Physician: Dustin Su Referring Physician: Dustin Su Performed By: Nerissa Dela Cruz RCS
[2022-05-13 12:54] LABS: Absolute Lymphocyte Count 1.29 X10^3/uL (0.83-4.51); Absolute Neutrophil Count 6.2 X10^3/uL (2.0-7.7); Basophil# 0.03 X10^3/uL; Basophil% 0.4 % (0-1); Eosinophil# 0.05 X10^3/uL; Eosinophils% 0.6 % (0-5); Hematocrit 42.2 % (37-47); Hemoglobin 13.7 g/dL (12.0-15.0); Lymphocyte # 1.29 X10^3/ul (0.83-4.51); Lymphocyte % 15.7 % (19-41); Mean Corp Hgb Conc 32.5 g/dL (32-36); Mean Corpuscular Hgb 32.2 pg (27.0-32.0); Mean Corpuscular Volume 99.1 fL (81-99); Mean Platelet Vol. 9.9 fl (6.2-12.0); Monocyte% 7.3 % (0-10); NRBC Flagged by Analyzer 0 % (0-5); Neutrophil # 6.22 X10^3/uL (2.7-7.7); Neutrophil % 75.6 % (47-70); Platelet Count 359 K/mm3 (150-450); RBC Distribution Width CV 12.5 % (11.6-14.6); RBC Distribution Width SD 45.3 fl (35.1-43.9); Red Blood Count 4.26 M/mm3 (4.2-5.4); White Blood Count 8.2 K/mm3 (4.4-11.0)
[2022-05-13 12:57] LABS: Partial Thromboplast Time 30.3 Seconds (24.1-36.2); Prothrombin Time (Protime)PT. 12.6 SECONDS (11.7-14.9)
[2022-05-13 13:20] LABS: Anion Gap 4 (5-15); BUN 12 mg/dL (7-18); BUN/Creat Ratio 14.7 RATIO (10-20); Calcium,Total 9.3 mg/dL (8.5-10.1); Chloride 105 mmol/L (98-107); Creatinine, Serum 0.82 mg/dL (0.55-1.02); EST Glomerular Filtration Rate 80 mL/min (>60); Est Glom Filt Rate - Afr Amer 97 mL/min (>60); Glucose 100 mg/dL (74-106); Potassium 4.4 mmol/L (3.5-5.1); Sodium Level 138 mmol/L (136-145)
== END | disposition home or self-care (01) ==
LOC: CVS 11:14
PROVIDERS: Physician Assistant Medical; PCP Internal Medicine; Referring Provider Internal Medicine Cardiovascular Disease; Visit Provider Internal Medicine Cardiovascular Disease
DX: I47.2 Ventricular tachycardia (principal); I34.1 Nonrheumatic mitral (valve) prolapse; Z20.822 Contact with and (suspected) exposure to COVID-19
CPT/HCPCS: 36415; 71046; 80048; 85025; 85610; 85730; 87426; 93306; C9803

== ENCOUNTER 2022-05-25 08:25 | Day surgery (SDC) | payer OTHER, MEDICAID, SELFPAY ==
[2022-05-17 07:53] VITALS: BMI 27.9
--- NOTE | 2022-05-17 07:57 | HP.PCM_ITS ---
History and Physical Date of Admission: 05/18/22 [facility] [address] [place], [place] [address] OFFICE VISIT Date of Service:? 04/01/22 MR#: [id number] Acct: [id number] Name:SOFIE PRINGLE Rep #: [id number] : 1975 ?Provider: Dr. Dustin Su MD Age/Sex:? 46/F Location: [facility] [place].[facility] Status: Signed HPI [facility] History of Present Illness Details: This is a 46-year-old white female who presents today for outpatient cardiovascular concerns based upon a history of underlying mitral valve prolapse with palpitations, near-syncope/syncope, undergoing gastrointestinal evaluation for C. difficile toxin (recently tested negative).? She states she has had a longstanding history of being told she has mitral valve prolapse dating back to when she believes she was a teenager.? She states she was tried on low-dose beta-adam therapy at that time without atenolol/Tenormin.? She believes she benefited to some degree.? Over time this medication was discontinued. Over time she has carried the diagnosis of mitral valve prolapse.? She has noted palpitations.? She states she had episodes of near syncope and syncope.? These were more frequent when she was a teenager and/or potentially in her 20s.? She states there was a period of time where they were not bothering her.? She notes that they have resurfaced. She has had intermittent chest discomforts.? There is been no orthopnea or PND suspicious for classic acute CHF or pulmonary edema.? There has been no ongoing peripheral pitting edema. She did undergo evaluation in August of this year with a transthoracic echocardiogram as well as an exercise tolerance test/imaging study.? The results are noted below.? They have been reviewed with her. She states she is also undergoing evaluation for gastrointestinal disease.? She was diagnosed with C. difficile toxin.? She was treated.? She states she has now tested negative.? During this time she also underwent evaluation for connective tissue disorders with a variety of laboratory work.? She states she was considered negative for diagnoses such as lupus, etc. In the office today she had an ECG.? She was noted to be in sinus rhythm with no acute ECG changes. Intake Vital Signs ? 12/11/2213:05 03/03/2211:34 04/01/2213:39 04/01/2213:42 Height 5 ft 5 in 5 ft 5 in 5 ft 5 in 5 ft 5 in Weight: ? ? ? 168 lb 5 oz BMI ? ? ? 28.0 BP ? ? ? 134/80 H Blood Pressure Location ? ? ? Lt brachial Position ? ? ? Sitting Respiration ? ? ? 16 Pulse ? ? ? 84 Pulse Source ? ? ? Auscultation Intake Visit Reasons:?MVP/REF. 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 Required: No Accompanied by: Self Allergies latex Allergy (Verified 04/01/22 13:43) Othermorphine Allergy (Verified 04/01/22 13:43) AnaphylaxisNSAIDS (Non-Steroidal Anti-Inflamma Allergy (Verified 04/01/22 13:43) Hivescelecoxib [From Celebrex] Adverse Reaction (Verified 04/01/22 13:43) Otherfood dye Allergy (Uncoded 04/01/22 13:43) HivesNARCOTICS Adverse Reaction (Uncoded 04/01/22 13:43) HYPERSENSTIVE TO NARCOTICS Medications epinephrine 0.3 mg/0.3 mL injection, auto-injector 0.3 mg IM PRN PRN Anaphylaxis 09/04/18 [History Confirmed 04/01/22] albuterol sulfate 90 mcg/actuation aerosol inhaler 1 - 2 puff inhalation Q4H PRN PRN Sob &/Or Wheezing 06/21/19 [History Confirmed 04/01/22] famotidine 20 mg tablet (Pepcid) 20 mg PO DAILY 02/19/21 [History Confirmed 04/01/22] diphenhydramine HCl 25 mg capsule (Benadryl) 25 mg PO QHS PRN Sleep 12/10/21 [History Confirmed 04/01/22] ascorbic acid (vitamin C) 1,000 mg tablet (Vitamin C) 1 g PO DAILY 03/01/22 [History Confirmed 04/01/22] calcium carb-ergocalciferol (vit D2) 600 mg calcium-200 unit tablet 2 tab PO QHS 03/01/22 [History Confirmed 04/01/22] ibuprofen 600 mg tablet 600 mg PO Q6H PRN pain #20 tabs 03/03/22 [Rx Confirmed 04/01/22] cetirizine 10 mg capsule (Zyrtec) 30 mg PO DAILY 04/01/22 [History Confirmed 04/01/22] lactobacillus combination no.9 4 billion cell capsule (Adult 50 Plus Probiotic) PO 04/01/22 [History Confirmed 04/01/22] PFSH Medical History? Allergic contact urticaria Anemia Arthritis Asthma Blackout Cardiology follow-up encounter Chest pain on respiration Chronic diarrhea Clostridioides difficile infection Cutaneous mastocytosis Dietary restriction Fatigue Former smoker Frequent headaches Gastric reflux Hay fever Heart disease History of Helicobacter pylori infection History of hemorrhoids History of irregular heartbeat History of stress test History of ulceration Hx of echocardiogram Injury of head and neck Knee pain Limb weakness Mastocytosis Mitral valve prolapse Nonrheumatic mitral (valve) prolapse Oral candidiasis Rectal abscess Right carpal tunnel syndrome Shortness of breath on exertion Urticaria Uterine fibroid Wears glasses Surgical History? H/O bilateral salpingectomy History of History of hysteroscopy History of incision and drainage History of tonsillectomy and adenoidectomy Hx of appendectomy Hx of hysterectomy Family History?(Updated 04/01/22 @ 14:08 by Yolande Garner) Grandfather Heart disease Myocardial infarction,? Onset Age: 40Mother MelanomaFather Melanoma Prostate cancer CAD (coronary artery disease) Presence of stent in coronary arterySister MelanomaUncle CAD (coronary artery disease) Presence of stent in coronary arteryUnknown Myocardial infarction,? Onset Age: 46 ?? ? [id number] CVA (cerebral vascular accident),? Onset Age: 47 ?? ? [id number] Arthritis Hypertension Social History? Smoking Status:? Former smoker Tobacco: How many years used:? 10 alcohol intake:? never substance use type:? does not use caffeine:? Yes Type: coffee Number of servings: 4 what type of physical activity do you participate in:? none ROS Const Const: Positive for fatigue (exhausted all of the time) and weight gain; Negative for weakness, body ache, fever(s), headache(s), chills, frequent falls, night sweats, daytime sleepiness, difficulty sleeping, excessive sweating, weight loss, increased appetite, poor appetite, anorexia or other Eyes Eyes: Negative for blurry vision or double vision ENT ENT: Positive for dizziness (sensation of ) and balance problems; Negative for headache(s) Cardio Chest Pain: Yes Character: other (knife grinding) Onset: at rest and exercise Location: mid sternal and other (left side under axillary shooting/sharp pain) Duration: minutes (30 minutes plus) Relieving: rest, positional (change positions) and other (drinking water) Palpitations: Yes (daily; HR 120's ) feels like its: fast Edema: Bilateral (hands/UE) Muscle aches with walking: None Resp Respiratory: Positive for SOB with activity (increased ), SOB at rest (new), SOB orthopnea\SOB lying down (lays on side; stacks pillows) and wheezing (when laying down HX asthma); Negative for Cough, Coughing up blood/hemoptysis, chest congestion, pain on inspiration, snoring, stridor, crackles, paroxysmal nocturnal dyspnea or other Musc Musc: Positive for balance problems; Negative for muscle aches/ myalgia, muscle weakness or joint pain Neuro Neuro: Positive for dizziness (sensation of ), lightheadedness (random), near syncope and syncope (last epsiode x1 month ago); Negative for orthostatic symptoms, frequent falls, headache(s), weakness, confusion, memory loss, restless legs, blurry vision, double vision, vertigo, seizures, lack of coordination or other Endo Endo: Positive for fatigue (exhausted all of the time); Negative for excessive sweating Cardiology Exam Const Appearance: cooperative, healthy appearing, comfortable, no acute distress, well developed and well groomed Nutritional Appearance: overweight Orientation: alert, awake and oriented x3 Head Head: normal to inspection, normocephalic and atraumatic Ears: hearing grossly normal bilaterally Nose: external nose normal Face and Sinus: face symmetric Eyes Eyelids: eyelids normal Conjunctivae: conjunctivae normal Pupils: PERRL EOM: EOM intact bilaterally Neck Neck: normal visual inspection and full ROM Carotids: normal carotid upstroke Chest Chest inspection: normal inspection of the chest, symmetric chest movement and normal respiratory effort Auscultation: Bilateral: Clear to Auscultation Cardio Palpation: normal PMI Rate: regular rate Rhythm: regular rhythm Heart sounds: S1 normal, S2 normal and mid systolic click GI GI: normal to inspection and soft Neuro General: patient alert, patient awake, patient oriented x3, gait normal and moves all extremities Skin Skin: no rashes or lesions noted Extremities Pulses: Normal: Right Radial Pulse and Left Radial Pulse Lower Extremity Edema: None: Bilateral Psych Psychological: normal affect Supplemental Info Supplemental Information Echocardiogram: 09-14-2021 Interpretation Summary Normal LV size. Left ventricular systolic function is normal. The estimated ejection fraction is 60 %. Stage 1 diastolic dysfunction. Posterior leaflet mitral valve prolapse. Mild (1+) eccentric mitral valve insufficiency. Stress Test Report Exercise myocardial perfusion stress test. 45-year-old lady with a history of chest pain. Stress protocol: Resting EKG demonstrates normal sinus rhythm with a rate of 80 bpm normal intervals are noted resting blood pressure is 122/70 mmHg.? The patient exercised according to regular Neville protocol for total duration of 5 minutes and 30 seconds.? Patient completed 2 minutes and 30 seconds of stage II of the Neville protocol the maximum heart rate attained was 162 bpm which was 92% of max impact at heart rate the maximum workload was 7 metabolic equivalents.? Patient maintained sinus rhythm throughout the recording with 2 episodes of ventricular couplet activity.? During recovery there were frequent premature ventricular complexes noted appear to have an inferior axis.? At rest there were no ST or T wave changes noted to suggest ischemia.? The test was terminated due to dyspnea.? The peak blood pressure was 140/70 mmHg.? With a rate-pressure product of 22,680. Myocardial perfusion protocol. 11.1 mCi of technetium 99m sestamibi was injected at rest.? The patient exercised according to regular Neville protocol for total duration of 5-1/2 minutes and at peak exercise 32.6 mCi of technetium 99m sestamibi was injected stress images were obtained stress and rest images were reconstructed and compared in the short axis vertical long and horizontal long axis.? Gated images were also obtained per Perfusion SPECT analysis: Review of the stress images demonstrate normal uptake of tracer noted in all areas of the myocardium.? The resting images similarly demonstrate normal uptake of tracer noted in all areas of the myocardium.? No areas of reversibility are noted to suggest ischemia and no previous infarct is noted. Gated SPECT analysis: The gated ejection fraction is 76%. Conclusion: Normal exercise myocardial perfusion stress test at a moderate workload. Preserved ejection fraction. ? Labs: ?? ? No Data to Display Diagnostics: ?? ? Electrocardiogram ? Echocardiogram ? Stress Test NM ? Stress Test ? Chest X-Ray ? Pulmonary: ?? ? No Data to Display Assessment and Plan Assessment and Plan (1) Nonrheumatic mitral (valve) prolapse: ?Status:?Acute ?Comment: Posterior leaflet MVP, mild insufficiency per ECHO 09/14/21 ?Plan: She does have a history of MVP. This is been documented by previous noninvasive studies. Is unclear as to whether or not this is associated with her concerns of palpitations, etc. (2) Palpitations: ?Status:?Acute ?Plan: She does have a history of palpitations.? She states they occur frequently but not necessarily every day or every other day. An attempt will be made to correlate her symptoms with her underlying rate and rhythm by asking her to wear a 14-day ambulatory event monitor. Depending upon the findings she may or may not need further studies and/or medical management. (3) Syncope: ?Status:?Acute ?Plan: She has a history remotely and recently of syncope. There are concerns that this may be related to an underlying autonomic dysfunction such as a vasovagal arm neurocardiogenic mediated type syncope. She will undergo the ambulatory event monitor to evaluate for any obvious rhythm disturbances that may be a contributing factor.? However, it was felt reasonable that she undergo a tilt table study to assess her for the aforementioned concerns. ? ? ? Orders: Orders 12 Lead EKG performed by BMS Today I34.1 - Nonrheumatic mitral (valve) prolapse ? 30 Day Event Recorder Preventi Today I34 .1 - Nonrheumatic mitral (valve) prolapse, R00.2 - Palpitations, R55 - Syncope and collapse ? Tilt Table Test Today I34.1 - Nonrheumatic mitral (valve) prolapse, R00.2 - Palpitations, R55 - Syncope and collapse ? Plan Details Additional Comments: In the meantime she states she does attempt to increase her hydration, she states she does wear support or compression stockings when she is going to be up for long periods of time, and she does salt her food.? These appear to be reasonable efforts especially if she does have underlying vagally mediated type symptoms and findings. Depending upon her overall findings, with respect to any type of vagally mediated events, and depending upon her blood pressure, she may also need to be considered for additional medical therapy such as fludrocortisone/Florinef or ProAmatine/midodrine. The above was discussed with her and she was agreeable to the aforementioned evaluation and care plan. Thank you for allowing me to participate in the care of your patient.? Please don't hesitate to call if any issues arise. This note was generated using a voice recognition system and there may be incorrect words, spelling or punctuation that were not noted when reviewing the office note prior to saving. Follow Up: ? ? 6 Weeks (PFM ) COVID (Procedure Consent) Procedure Criteria Procedure Criteria: Yes Elective The surgeon/proceduralist and patient have discussed in detail the risk of exposure to and/or potential harm posed by the COVID-19 virus with having a surgery/procedure at this time versus the risk of? delaying the surgery /procedure. It is not possible to know either the risk of delaying the surgery or procedure or chance of getting an infection with perfect accuracy, but a joint decision was made between the patient and the surgeon/proceduralist ?to proceed at this time with the scheduled surgery/procedure as indicated on the consent form. Coding Level of Care Code Off vis,new,level 4 Diagnoses Nonrheumatic mitral (valve) prolapse? I34.1 Palpitations? R00.2 Syncope? R55 Coding Level of Care Code Off vis,new,level 4 Diagnoses Nonrheumatic mitral (valve) prolapse? I34.1 Palpitations? R00.2 Syncope? R55 04/01/22 1386 <Electronically signed by Dustin Su MD> Date Dustin Su MD Cosigner Signature: Date (if applicable) CC:? Dr. Tomy Martel MD ~ Assessment & Plan Addt'l Comments Addendum: The patient has undergone additional evaluation with a transthoracic echocardiogram. This was performed on 05-13-2022. The results are noted below. Interpretation Summary Left ventricular systolic function is normal. The estimated ejection fraction is 65 %. Mild diffuse mitral valve thickening. Mild mitral valve prolapse. Mild (1+) eccentric mitral valve insufficiency. Mild tricuspid valve insufficiency. Mild focal aortic valve thickening. Trivial pulmonic valve insufficiency. Unable to estimate RV systolic pressure due to insufficient tricuspid regurgitant envelope. Transmitral doppler flow suggestive of impaired relaxation of left ventricle The patient has been undergoing evaluation with a 30-day ambulatory event monitor. Based upon the preliminary evaluation there was concerns of nonsustained ventricular tachycardia. The patient's case was reviewed with respect to her history and objective findings. Based upon concerns of her ventricular dysrhythmia it was felt reasonable to alter her original care plans from another exercise tolerance test/imaging study to a diagnostic cardiac catheterization. The procedure and risks have been discussed with the patient. She was agreeable to this approach. In the interim the patient was also diagnosed with COVID-19 subsequently followed by bronchitis. Thus, her previously planned evaluation with diagnostic cardiac catheterization was placed on temporary hold. She now presents to proceed with her previously planned study. As noted above the procedure and risk were discussed with her. She was agreeable to this approach. Otherwise, there appears to be no additional changes appreciated at this time This note was generated using a voice recognition system and there may be incorrect words, spelling or punctuation that were not noted when reviewing the office note prior to saving.
--- NOTE | 2022-05-25 10:42 | CL.D_ITS ---
Patient Name: SOFIE SIEGEL Study Date: 05/25/2022 Performing: Dustin Su MD Ht: 65 inches 165.1 cm : 1975 Wt: 167.99 lbs 76.2 kg Age: 46 Gender: female BSA: 1.84 PROCEDURE(S) PERFORMED DC02-(20036)[facility] CLINICAL PROFILE AND INDICATIONS Indications: Cardiac Arrythmia, Syncope Heart Failure: None Stress/Imaging Date: 09/14/2021tress Test with SPECT MPI: Negative Angina Classification Anginal Classification w/in 2 Weeks: No symptoms CAD Presentations: Other: Palpitations; Syncope CONCLUSIONS Normal Left Ventricular End Diastolic Pressure Normal coronary arteries RECOMMENDATIONS Risk factor modification Medical therapy DESCRIPTION OF PROCEDURE The patient arrived to the procedure lab. The risks and benefits of the procedure as well as a full description of our services here and current unavailability of surgical backup were fully explained to the patient and/or their significant other prior to the catheterization. The Timeout was completed, verifying the correct patient and procedure. The patient's procedural site was prepped and draped in the usual fashion. Local anesthetic was given subcutaneously to right radial region with Lidocaine 2%. Using a modified Seldinger technique, arterial access was obtained via the right radial artery, a 6Fr sheath was inserted. Left Coronary Artery selective angiography was performed in multiple views using a 5 Fr. 4.0 [place] catheter. Right Coronary Artery selective angiography was then performed in multiple views using a 5 Fr. 4.0 [place] catheter. LV to AO pullback pressures were then recorded.The arterial sheath was pulled and a TR Band was applied for hemostasis. 10cc of air CORONARY ANGIOGRAPHY DOMINANCE: Right Dominant LEFT HEART ASSESSMENT Left Ventricular Ejection Fraction: Not assessed Normal Left Ventricular End Diastolic Pressure LVEDP: 5 mmHg LEFT MAIN: Angiographically normal LEFT ANTERIOR DESCENDING ARTERY: Angiographically normal CIRCUMFLEX ARTERY: Angiographically normal RAMUS: Angiographically normal RIGHT CORONARY ARTERY: Angiographically normal COMPLICATIONS No Complications PROCEDURE MEDICATIONS Versed 1 mg IV Versed 1 mg IV Aspirin (325mg) 1 Tabs PO 05/25/2022 08:49:19 Benadryl 50 mg IV @ 05/25/2022 10:33:32 Heparin given IA 05/25/2022 10:15:06 Verapamil 2.5mg, Ntg 100mcgs, 3000 units of Heparin given IA 05/25/2022 10:15:06 SUMMARY OF HEMODYNAMIC DATA Time AIR REST ECG 08:46:34 ECG 09:47:33 AO 110/67 (84) SA 10:16:47 LV 124/-3, 10 10:22:56 LV 111/-3, 5 10:23:02 LVp 116/-2, 6 10:23:07 AOp 143/81 (109) 10:23:12 AIR REST 10:36:08 Signed By Dustin Su MD On 05/25/2022 10:42:18 Dustin Su MD
== END 2022-05-25 12:10 | disposition home or self-care (01) ==
LOC: CLSP 08:26
PROVIDERS: PCP Internal Medicine; Referring Provider Internal Medicine Cardiovascular Disease; Visit Provider Internal Medicine Cardiovascular Disease
DX: I34.1 Nonrheumatic mitral (valve) prolapse (principal); R55 Syncope and collapse; R00.2 Palpitations; R07.9 Chest pain, unspecified; J45.909 Unspecified asthma, uncomplicated; K21.9 Gastro-esophageal reflux disease without esophagitis; M19.90 Unspecified osteoarthritis, unspecified site; Z87.891 Personal history of nicotine dependence; Z79.899 Other long term (current) drug therapy
CPT/HCPCS: 93454; 99152; 99153; J7040; Q9967; C1769; C1894

== ENCOUNTER → 2022-06-08 | Outpatient (CLI) | payer OTHER, MEDICAID, SELFPAY ==
--- NOTE | 2022-06-08 17:58 | TILTTABLE_ITS ---
Staff Staff: Marcy Petty and Tatiana Yañez Summary Protocol: 70 Degree Upright Tilt Pre Test Resting HR: 91 Pre Test Resting BP: 139/66 Minimum Test HR: 86 Maximum Test HR: 101 Minimum Test BP: 112/61 Maximum Test BP: 136/62 Reason for Test Termination: Reached Maximum Test Time Physician Tilt Table Report Patient's Physicians Primary Care Physician: Tomy Martel Psychological Anthropologist: Dustin Su Indications/Diagnosis: Dizziness/lightheadedness Procedure Comments: The patient was brought to the tilt table laboratory and laid supine on the tilt table. The patient was awake and alert and warm and dry. The baseline heart rate was 91 bpm with a baseline blood pressure 139/66 mmHg. The cardiac rhythm was normal sinus rhythm. The patient was placed in the 70 degree upright tilt table position for 30 minutes. The patient remained alert and oriented and warm and dry. The minimal heart rate was 86 bpm at initiation of the tilt with a maximal heart rate of 101 bpm and a minimal blood pressure 112/61 mmHg near the end of the tilt with a maximal blood pressure of 136/62 mmHg at the beginning of the tilt. The cardiac rhythm remained sinus rhythm. During the tilt the patient noted that her face felt flushed, her eyeballs felt hot, she felt queasy , there was slight dizziness/nausea. The patient did not lose consciousness. The patient was returned to the supine position. She remained alert and oriented and warm and dry. The concluding heart rate was 96 bpm with a concluding blood pressure 141/63 mmHg. The cardiac rhythm remained sinus rhythm. Summary: 70 degree upright tilt table study demonstrated a systolic blood pressure declined from the initiation of the tilt study to near the completion of the tilt study of 24 mmHg compatible with a systolic orthostatic blood pressure decline with no significant change with respect to the diastolic blood pressures or the heart rate. The study did reproduce symptoms of slight dizziness, however, was considered negative for near-syncope/syncope. This note was generated using a voice recognition system and there may be incorrect words, spelling or punctuation that were not noted when reviewing the office note prior to saving.
[2022-06-08 18:05] VITALS: BP 112/61; BP 136/62; BP 139/66
== END | disposition home or self-care (01) ==
LOC: CVS 09:37
PROVIDERS: PCP Internal Medicine; Referring Provider Internal Medicine Cardiovascular Disease; Visit Provider Internal Medicine Cardiovascular Disease
DX: R00.2 Palpitations (principal); I34.1 Nonrheumatic mitral (valve) prolapse; R55 Syncope and collapse
CPT/HCPCS: 93660; J7040; A4216

== ENCOUNTER → 2022-06-15 | Outpatient (CLI) | payer OTHER, MEDICAID, SELFPAY ==
--- NOTE | 2022-06-15 15:25 | RAD_ITS ---
INDICATION: Right Great toe pain. Heavy object dropped onto right first toe, swelling and bruising. EXAMINATION/TECHNIQUE: X-RAY - RIGHT FOOT XR Toes Min 2 Views COMPARISON: None. FINDINGS: SOFT TISSUES: Soft tissue swelling great toe. No radiopaque foreign body detected. BONES/JOINTS: No acute fracture or subluxation. Normal alignment. Preservation of the joint space(s). No suspicious osseous lesion observed. RAD/Toe(s) Min 2 Views IMPRESSION: Right great toe soft tissue swelling with no acute osseous injury. Electronically Signed: Albino Montez MD at 23:59 EDT ,
== END | disposition home or self-care (01) ==
LOC: MTRAD 15:23
PROVIDERS: PCP Internal Medicine; Referring Provider Physician Assistant; Visit Provider Physician Assistant
DX: S99.929A Unspecified injury of unspecified foot, initial encounter (principal); M79.674 Pain in right toe(s)
CPT/HCPCS: 73660

== ENCOUNTER 2022-06-22 06:06 | Day surgery (SDC) | payer OTHER, MEDICAID, SELFPAY ==
[2022-06-22] VITALS (8 sets, daily range): BP systolic 71–123; BP diastolic 34–64; PULSE 64–84; RESP 16–18; TEMP 36.3–36.9; O2SAT 93–100; BMI 28.2
[2022-06-22] MEDS: Lactated Ringers 1,000 ML 15 ML IV (06:47)
--- NOTE | 2022-06-22 07:30 | LES_PTH ---
PATIENT: SOFIE SIEGEL [place] [facility] [place][id number] AGE/SX: 46/F ROOM: RE06/22/[address]: Dr. Julio Conde MD : 1975 BED: DIS: 06/22/2022 SPEC #: [id number] RECD: 06/22/22 13:22 STATUS: JAMARI DELILAH #: [id number] CHICO: 06/22/22 07:[address]: Julio Conde DEPT: SURGICAL PATHOLOGY RECD BY: Kianna Olmedo ENTERED: 06/22/22 13:38 SP TYPE: Lesion OTHR DR: Dr. Tomy Martel MD Tissues: Perianal tissue Procedures: Special Stain Group I Surgery Specimen Level IV GMS Stain (control) HEADER OPERATION: Exam under anesthesia, excision of perianal wound PRE-OP DIAGNOSIS: Nonhealing surgical wound TISSUE SUBMITTED: Perianal skin MICROSCOPIC DIAGNOSIS Perianal skin, excision: Dermal fibrosis with associated minimal chronic inflammation. No evidence of malignancy. No evidence of fungal organisms. See comment. AM:richard 06/23/2022 COMMENT GMS stain with matched control was used in the evaluation of this case. MICROSCOPIC DESCRIPTION Slides are reviewed. GROSS DESCRIPTION Received in fixative is one container labeled with the patient's name and designated perianal skin. The specimen consists of an elongated fragment of pink-mandujano skin with attached soft tissue measuring 1.2 x 0.9 x 0.3 cm. The specimen is totally submitted in one cassette. / AM:richard 06/22/2022 TC:3 CPT: 59085, 68338
--- NOTE | 2022-06-22 07:30 | PCM.HP.BLA ---
History and Physical Date of Service:? 06/01/22 MR#: [id number] Acct: [id number] Name:? SOFIE MORELOS Rep #: [id number] : 1975 ? ? Provider: Dr. Julio Conde MD Age/Sex:? 46/F ? ? Location: [facility] Status: Signed Intake Vital Signs ? 06/01/2208:10 Height 5 ft 5 in Weight: 172 lb 4 oz BMI 28.6 BP 112/75 Blood Pressure Location Lt brachial Position Sitting Respiration 18 Pulse 89 Pulse Source Monitor Temp 97.9 F Temp Source Temporal Pulse Oximetry (%) 98 Oxygen Delivery Method room air Intake Visit Reasons:?UPDATE H&P Chief Complaint: Wound Check Workforce Management Consultant Required: No Is patient in pain?: No Allergies latex Allergy (Verified 06/01/22 08:11) Othermorphine Allergy (Verified 06/01/22 08:11) AnaphylaxisNSAIDS (Non-Steroidal Anti-Inflamma Allergy (Verified 06/01/22 08:11) Hivessilicone Allergy (Verified 06/01/22 08:11) Hivescelecoxib [From Celebrex] Adverse Reaction (Verified 06/01/22 08:11) Otherfood dye Allergy (Uncoded 06/01/22 08:11) HivesNARCOTICS Adverse Reaction (Uncoded 06/01/22 08:11) HYPERSENSTIVE TO NARCOTICS Medications epinephrine 0.3 mg/0.3 mL injection, auto-injector 0.3 mg IM PRN PRN Anaphylaxis 09/04/18 [History Confirmed 06/01/22] albuterol sulfate 90 mcg/actuation aerosol inhaler 1 - 2 puff inhalation Q4H PRN PRN Sob &/Or Wheezing 06/21/19 [History Confirmed 06/01/22] famotidine 20 mg tablet (Pepcid) 20 mg PO DAILY 02/19/21 [History Confirmed 06/01/22] diphenhydramine HCl 25 mg capsule (Benadryl) 25 mg PO QHS PRN Sleep 12/10/21 [History Confirmed 06/01/22] ascorbic acid (vitamin C) 1,000 mg tablet (Vitamin C) 1 g PO DAILY 03/01/22 [History Confirmed 06/01/22] ibuprofen 600 mg tablet 600 mg PO Q6H PRN pain #20 tabs 03/03/22 [Rx Confirmed 06/01/22] cetirizine 10 mg capsule (Zyrtec) 10 mg PO BID 04/01/22 [History Confirmed 06/01/22] lactobacillus combination no.9 4 billion cell capsule (Adult 50 Plus Probiotic) 1 mmu cells PO DAILY 04/01/22 [History Confirmed 06/01/22] cholecalciferol (vitamin D3) 25 mcg (1,000 unit) capsule (Vitamin D3) 25 mcg PO DAILY 04/16/22 [History Confirmed 06/01/22] magnesium 250 mg tablet 250 mg PO DAILY 04/16/22 [History Confirmed 06/01/22] metoprolol succinate 25 mg tablet,extended release 24 hr 25 mg PO DAILY #30 tabs 05/25/22 [Rx Confirmed 06/01/22] PFSH Medical History? Allergic contact urticaria Anemia Arthritis Asthma Blackout Bronchitis Cardiology follow-up encounter Chest pain on respiration Chronic diarrhea Clostridioides difficile infection Cutaneous mastocytosis Dietary restriction Fatigue Former smoker Frequent headaches Gastric reflux Hay fever Heart disease History of Helicobacter pylori infection History of hemorrhoids History of irregular heartbeat History of left heart catheterization (LHC) (~05/25/22) History of stress test History of ulceration Hx of echocardiogram Injury of head and neck Knee pain Limb weakness Mastocytosis Mitral valve prolapse Nonrheumatic mitral (valve) prolapse Normal colonoscopy Oral candidiasis Rectal abscess Right carpal tunnel syndrome Shortness of breath on exertion Urticaria Uterine fibroid Wears glasses Surgical History? H/O bilateral salpingectomy History of History of hysteroscopy History of incision and drainage History of tonsillectomy and adenoidectomy Hx of appendectomy Hx of hysterectomy Family History? Grandfather Heart disease Myocardial infarction,? Onset Age: 40Mother MelanomaFather Melanoma Prostate cancer CAD (coronary artery disease) Presence of stent in coronary arterySister MelanomaUncle CAD (coronary artery disease) Presence of stent in coronary arteryUnknown Myocardial infarction,? Onset Age: 47 ?? ? [id number] CVA (cerebral vascular accident),? Onset Age: 47 ?? ? [id number] Arthritis Hypertension Social History? Smoking Status:? Former smoker Tobacco: How many years used:? 10 alcohol intake:? never substance use type:? does not use caffeine:? Yes Type: coffee Number of servings: 4 what type of physical activity do you participate in:? none HPI HPI HPI: Patient presents for follow-up of a nonhealing perianal wound and reports some new bleeding/discomfort from the site since her last visit 04/09/22.? She reports that she underwent diagnostic EGD and colonoscopy on 04/21/[address] Sánchez.? She reports that the colonoscopy was completely normal, but that there may still be a couple of spots that need rebiopsied with a repeat scope according to Dr. Sánchez.? She then reports that she contracted COVID that led to bronchitis.? When she was recovered she had a heart monitor in place for some work-up of blackout spells that date back to when she was a teenager.? During this monitoring she was found to have ventricular tachycardia.? To be sure there was no vascular cause, she underwent cardiac catheterization on 05/25/[address] Su.? She confirms her record that she was told there were no concerns with her coronary vessels.? However, she reports that there was a reaction to the heparin and she required Benadryl.? She was prescribed a beta-adam and informed that she would still require a tilt table test?which is due next week.? She also notes that she began to have some bleeding from her perianal wound on 05/27/2022 that was associated with pain.? She reports that the bleeding seems to have tapered off, but the pain is still nagging. She reports that her bowel movements are regular and occur at least 1 times daily now.? She states that they are soft and no longer loose. ROS General General: Yes weight change and fatigue; No appetite, colon cancer, breast cancer or weakness HEENT HEENT: No difficulty swallowing, eye injury, eye surgery, swollen glands or hoarseness Endo Endocrine: No thyroid disease, diabetes mellitus, thyroid cancer, Hair loss, heat intolerance or cold intolerance Skin Skin: Yes rash; No changing moles Breast Breast: No left breast lump, right breast lump, nipple discharge, breast pain, abnormal mammogram, abnormal US or breast enlargement Musc Musculoskeletal: No back problems, arthritis, rheumatoid arthritis, gout or joint pain Cardio Cardiovascular: Yes murmur; No pacemaker, heart disease, atrial fibrillation, high blood pressure, heart attack, heart stent, palpitations, shortness of breat with exertion or chest pain Psych Psychiatric: Yes anxiety; No depression or hearing voices Resp Respiratory: Yes shortness of breath, No sleep apnea, No cough, No COPD, Yes asthma, No emphysema and No wheezing Gastro Gastrointestinal: Yes abdominal pain, Yes nausea or vomiting, Yes diarrhea, No constipation, No blood in stool, Yes acid reflux, No hemorrhoids, No ulcers, No gallbladder problem and No black,tarry stools Manish Hematologic: No blood thinners, No blood disorders, No bleeding, Yes anemia and No blood clots Neuro Neurologic: No system reviewed and no additional complaints, except as documented, No as per HPI, No abnormal gait, No abnormal hearing, No abnormal movements, No abnormal speech, No behavioral changes, No burning sensations, No confusion, No convulsions, No disequilibrium, No dizziness, No localized weakness, No frequent falls, No headache(s), No lack of coordination, No loss of vision, No memory loss, Yes numbness, No other visual disturbances, No radicular pain, No restless legs, No sensory deficit, No syncope, Yes tingling, No tremor(s), No weakness and No other Exam Const General: cooperative and anxious Orientation: alert, awake and oriented x3 Cardio Rate: regular rate Rhythm: regular rhythm Heart Sounds: click GI Other: Examined the left lateral decubitus position, patient's perianal area is marked by a nondraining shallow-based ulcer at the 3 o'clock position estimated at 2 mm in diameter.? There is no surrounding erythema or underlying fluctuance, but there is exquisite tenderness with exam. Assessment and Plan Assessment and Plan (1) Nonhealing surgical wound: ?Status:?Chronic ?Comment: This is a 46-year-old, medically complex, female who returns for evaluation of a nonhealing perianal wound status post operative I&D in November 2021.? She underwent recent left heart cath with angiographically normal coronaries.? She has been diagnosed with nonsustained ventricular tachycardia in addition to her known history of mitral valve prolapse.? As consequence she is placed on a beta-adam and is undergoing further evaluation with a tilt table test next week.? She reports new pain and bleeding from her nonhealing wound after having a couple of months symptom free.? She is unable to definitively connect this back to her heparinized state during cardiac catheterization as the symptoms started 2 days following the procedure.? She also suggests that she has been sitting more and this may be to blame.? On exam, the wound is little more prominent than it has been in the past, but there is a noninfected appearance and exam is limited by the exquisite tenderness of the site.? Mrs. Morelos confirms the bleeding has already stopped.? She confirms to that she has continued sitz bath's.? I have encouraged her to keep this up and also consider cleaning the area with some hydrogen peroxide.? Ultimately, I have offered to excise this area in its entirety since it has not responded well to either chemical or mechanical debridement- and perform an advancement flap.? I would like to await completion of her cardiac work-up before we undertake this intervention.? Patient is instructed to call once she has the results from next week's pending testing. ?Plan: ? Tentatively planning for exam under anesthesia with excision of chronic, nonhealing wound and creation of a perianal advancement flap.? We will look to exclude any use of latex or silicone as patient states she has had prior reactions to both of these materials. I have examined the patient and the H&P has been reviewed. There are no clinical changes since date of exam. We reviewed the procedure objectives and expected post procedure wound care instructions. Neither patient nor her have any questions. Therefore we will proceed for anorectal exam under anesthesia as well as probable advancement flap for nonhealing perianal wound as discussed above.
[2022-06-22] MEDS: Cefotetan 2 GM in 0.9% NS 100 ML IV (07:45)
[2022-06-22] MEDS: Lubricating Jelly 60 GM Tube 30 GM (08:03)
[2022-06-22] MEDS: Bupivacaine 0.25% 30 ML Vial (08:31)
[2022-06-22] MEDS: BACITRACIN/POLYMYXIN B 15 GM Tube 1 APPLIC (08:50)
--- NOTE | 2022-06-22 09:04 | PCM.OPRPT ---
Problems Associated Problem List Diagnoses (1) Nonhealing surgical wound: Report of Operation Date of Procedure: 06/22/22 Pre-Operative Diagnosis: Nonhealing postoperative perianal wound Post-Operative Diagnosis: Same Surgery/Procedure Performed:: 1. Anorectal exam under anesthesia 2. Perianal V-Y advancement flap Description of Surgical Findings:: - flap coverage of excised nonhealing postoperative sinus tract ? No evidence of perianal fistula Surgeon: Julio Conde bobbin winder tender: Shiloh Chu Type of Anesthesia: General/Supplemental Anesthesiologist: Conrado Lang Specimen's removed: perianal skin Drains: NA Estimated Blood Loss (mL): 10 Description of Procedure: After appropriate identification in the preoperative holding area the patient was brought to the operating room where she was positioned supine. She was administered preoperative antibiotics and induced with a general endotracheal anesthetic. She was then repositioned prone taking care to pad all pressure points. Her perineal area and perianal area were prepped and draped. A formal timeout was conducted to confirm the patient and the procedure to be performed. The procedure was begun with a digital rectal exam which did not find any anal canal fluctuance or masses. I then proceeded with insertion of a lubricated Hill-Valdovinos retractor. This retractor was oriented in such a way as to expose the inner aspect of the anal canal subjacent the patient's chronic wound (located at the 5 o'clock position). I then used a series of lacrimal probes to probe the wound and assess whether there was tracking towards the canal. The probe passed a distance of 1.5 cm, but no further and tracked towards the posterior wall of the anal canal despite changing this out for multiple diameter probes. Not finding a fistula I then planned our flap and excision area to include the patient's chronic sinus tract. A intersphincteric and pudendal nerve block was produced with 16 mL of 0.25% bupivacaine. Then sharply made a V shaped incision opening towards the patient's anal canal and excised a small area of tissue overlying the patient's chronic sinus tract. Manual pressure was applied for hemostasis so as not to compromise any of the underlying blood supply. I performed a curettage of the inner lining of the patient's sinus tract. I then closed the backside of the V-shaped incision to produce a Y-shaped confirmation and effectively advance the triangular tissue flap towards the soft tissue defect where the chronic wound had been excised. This was done with interrupted 3-0 Prolene suture. I was careful to take only the skin edges and used minimal manipulation of the tissue to protect the integrity of our flap. Some additional limited undermining was performed sharply towards the patient's anus with Metzenbaum scissors to allow that skin mobility towards the flap. This produced complete coverage without undue tension to any one part of the flap. I then used a 5-0 Monocryl to close some of the gaps adjacent to the apex of the flap in a interrupted fashion. Lastly the wound was cleansed and some bacitracin ointment was lathered onto its surface. Fluffed gauzes were used as a dressing and held in place with mesh panties. Patient was then supinated and extubated without difficulty. They were transferred to PACU for ongoing recovery. Complications NA Admit VTE Documentation VTE Present on Admission: Yes VTE Mechan Device Prophylaxis: SCD's
--- NOTE | 2022-06-22 09:06 | DCINST_ITS ---
Discharge Instructions Diet Discharge Diet: - (High fiber diet) Activity Discharge Activity: - (Limit sitting to no more than 10 to 15 minutes at a time and no baths) May shower in (days): 1 Lifting Restrictions: No lifting greater than 15 pounds for 2 weeks after surgery Additional Activity Instructions:: Limit sitting for no more than 10 to 15 minutes at a time. No baths or submerging wound. Dressing / Incision Call your doctor if your incision/area has: Continuous Slow Oozing, Sudden Increased Bleeding, Increased Pain/ Swelling, Increased Redness and Foul Smelling Discharge Call your doctor if you observe: Fever of 101 or Higher Change Dressing in: 1 day Cleanse incision/area with: Soap & Water Additional Dressing/Incision Instructions:: Please clean wound with mild detergent soap and wetted gauze once daily with peroxide-soaked gauze. Please use Colace or docusate sodium for bowel movements. Follow Up Care Please Follow Up With: Julio Conde MD When: 7 days Test Results: Test results from this visit will be discussed in further detail at your follow- up appointment, if applicable. Discharge Plan Admission Primary Reason for Your Visit: Nonhealing perianal wound Attending Provider: Julio Conde Primary Care Provider: Tomy Martel Discharge Orders/Prescriptions Prescriptions: New tramadol 50 mg tablet 50 mg PO Q6H PRN (Reason: pain) 5 Days Qty: 14 0RF Continued diphenhydramine HCl [Benadryl] 25 mg capsule 25 mg PO QHS PRN (Reason: ALLERGIES) Adult 50 Plus Probiotic 4 billion cell capsule 1 mmu cells PO DAILY metoprolol succinate 25 mg tablet extended release 24 hr 25 mg PO DAILY Qty: 90 3RF albuterol sulfate 90 mcg/actuation HFA aerosol inhaler 1 - 2 puff inhalation Q4H PRN PRN (Reason: Sob &/Or Wheezing) Qty: 8.5 2RF epinephrine 0.3 mg/0.3 mL auto-injector 0.3 mg IM ONCE PRN (Reason: Anaphylaxis) Qty: 2 0RF famotidine [Pepcid] 20 mg Tablet 20 mg PO DAILY magnesium 250 mg Tablet 250 mg PO DAILY cholecalciferol (vitamin D3) [Vitamin D3] 25 mcg (1,000 unit) Capsule 25 mcg PO DAILY ascorbic acid (vitamin C) [Vitamin C] 1,000 mg Tablet 1 g PO DAILY ibuprofen 600 mg tablet 600 mg PO Q6H PRN (Reason: pain) Qty: 20 0RF Referrals / Follow Up: Tomy Martel MD [Primary Care Provider] - Disposition Disposition (needs filled in before D/C Order can be placed): Home, Self Care
== END 2022-06-22 10:40 | disposition home or self-care (01) ==
LOC: SDC 06:06 → AC 06:07
PROVIDERS: PCP Internal Medicine; Referring Provider Surgery; Visit Provider Surgery
PROC: (CPT 14000; principal; 2022-06-22 07:15)
DX: T81.89XA Other complications of procedures, not elsewhere classified, initial encounter (principal); I47.20 Ventricular tachycardia, unspecified; Z87.891 Personal history of nicotine dependence
CPT/HCPCS: 14000; 00400; 88305; 88312; J7120; J2405

== ENCOUNTER → 2022-07-27 | Outpatient (CLI) | payer OTHER, MEDICAID, SELFPAY ==
[2022-07-27 16:47] LABS: Absolute Lymphocyte Count 1.21 X10^3/uL (0.83-4.51); Absolute Neutrophil Count 6.1 X10^3/uL (2.0-7.7); Basophil# 0.03 X10^3/uL; Basophil% 0.4 % (0-1); Eosinophil# 0.04 X10^3/uL; Eosinophils% 0.5 % (0-5); Hemoglobin 13.2 g/dL (12.0-15.0); Lymphocyte # 1.21 X10^3/ul (0.83-4.51); Lymphocyte % 15.5 % (19-41); Mean Corp Hgb Conc 31.4 g/dL (32-36); Mean Corpuscular Hgb 31.1 pg (27.0-32.0); Mean Corpuscular Volume 98.8 fL (81-99); Mean Platelet Vol. 10.8 fl (6.2-12.0); Monocyte# 0.46 X10^3/uL; Monocyte% 5.9 % (0-10); NRBC Flagged by Analyzer 0 % (0-5); Neutrophil # 6.05 X10^3/uL (2.7-7.7); Neutrophil % 77.3 % (47-70); Platelet Count 280 K/mm3 (150-450); RBC Distribution Width SD 46.9 fl (35.1-43.9); Red Blood Count 4.25 M/mm3 (4.2-5.4); White Blood Count 7.8 K/mm3 (4.4-11.0)
[2022-07-27 17:08] LABS: Erythrocyte Sedimentation Rate 9 mm/hr (0-30)
[2022-07-27 17:20] LABS: ALB/GLOB Ratio 1.1 RATIO (0.9-2.4); AST(SGOT) 15 U/L (15-37); Alanine Aminotransfer ALT/SGPT 23 U/L (13-56); Alkaline Phosphatase 46 U/L (45-117); Anion Gap 5 (5-15); BUN 12 mg/dL (7-18); CRP < 2.90 mg/L (0.0-3.0); Calcium,Total 9.4 mg/dL (8.5-10.1); Chloride 106 mmol/L (98-107); EST Glomerular Filtration Rate 82 mL/min (>60); Est Glom Filt Rate - Afr Amer 100 mL/min (>60); Globulin 3.8 g/dL (2.2-4.2); Glucose 97 mg/dL (74-106); Magnesium 2.1 mg/dL (1.6-2.6); Potassium 4.2 mmol/L (3.5-5.1); Prealbumin 23.8 mg/dL (20.0-40.0); Protein, Total 7.8 g/dL (6.4-8.2); Sodium Level 137 mmol/L (136-145); Thyroid Stim Hormone (TSH) 2.48 uIU/mL (0.358-3.74)
== END | disposition home or self-care (01) ==
LOC: BIMLAB 14:46
PROVIDERS: PCP Internal Medicine; Referring Provider Nurse Practitioner Family; Visit Provider Nurse Practitioner Family
DX: R25.3 Fasciculation (principal); T81.89XA Other complications of procedures, not elsewhere classified, initial encounter
CPT/HCPCS: 36415; 80053; 83735; 84134; 84443; 85025; 85652; 86140

== ENCOUNTER 2022-09-06 09:44 | Outpatient (RCR) | payer OTHER, MEDICAID, SELFPAY ==
[2022-09-06 10:16] VITALS: BP 136/48; PULSE 83; RESP 18; TEMP 36.5; BMI 27.6
--- NOTE | 2022-09-06 11:41 | HP.PCM_ITS ---
History of Present Illness Date of Service: 09/06/22 Chief Complaint: non healing ulcer near rectum History of Wound: 46 year old female presents for evaluation of non healing ulcer near her rectum. Her concerns are that this could be her Mastocytosis becoming systemic. Her issues started in November 2021 which she thought she had a hemorrhoid that became very painful to the point that she went to ED for evaluation. She had a CT which showed a 5 x 5 x 1.8 cm rim-enhancing perianal abscess. She was taken for an I&D on 11/28/[address] Odonnell who placed a reny drain. In Dr. Odonnell's operative report, she states it was at least 2 cm deep and started on the left side and it was noted that the cavity extended superiorly along the left rectal sidewall about 3 cm and posteriorly crossing the midline to the right posterior aspect. This was consistent with a horseshoe abscess. The operative cultures were positive for Streptococcus agalactiae, Strep anginosus, Streptococcus mitis/oralis, and Anaerobic cocci and Bacteroides fragilis. She was placed on Augmentin. Patient has multiple drug allergies, skin sensitivities and Mastocystosis. She uses Benadryl as needed for allergic reactions and has an epi pen. She ended up developing a reaction to the Irma drain and it was removed. Repeat CT 12/11/21 showed resolution of perianal abscess. She developed C. difficile infection from the antibiotics. She was treated with Flagyl, then when it didn't resolve treated with oral Vancomycin, then sent to GI, Dr. Sánchez who treated her with Flagyl and oral Vancomycin. Surgery 03/03/[address] Conde was Anorectal exam under anesthesia and Curettage of chronic wound which showed Sinus tract without evidence of communicating fistula that measured [address] Sánchez performed an Endoscopy and Colonoscopy on 04/21/22. Colonoscopy was normal. Endoscopy showed Z-line irregular, 37 cm from incisors, which the biopsy showed fragments of squamous epithelium with chronic inflammation. Small hiatal hernia. No gross lesions in the second portion of the duodenum, biopsy of duodenal mucosa showed no pathologic diagnosis. The ulcer continued not to heal and she was taken back to surgery on 06/22/[address] Conde for Anorectal exam under anesthesia and Perianal V-Y advancement flap. His Surgical Findings showed flap coverage of excised nonhealing postoperative sinus tract and no evidence of perianal fistula. She continued to have episodes of bloody drainage and when she saw Dr. Conde for her 3rd post operative visit on 07/21/22. 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 Patient isn't interested in further surgery so she has been dealing with this at home. She went to see her PCP on 07/28/22 and was referred to the wound healing center. She has an appointment with her installation drafter on 09/15/22. Along with dealing with this non healing ulcer, she also has been having a cardiac work up for NSVT and MVP with palpations, EF = 65% 04/2022. She continues to have episodes of drainage typically once per week which she states will saturated her underwear and her pants. She comes in today for further evaluation. Today she denies any fever, chills, nausea or vomiting. Progress of Wound: Scarring on the left perianal area, difficult to see the tunnel opening, no drainage at the site. [facility] Medical History Allergic contact urticaria Anemia Arthritis Asthma Blackout Bronchitis Cardiology follow-up encounter Chest pain on respiration Chronic diarrhea Clostridioides difficile infection Cutaneous mastocytosis Delayed surgical wound healing Dietary restriction Eye muscle twitches Fatigue Former smoker Frequent headaches Gastric reflux Hay fever Heart disease History of Helicobacter pylori infection History of hemorrhoids History of irregular heartbeat History of irregular heartbeat History of stress test History of ulceration Hx of echocardiogram Injury of head and neck Knee pain Limb weakness Mastocytosis Mitral valve prolapse Nonrheumatic mitral (valve) prolapse Normal colonoscopy Oral candidiasis Rectal abscess Right carpal tunnel syndrome Shortness of breath on exertion Tilt table evaluation Urticaria Uterine fibroid Wears glasses Home Medications famotidine 20 mg tablet (Pepcid) 20 mg PO DAILY 02/19/21 [History Last Taken 06/22/22] diphenhydramine HCl 25 mg capsule (Benadryl) 25 mg PO QHS PRN ALLERGIES 12/10/21 [History Last Taken Unknown] ascorbic acid (vitamin C) 1,000 mg tablet (Vitamin C) 1 g PO DAILY 03/01/22 [History Last Taken Unknown] ibuprofen 600 mg tablet 600 mg PO Q6H PRN pain #20 tabs 03/03/22 [Rx Last Taken Unknown] lactobacillus combination no.9 4 billion cell capsule (Adult 50 Plus Probiotic) 1 mmu cells PO DAILY 04/01/22 [History Last Taken Unknown] cholecalciferol (vitamin D3) 25 mcg (1,000 unit) capsule (Vitamin D3) 25 mcg PO DAILY 04/16/22 [History Last Taken Unknown] magnesium 250 mg tablet 250 mg PO DAILY 04/16/22 [History Last Taken Unknown] albuterol sulfate 90 mcg/actuation aerosol inhaler 1 - 2 puff inhalation Q4H PRN PRN Sob &/Or Wheezing #8.5 grams 06/15/22 [Rx Last Taken Unknown] epinephrine 0.3 mg/0.3 mL injection, auto-injector 0.3 mg (0.3 mL) IM ONCE PRN Anaphylaxis #2 ea 06/15/22 [Rx Last Taken Unknown] metoprolol succinate 25 mg tablet,extended release 24 hr 25 mg PO DAILY #90 tabs 06/17/22 [Rx Last Taken 06/22/22] Allergy/AdvReac Type Severity Reaction Status Date / Time latex Allergy Other Verified 07/27/22 14:27 morphine Allergy Anaphylaxis Verified 07/27/22 14:27 NSAIDS (Non-Steroidal Allergy Hives Verified 07/27/22 14:27 Anti-Inflamma silicone Allergy Hives Verified 07/27/22 14:27 celecoxib [From Celebrex] AdvReac Other Verified 07/27/22 14:27 food dye Allergy Hives Uncoded 07/27/22 14:27 NARCOTICS AdvReac HYPERSENSTIVE Uncoded 07/27/22 14:27 TO NARCOTICS Family History Grandfather Heart disease Myocardial infarction, Onset Age: 40 Mother Melanoma Father Melanoma Prostate cancer CAD (coronary artery disease) Presence of stent in coronary artery Sister Melanoma Uncle CAD (coronary artery disease) Presence of stent in coronary artery Unknown Myocardial infarction, Onset Age: 46 x2 Unknown CVA (cerebral vascular accident), Onset Age: 47 x3 Other Arthritis Hypertension Surgical History H/O bilateral salpingectomy History of History of esophagogastroduodenoscopy (EGD) History of hysteroscopy History of incision and drainage History of left heart catheterization (LHC) (~05/25/22) History of tonsillectomy and adenoidectomy Hx of appendectomy Hx of hysterectomy Social History Smoking Status: Former smoker Tobacco: How many years used: 10 how long ago did patient quit smokin years ago alcohol intake: never substance use type: does not use caffeine: Yes Type: coffee Number of servings: 4 what type of physical activity do you participate in: none ROS Constitutional Constitutional: Reports systems reviewed and no addt'l complaints, except as documented Eyes Eyes: Reports systems reviewed and no addt'l complaints, except as documented ENT HEENT: Reports systems reviewed and no addt'l complaints, except as documented Cardiovascular Cardiovascular: Reports systems reviewed and no addt'l complaints, except as documented Respiratory/Chest Respiratory/Chest: Reports systems reviewed and no addt'l complaints, except as documented Gastrointestinal Gastrointestinal: Reports systems reviewed and no addt'l complaints, except as documented Musculoskeletal Musculoskeletal: Reports systems reviewed and no addt'l complaints, except as documented Integumentary Integumentary: Reports as per HPI and skin ulcer Neurologic Neurologic: Reports systems reviewed and no addt'l complaints, except as documented Psychiatric Psychiatric: Reports as per HPI and anxiety Vital Signs Vital Signs Vital Signs: 09/06/22 10:16 Temperature 97.7 F L Temperature Source Temporal Pulse Rate 83 Respiratory Rate 18 Blood Pressure 136/48 H Blood Pressure Mean 77 Blood Pressure Source Monitor Weight Weight: 165 lb 12.203 oz Body Mass Index (BMI) 27.6 Physical Exam Const alert, oriented x3 and no apparent distress General Appearance: cooperative HEENT normocephalic Neck full ROM Resp normal respiratory effort and normal air movement Effort and Inspection: able to speak in complete sentences Cardio regular rate and regular rhythm GI soft to palpation and non-tender Back/Spine normal ROM Extremity full ROM, normal capillary refill and no pedal edema Skin Skin Narrative: Scarring present on left perianal area. There is a tunnel that is difficult to see but able use a probe and measure the depth of 0.7. Small amount of bloody drainage present after removing probe. Opening too small for stick end of cotton applicator. Neuro oriented x3 Psych mental status grossly normal, thought process normal, cooperative and affect normal Debridement Note Debridement Note Wound debrided: vannesa anal ulcer Laterality: Left Wound Grade/Stage: unstagable Type of Debridement: Excisional debridement Anesthesia Used: 4% Lidocaine Solution Depth: Down to and including healthy tissue and in the subcutaneous layer Percentage of wound debrided: 100 Instrument Used: - (1 mm curette) Tissue Removed: Devitalized tissue and slough Amount of bleeding with debridement: Mild Bleeding Controlled with: Pressure and Compression and gauze Patient tolerated procedure: Patient tolerated procedure well Debridement Free Text: Used 1 mm curette to debride tunnel to remove non viable tissue to help with wound healing. Post-Debridement Measurements and Additional Note: Post-Debridement Measurements/Treatment WC - Nurse 1 - General Ulcer Assessment Start: 09/06/22 10:15 Freq: Status: Active Protocol: ABDIRAHMAN.DMITRIY Activity Type Activity Date Activity User E-sign Co-sign Detail Recorded Client Recorded Date Recorded By Document 09/06/22 10:16 DL [id number] 09/06/22 10:32 DL 09/06/22 10:16 WC - Today's Visit Information Type of service Initial Visit Arrival Mode Ambulatory Transfer Assistance None Patient Identification Verified (Name & Yes ) Patient Requires Transmission-Based No Precautions Height and Weight Height 5 ft 5 in Weight 165 lb 12.203 oz Weight in Pounds 165.8 lbs Body Mass Index (BMI) 27.6 BMI Classification Overweight BSA - Geovanna 1.83 Vital Signs Temperature (97.8 F-99.1 F) 97.7 F L Temperature Source Temporal Pulse Rate (60-100) 83 Pulse Location Monitor Respiratory Rate (12-18) 18 Respiratory rate source Observation Blood Pressure (90/60-120/80) 136/48 H Blood Pressure Mean 77 Source Monitor Pain Scale: 0-10 Numeric Is Patient Pain Free? Yes Communication Assessment Preferred language [place] Able to Read Yes Able to Write Yes Communication Tools None Right Hearing Abillity Normal Left Hearing Abillity Normal Visual Assistive Devices None Teaching Assessment Preferences Verbal,Written, Demonstration Barriers to Learning None Readiness To Learn Good Willingness to Engage in Self Management Med Activies Readiness to Engage in Self Management Med Activities Anxiety Level Calm Cooperation Cooperative Perception Coherent Interest in Health Problem Asks Questions Education Importance Acknowledges Need Does Patient Smoke tobacco or other No substances Smoking Status Former smoker Is Patient Diabetic No Functional Assessment Recent Decline in Ability to Perform Denies Any Declines Assistive Device With Patient N/A Culture/Catholic/Lithograph Designer Cultural/Catholic Needs that may affect No Treatment Plan Would you allow our hospital demo event specialist to No meet you for the purpose of spiritual/ emotional support? Lithograph Designer to contact place of tenriism No Teaching: Wound Center *Nutrition -Person Taught Patient Discharge Instructions -Person Taught Patient Dressing Your Wound -Person Taught Patient *Welcome to the Wound Center -Person Taught Patient WC - Nurse 1 - General Ulcer Measurement Start: 09/06/22 10:15 Freq: Status: Active Protocol: Activity Type Activity Date Activity User E-sign Co-sign Detail Recorded Client Recorded Date Recorded By Document 09/06/22 10:16 ANAY [id number] 09/06/22 10:32 DL 09/06/22 10:16 Wound Center Nurse 1 #1 PeriAnal -Current Size (cm) - Length 0.2 -Current Size (cm) - Width 0.2 -Current Size (cm) - Depth 0.2 -Total Square Cm 0.04 -Photo Taken Yes -Exudate Amt Small -Exudate Type Serosanguineous -Wound Margin Indistinct, Non -Visible -Granulation Amt Small (1-33%) -Granulation Quality [place] -Necrosis Amt None Present (0 %) -Structure Exposed N/A -Texture (Vannesa-wound Skin Appearance) No Abnormality -Moisture (Vannesa-wound Skin Appearance) No Abnormality -Color (Vannesa-wound Skin Appearance) No Abnormality -Temperature (Vannesa-wound Skin No Abnormality Appearance) (Pt Warm) -Ulcer Cleansing Soap and Water -Foul Odor after Cleansing No WC - Nurse 2 - General Ulcer CM Notes Start: 09/06/22 10:15 Freq: Status: Active Protocol: Activity Type Activity Date Activity User E-sign Co-sign Detail Recorded Client Recorded Date Recorded By Document 09/06/22 11:04 HKAI [id number] 09/06/22 11:17 KHAI 09/06/22 11:04 Wound Center Nurse 2 -Time 11:16 -Correct Patient Yes -Correct Side, Site, Position Yes -Correct Procedure Yes -Procedure Performed Yes -Type of Procedure Debridement -Clinical Debridement Subcutaneous -Tissue Removed Subcutaneous -Post Debridement (cm) - Length 0.1 -Post Debridement (cm) - Width 0.1 -Post Debridement (cm) - Depth 0.7 -Total Square (Post) (cm) 0.01 -Area of Debridement (cm) - Length 0.1 -Area of Debridement (cm) - Width 0.1 -Total Square (Area) (cm) 0.01 -Tunneling No -Undermining/Tunneling No -Circular Undermining No -Wound/Ulcer Outcome Not Healed -Ulcer Cleansing Rinsed/ Irrigated with Saline -Foul Odor after Cleansing No -Bioengineered Tissue No -Bleeding Controlled with Pressure -Treatment Response Procedure Tolerated Well -Offloading No -Debridement - Subq, 1st 20sq cm Yes Pain Scale: 0-10 Numeric Is Patient Pain Free? Yes - Nurse 3 - General Ulcer D/C NN Start: 09/06/22 10:15 Freq: Status: Active Protocol: Activity Type Activity Date Activity User E-sign Co-sign Detail Recorded Client Recorded Date Recorded By Document 09/06/22 11:22 [id number] 09/06/22 11:23 09/06/22 11:22 Is Patient Pain Free? Yes WC - Visit Discharge Discharge Condition Stable Ambulatory Status Ambulatory Transportation Private Auto Medication Reconcilliation completed & Yes provided to patient/care provider Clinical Summary of Care Provided Yes Charges/Coding Visit Charges Office Visits / Consults: 80877 OV L4 Est (25 modifier) Procedures Integumentary 111xxx-113xx: 09776 Dian subq tissue 20 sq cm/< Assessment/Plan Assessment/Plan (1) Ulcer of perianal area: CODE(S): L98.499 - Non-pressure chronic ulcer of skin of other sites with unspecified severity (2) Draining postoperative wound: CODE(S): T81.89XA - Other complications of procedures, not elsewhere classified, initial encounter (3) Delayed surgical wound healing: CODE(S): T81.89XA - Other complications of procedures, not elsewhere classified, initial encounter (4) Mastocytosis: CODE(S): D47.09 - Other mast cell neoplasms of uncertain behavior PLAN: Plan Patient evaluated at the wound center today. She has an extensive history with not only this non healing vannesa anal ulcer but also with her Mastocytosis and recent cardiac issues. After reading Dr. Conde's last postop note, I had a lengthy discussion with the patient about her doing the follow up with her installation drafter and going to see a Colorectal specialist. Patient states that she wasn't able to get into see her installation drafter, Dr. Godfrey until 09/15/22. She states that she has had several episodes where she has had allergic reaction to mast cell reaction. She has not seen her financial recruiter recently due to him not knowing what else to do for her. I will refer her to Dr. Sousa at [facility] for further evaluation of her complex case. She does not want further surgery so she was hoping that this ulcer would just heal on its own. I agree with Dr. Conde's note that she should see a colorectal specialist to rule out a possible fistula to this non healing ulcer. I called and spoke with Dr. Conde to see if he has any suggestions for referral and he stated that Dr. Sue Rodríguez in [place] ([facility]). I will refer the patient to her for further evaluation of this ulcer. Instructed patient to continue to keep this area clean with soap and water. Avoid soaking in baths/pools/hot tubs. This ulcer opening is too small to pack. She should wear a pad in case of drainage. She should off load to prevent pressure on this area. Encouraged high protein diet to help with wound healing. Follow up with me as needed. I would prefer her to have her appointment with colorectal surgeon to make sure there is no vannesa anal abscess before she would have any further wound center debridements. 45 minutes spent face to face with patient with additional [address] Conde, reviewing charts and documentation.
== END 2022-09-07 16:18 | disposition home or self-care (01) ==
LOC: WC 09:44
PROVIDERS: PCP Internal Medicine; Visit Provider Nurse Practitioner Family
DX: T81.89XA Other complications of procedures, not elsewhere classified, initial encounter (principal); L98.499 Non-pressure chronic ulcer of skin of other sites with unspecified severity; K62.6 Ulcer of anus and rectum; D47.01 Cutaneous mastocytosis; J45.909 Unspecified asthma, uncomplicated; Z87.891 Personal history of nicotine dependence; Z79.899 Other long term (current) drug therapy
CPT/HCPCS: 11042; 99214; G0463

== ENCOUNTER → 2022-09-15 | Outpatient (CLI) | payer OTHER, MEDICAID, SELFPAY ==
[2022-09-15 17:38] LABS: Absolute Lymphocyte Count 1.31 X10^3/uL (0.83-4.51); Absolute Neutrophil Count 7.1 X10^3/uL (2.0-7.7); Basophil# 0.04 X10^3/uL; Basophil% 0.4 % (0-1); Eosinophil# 0.06 X10^3/uL; Eosinophils% 0.7 % (0-5); Hematocrit 41.2 % (37-47); Hemoglobin 13.2 g/dL (12.0-15.0); Lymphocyte # 1.31 X10^3/ul (0.83-4.51); Lymphocyte % 14.5 % (19-41); Mean Corpuscular Hgb 31.1 pg (27.0-32.0); Mean Corpuscular Volume 96.9 fL (81-99); Mean Platelet Vol. 10.3 fl (6.2-12.0); Monocyte# 0.53 X10^3/uL; Monocyte% 5.9 % (0-10); NRBC Flagged by Analyzer 0 % (0-5); Neutrophil # 7.09 X10^3/uL (2.7-7.7); Neutrophil % 78.3 % (47-70); Platelet Count 290 K/mm3 (150-450); RBC Distribution Width CV 12.8 % (11.6-14.6); RBC Distribution Width SD 45.5 fl (35.1-43.9); Red Blood Count 4.25 M/mm3 (4.2-5.4); White Blood Count 9.1 K/mm3 (4.4-11.0)
== END | disposition home or self-care (01) ==
LOC: MTLAB 15:32
PROVIDERS: PCP Internal Medicine; Visit Provider Dermatology
DX: D47.01 Cutaneous mastocytosis (principal); L02.91 Cutaneous abscess, unspecified; L82.1 Other seborrheic keratosis; D18.01 Hemangioma of skin and subcutaneous tissue; Z71.89 Other specified counseling
CPT/HCPCS: 36415; 83520; 85025

== ENCOUNTER 2022-09-16 13:20 | Outpatient (RCR) | payer OTHER, MEDICAID, SELFPAY | END 2022-09-21 23:59 | LOC: LABSPEC 13:20 | PROVIDERS: PCP Internal Medicine; Visit Provider Dermatology | DX: D47.01 Cutaneous mastocytosis (principal); L02.91 Cutaneous abscess, unspecified; L82.1 Other seborrheic keratosis; D18.01 Hemangioma of skin and subcutaneous tissue; Z71.89 Other specified counseling | CPT/HCPCS: 87070; 87077; 87186; 87205 ==

== ENCOUNTER → 2022-12-06 | Outpatient (CLI) | payer OTHER, MEDICAID, SELFPAY | END | disposition home or self-care (01) | LOC: LABSPEC 13:00 | PROVIDERS: PCP Internal Medicine; Referring Provider Dermatology; Visit Provider Dermatology | DX: L02.31 Cutaneous abscess of buttock (principal); D47.01 Cutaneous mastocytosis | CPT/HCPCS: 87070; 87077; 87186; 87205 ==

== ENCOUNTER → 2022-12-13 | Outpatient (CLI) | payer OTHER, MEDICAID, SELFPAY | END | disposition home or self-care (01) | PROVIDERS: PCP Internal Medicine; Visit Provider Physician Assistant | DX: J02.9 Acute pharyngitis, unspecified (principal) | CPT/HCPCS: 87070 ==